=== PATIENT | female | born 1940 | race Caucasian/White ===

== ENCOUNTER 2019-01-08 10:03 | Emergency (ER) | payer OTHER ==
[2019-01-08] MEDS ORDERED: TRAMADOL HCL 50 MG TAB ONE (10:37)
--- NOTE | 2019-01-08 11:33 | RAD REPORT ---
EXAM DESCRIPTION: RAD - Chest Pa And Lat (2 Views) - 01/08/2019 10:46 am CLINICAL HISTORY: PAIN, left-sided back and rib pain COMPARISON: August 2017 TECHNIQUE: PA and lateral views of the chest were obtained. FINDINGS: The lungs are clear of failure, infiltrate or mass. Interstitial pattern is similar to th e comparison. Heart size is normal and central vasculature is within normal limits. No pleural effus ion or pneumothorax seen. Bones appear mildly osteopenic. No gross rib abnormality seen. Rib detail is limited on two view imaging. No acute aortic finding. Trachea is midline. Patient does have very advanced degenerative change and scoliotic curvature in the upper lumbar spine . This is only partially imaged on this study. IMPRESSION: No acute cardiopulmonary process. Rib detail is limited. Advanced degenerative change with left convex scoliotic curvature at the upper lumbar spine, only par tially imaged on this study.
--- NOTE | 2019-01-08 11:52 | ER ---
Nurse's Notes [facility] Name: Nilsa Romero Age: 78 yrs Sex: Female : 1940 Arrival Date: 01/08/2019 Time: 10:07 Bed 18 Private MD: Pio Campbell Diagnosis: Low back pain-chronic Presentation: 01/08 10:08 Presenting complaint: Patient states: Intermittent left low back pain, radiates to left jl7 upper back, began about a year ago and got worse this weekend. Transition of care: patient was not received from another setting of care. Onset of symptoms was 2018. Risk Assessment: Do you want to hurt yourself or someone else? Patient reports no desire to harm self or others. Initial Sepsis Screen: Does the patient meet any 2 criteria? No. Patient's initial sepsis screen is negative. Does the patient have a suspected source of infection? No. Patient's initial sepsis screen is negative. Care prior to arrival: None. 10:08 Method Of Arrival: Ambulatory [facility] 10:08 Acuity: BERNARD 3 jl7 Triage Assessment: 10:15 General: Appears in no apparent distress. comfortable, Behavior is cooperative, bp appropriate for age, anxious. Pain: Complains of pain in back. EENT: No deficits noted. Neuro: No deficits noted. Cardiovascular: No deficits noted. Respiratory: No deficits noted. GI: No signs and/or symptoms were reported involving the gastrointestinal system. : No signs and/or symptoms were reported regarding the genitourinary system. Derm: No deficits noted. Musculoskeletal: Circulation, motion, and sensation intact. Range of motion: intact in all extremities. Historical: - Allergies: 10:13 No Known Allergies; jl7 - Home Meds: 10:13 Atenolol Oral [Active]; pravastatin oral oral [Active]; losartan oral oral [Active]; jl7 Tramadol Oral [Active]; indapamide oral oral [Active]; levothyroxine 150 mcg tab [Active]; - PMHx: 10:13 Hyperlipidemia; Hypertension; Hypothyroidism; jl7 - PSHx: 10:13 Hysterectomy; jl7 - Immunization history:: Adult Immunizations up to date. - Social history:: Smoking status: Patient/guardian denies using tobacco. - Ebola Screening: : No symptoms or risks identified at this time. Screenin:33 Abuse screen: Denies threats or abuse. Denies injuries from another. Nutritional bp screening: No deficits noted. Tuberculosis screening: No symptoms or risk factors identified. Fall Risk None identified. Assessment: 10:15 General: SEE TRIAGE NOTE. Neuro: Level of Consciousness is awake, alert, obeys bp commands, Oriented to person, place, time, situation, Appropriate for age. 10:47 Reassessment: PT RETURNED FROM XRAY. bp 12:00 Reassessment: PT D/C HOME AMBULATORY WITH FAMILY, DX WITH CHRONIC BACK PAIN. bp Vital Signs: 10:13 BP 213 / 81; Pulse 69; Resp 16 S; Temp 97.4(TE); Pulse Ox 96% on R/A; Pain 8/10; jl7 10:48 BP 216 / 89; Pulse 68; Resp 16; Pulse Ox 96% ; bp 11:35 BP 203 / 74; Pulse 65; Resp 17; Temp 97.5; Pulse Ox 96% ; bp ED Course: 10:07 Patient arrived in ED. mr 10:07 Pio Campbell DO is Private Physician. mr 10:10 Triage completed. jl7 10:13 Arm band placed on right wrist. jl7 10:15 Rody Francis FNP-C is [facility]. kb 10:15 Dmitry Delgadillo MD is Attending Physician. kb 10:18 Maged Lazo, LESLIE is Primary Nurse. bp 10:33 Patient has correct armband on for positive identification. Bed in low position. Call bp light in reach. Side rails up X2. 10:40 Chest Pa And Lat (2 Views) XRAY In Process Unspecified. EDMS 11:52 Pio Campbell DO is Referral Physician. kb 12:00 No provider procedures requiring assistance completed. Patient did not have IV access bp during this emergency room visit. Administered Medications: 10:48 Drug: traMADol 50 mg Route: PO; bp 12:01 Follow up: Response: No adverse reaction; Pain is decreased bp Outcome: 11:52 Discharge ordered by . kb 12:00 Discharged to home ambulatory, with family. bp 12:00 Condition: stable 12:00 Discharge instructions given to patient, Instructed on discharge instructions, follow up and referral plans. medication usage, Demonstrated understanding of instructions, follow-up care, medications, Prescriptions given X 2. 12:01 Patient left the ED. bp Signatures: Dispatcher [employer] EDMS Rody Francis, LORI KNOXP-Chintan Mike Laura mr Jose Daniel Driver, RN RN jl7 Maged Lazo RN RN bp Corrections: (The following items were deleted from the chart) 10:15 10:08 Acuity: BERNARD 4 jl7 jl7
--- NOTE | 2019-01-08 11:53 | EDPHYS ---
Physician Documentation [facility] Name: Nilsa Romero Age: 78 yrs Sex: Female : 1940 Arrival Date: 01/08/2019 Time: 10:07 Bed 18 Private MD: Pio Campbell ED Physician Dmitry Delgadlilo HPI: 01/08 11:03 This 78 yrs old Female presents to ER via Ambulatory with complaints of Back kb Pain. 11:03 The patient presents with pain that is chronic, with no known mechanism of injury. The kb symptoms are located in the left subscapular area. Onset: The symptoms/episode began/occurred 1.5 year(s) ago, and became worse 3 day(s) ago. The pain does not radiate. Associated signs and symptoms: The patient has no apparent associated signs or symptoms. The problem was sustained from a chronic condition, without known cause. Modifying factors: The patient symptoms are alleviated by nothing, the patient symptoms are aggravated by nothing. Severity of symptoms: At their worst the symptoms were moderate, in the emergency department the symptoms are unchanged. The patient has experienced similar episodes in the past. The patient has not recently seen a physician. Pt reports chronic back pain that started approx 1.5 years ago. States the pain comes and goes, but it started up again 3 days ago and it has been constant since then. Nothing makes pain better or worse. Has seen Dr Monaco for this in the past and had negative x-rays. Denies injury or trauma. Historical: - Allergies: 10:13 No Known Allergies; jl7 - Home Meds: 10:13 Atenolol Oral [Active]; pravastatin oral oral [Active]; losartan oral oral [Active]; jl7 Tramadol Oral [Active]; indapamide oral oral [Active]; levothyroxine 150 mcg tab [Active]; - PMHx: 10:13 Hyperlipidemia; Hypertension; Hypothyroidism; jl7 - PSHx: 10:13 Hysterectomy; jl7 - Immunization history:: Adult Immunizations up to date. - Social history:: Smoking status: Patient/guardian denies using tobacco. - Ebola Screening: : No symptoms or risks identified at this time. ROS: 11:03 Constitutional: Negative for fever, chills, and weight loss, Neck: Negative for injury, kb pain, and swelling, Cardiovascular: Negative for chest pain, palpitations, and edema, Respiratory: Negative for shortness of breath, cough, wheezing, and pleuritic chest pain, Abdomen/GI: Negative for abdominal pain, nausea, vomiting, diarrhea, and constipation, : Negative for injury, bleeding, discharge, and swelling, MS/Extremity: Negative for injury and deformity, Skin: Negative for injury, rash, and discoloration, Neuro: Negative for headache, weakness, numbness, tingling, and seizure. 11:03 Back: Positive for pain at rest, pain with movement. Exam: 11:02 Constitutional: This is a well developed, well nourished patient who is awake, alert, kb and in no acute distress. Head/Face: Normocephalic, atraumatic. Neck: Trachea midline, no thyromegaly or masses palpated, and no cervical lymphadenopathy. Supple, full range of motion without nuchal rigidity, or vertebral point tenderness. No Meningismus. Chest/axilla: Normal chest wall appearance and motion. Nontender with no deformity. No lesions are appreciated. Cardiovascular: Regular rate and rhythm with a normal S1 and S2. No gallops, murmurs, or rubs. Normal PMI, no JVD. No pulse deficits. Respiratory: Lungs have equal breath sounds bilaterally, clear to auscultation and percussion. No rales, rhonchi or wheezes noted. No increased work of breathing, no retractions or nasal flaring. Abdomen/GI: Soft, non-tender, with normal bowel sounds. No distension or tympany. No guarding or rebound. No evidence of tenderness throughout. Skin: Warm, dry with normal turgor. Normal color with no rashes, no lesions, and no evidence of cellulitis. MS/ Extremity: Pulses equal, no cyanosis. Neurovascular intact. Full, normal range of motion. Neuro: Awake and alert, GCS 15, oriented to person, place, time, and situation. Cranial nerves II-XII grossly intact. Motor strength 5/5 in all extremities. Sensory grossly intact. Cerebellar exam normal. Normal gait. 11:02 Back: pain, that is moderate, of the left subscapular area, ROM is normal, normal spinal alignment noted, CVA tenderness, is absent, vertebral tenderness, is not appreciated. Vital Signs: 10:13 BP 213 / 81; Pulse 69; Resp 16 S; Temp 97.4(TE); Pulse Ox 96% on R/A; Pain 8/10; jl7 10:48 BP 216 / 89; Pulse 68; Resp 16; Pulse Ox 96% ; bp 11:35 BP 203 / 74; Pulse 65; Resp 17; Temp 97.5; Pulse Ox 96% ; bp MDM: 10:16 Patient medically screened. kb 11:02 Data reviewed: vital signs, nurses notes. Data interpreted: Pulse oximetry: on room air kb is 96 %. Interpretation: normal. 11:49 Counseling: I had a detailed discussion with the patient and/or guardian regarding: the kb historical points, exam findings, and any diagnostic results supporting the discharge/admit diagnosis, radiology results, the need for outpatient follow up, a family practitioner, to return to the emergency department if symptoms worsen or persist or if there are any questions or concerns that arise at home. ED course: Pt reports pain is better, but still there. Denies headache or any other symptoms related to elevated blood pressure. Reports she didn't take her blood pressure meds because of the pain in her back so that is probably why it is up, plus she didn't sleep much last night. Has appt with Dr Campbell tomorrow. Educated to discuss blood pressure if it is still elevated after taking her medications and to discuss possible MRI for chronic back pain. 01/08 10:27 Order name: Chest Pa And Lat (2 Views) XRAY; Complete Time: 11:39 kb 01/08 11:31 Order name: Vital Signs; Complete Time: 11:35 kb Administered Medications: 10:48 Drug: traMADol 50 mg Route: PO; bp 12:01 Follow up: Response: No adverse reaction; Pain is decreased bp Disposition: 12:12 Co-signature as Attending Physician, Dmitry Delgadillo MD. rn Disposition: 01/08/19 11:52 Discharged to Home. Impression: Low back pain - chronic. - Condition is Stable. - Discharge Instructions: Back Injury Prevention, [id number], Back Pain, Adult, [id number], Back Exercises, [id number]. - Prescriptions for Skelaxin 800 mg Oral Tablet - take 1 tablet by ORAL route every 8 hours As needed; 30 tablet. Diclofenac Sodium 75 mg Oral Tablet, Delayed Release (E.C.) - take 1 tablet by ORAL route 2 times per day As needed; 30 tablet. - Medication Reconciliation Form, Thank You Letter, Antibiotic Education, Prescription Opioid Use form. - Follow up: Emergency Department; When: As needed; Reason: Worsening of condition. Follow up: Pio Campbell DO; When: Tomorrow; Reason: Recheck today's complaints, Continuance of care, Re-evaluation by your physician. Signatures: Dispatcher [employer] EDMI Rody Francis, WOOL DYER-C WOOL DYER-Ckb Dmitry Delgadillo MD MD rn Jose Daniel Driver RN RN jl7 Maged Lazo RN RN bp Corrections: (The following items were deleted from the chart) 12:01 11:52 01/08/2019 11:52 Discharged to Home. Impression: Low back pain - chronic. bp Condition is Stable. Forms are Medication Reconciliation Form, Thank You Letter, Antibiotic Education, Prescription Opioid Use. Follow up: Emergency Department; When: As needed; Reason: Worsening of condition. Follow up: Pio Campbell; When: Tomorrow; Reason: Recheck today's complaints, Continuance of care, Re-evaluation by your physician. kb
[2019-01-08 12:10] VITALS: O2SAT 96
[2019-01-08 12:12] VITALS: BP 203/74; TEMP 97.5
== END 2019-01-08 12:01 | disposition home or self-care (01) ==
LOC: ER 10:03
DX: M54.5 Low back pain (principal); I10 Essential (primary) hypertension; E03.9 Hypothyroidism, unspecified; E78.5 Hyperlipidemia, unspecified
CPT/HCPCS: 71046; 99283

== ENCOUNTER 2020-05-14 09:17 | Emergency (ER) | payer OTHER ==
--- OUTSIDE RECORDS SUMMARY | 2020-05-14 09:20 | XMS REPORT | Continuity of Care Document ---
:1940 Author Organization [facility] t Address [address] [place] [address] Care Team Providers Name Role Phone Unavailable Unavailable Unavailable Problems Condition Condition Condition Status Onset Resolution Last Treating Co mments Source Name Details Category Date Date Treatment Clinician Date Hypothyroi Hypothyroi Problem Active 0 [facility] dism dism 5-12 Family 00:00: Practic 00 e Chronic Chronic Problem Active 2020-0 [facility] back pain Back Pain 5-12 Fami ly 00:00: Practic 00 e Hyperlipid Hyperlipid Problem Active 2020-0 [facility] emia emia 5-11 Family 00:00: Practic 00 e Essential Essential Problem Active 0 [place] samuel hypertensi Hypertensi 5-11 Fa piper on on 00:00: Practic 00 e Allergies, Adverse Reactions, Alerts This patient has no known allergies or adverse reactions. Social History Smoking Status Start Date Stop Date Source Former Smoker [facility] Family P ractice Medications Ordered Filled Start Stop Current Ordering Indication Dosage Frequency Signature Comments Components Source Medication Medication Date Date Medication? Clinician (SIG) Name Name Levothyroxi Levothyroxi 2019-0 Yes [place] [address] [facility] ne Sodium ne Sodium 3-30 [place] in the [facility]ha kes - 00:00: morning on Mem 00 an empty l stomach Outpati ent Clinics atenolol atenolol No 1 Q1D atenolol [place] samuel 100 mg 100 mg 100 mg Family tablet Take tablet Take tablet Practic 1 tablet 1 tablet Take 1 e every day every day tablet by oral by oral every day route. route. by oral route. ibuprofen ibuprofen No 1 Q6H ibuprofen [place] 200 mg 200 mg 200 mg Family tablet Take tablet Take tablet Practic 1 tablet 1 tablet Take 1 e every 6 every 6 tablet hours by hours by every 6 oral route. oral route. hours by oral route. indapamide indapamide No 1 Q1D indapamide [facility] 2.5 mg 2.5 mg 2.5 mg Family tablet Take tablet Take tablet Practic 1 tablet 1 tablet Take 1 e every day every day tablet by oral by oral every day route. route. by oral route. levothyroxi levothyroxi No 1capsul Q1D levothyrox [facility] ne 112 mcg ne 112 mcg e(s) ine 112 Family capsule capsule mcg Practic Take 1 Take 1 capsule e capsule capsule Take 1 every day every day capsule by oral by oral every day route. route. by oral route. losartan losartan No 1 Q1D losartan [place] samuel 100 mg 100 mg 100 mg Family tablet Take tablet Take tablet Practic 1 tablet 1 tablet Take 1 e every day every day tablet by oral by oral every day route. route. by oral route. potassium potassium No 1mg Q1D potassium [facility] gluconate gluconate gluconate [facility] 550 mg (90 550 mg (90 550 mg (90 Practic mg) tablet mg) tablet mg) tablet e Take 1 mg Take 1 mg Take 1 mg every day every day every day by oral by oral by oral route with route with route with meals. meals. meals. pravastatin pravastatin No 1 Q1D pravastati [facility] 40 mg 40 mg n 40 mg Family tablet Take tablet Take tablet Practic 1 tablet 1 tablet Take 1 e every day every day tablet by oral by oral every day route. route. by oral route. Fish Oil Fish Oil Yes Hector [address] [facility] Clinics Vitamin C Vitamin C Yes [facility] [address] [facility] Atenolol Atenolol Yes [place] [address] [facility] Diclofenac Diclofenac Yes Hector not C [facility] defined kes - [facility] Vitamin B12 Vitamin B12 Yes [facility] [address] [facility] Vitamin E Vitamin E Yes [place]ector [address] [facility] Calcium Calcium Yes [place] [address] [facility] [place] with a [facility] meal [facility] l [facility] Magnesium Magnesium Yes [place] [address] [facility] [place] with a [facility] meal [facility] Potassium Potassium Yes [place] [address] [facility] Indapamide Indapamide Yes [place] [address] [facility] [place] in the [facility] morning [facility] Losartan Losartan Yes Hector TAKE [address] [facility] [address] Potassium Potassium [place] TABLET [facility]ha kes - ONCE DAILY Memoria l [facility] Folic Acid Folic Acid Yes [place]ector [address] [facility] Biotin Biotin Yes [place]ector [address] [facility] Aspir-81 Aspir-81 Yes [place] [address] [facility] Levothyroxi Levothyroxi Yes [place] [address] [facility] ne Sodium ne Sodium [place] on an [place] es - empty Memoria stomach in l the [facility] Clinics Pravastatin Pravastatin Yes [place]ector [address] Sodium Sodium [facility] Immunizations Ordered Immunization Filled Immunization Date Status Commen ts Source Name Name influenza, influenza, 2017-12-[address] [facility] injectable, injectable, 00:00:00 Practice quadrivalent quadrivalent Vital Signs Vital Name Observation Time Observation Value Comments Source Height 2019-07-31 00:00:00 68 [in_i] [facility] BMI (Body Mass 2019-07-31 00:00:00 23.6 kg/m2 [facility] Family Index) Practice Body Weight 2019-07-31 00:00:00 155 [lb_av] [facility] Procedures This patient has no known procedures. Plan of Care Planned Activity Planned Date Details Comments Source Instructions [facility] Encounters Start End Encounter Admission Attending Care Care Encounter Source Date/Time Date/Time Type Type Clinicians Facility Department ID 2020-03-05 2020-03-05 Outpatient [facility] [id number] [facility] 2019-12-17 2019-12-17 Outpatient [facility] [id number] [facility] 2019-12-03 2019-12-03 [facility] [id number] 10:20:00 10:20:00 [place] [facility] - [employer] 2019-08-31 2019-08-31 [facility] [id number] 09:00:00 09:00:00 t DEMANDIT s - [employer] [facility] 2019-08-31 2019-08-31 [facility] [id number] [address] 09:00:00 09:00:00 t DEMANDIT s - [employer] [facility] 2019-07-31 2019-07-31 Isabelle [facility] [place] - [id number] [facility]age 00:00:00 00:00:00 [facility] paula infante 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 2019-06-16 2019-06-16 [facility] [id number] 07:56:00 07:56:00 t [employer] [facility] 2019-05-16 2019-05-16 [facility] [id number] 11:13:00 11:13:00 t DEMANDIT s [employer] [facility] 2019-04-09 2019-04-09 [facility] [id number] 10:30:00 10:30:00 t [employer] [facility] Results This patient has no known results.
--- NOTE | 2020-05-14 10:47 | RAD REPORT ---
EXAM DESCRIPTION: RAD - Ankle Left 3 View -05/14/2020 10:13 am CLINICAL HISTORY: Left ankle pain status post injury FINDINGS: Cortical regularity involves the lateral malleolus which may represent a nondisplaced frac ture. Bones are osteoporotic. No dislocation. Large plantar calcaneal spur
--- NOTE | 2020-05-14 11:13 | ER ---
Nurse's Notes [facility] Name: Nilsa Romero Age: 80 yrs Sex: Female : 1940 Arrival Date: 05/14/2020 Time: 09:19 Bed 11 Private MD: Hector Garnett Diagnosis: Nondisplaced fracture left lateral malleolus Presentation: 05/14 09:34 Chief complaint: Patient states: "I slipped and fell on ice last week and hurt my left aa5 ankle". Pt denies head injury, reports pain to left ankle. Coronavirus screen: At this time, the client does not indicate any symptoms associated with coronavirus-19. Ebola Screen: Patient negative for fever greater than or equal to 101.5 degrees Fahrenheit, and additional compatible Ebola Virus Disease symptoms. Initial Sepsis Screen: Does the patient meet any 2 criteria? No. Patient's initial sepsis screen is negative. Does the patient have a suspected source of infection? No. Patient's initial sepsis screen is negative. Risk Assessment: Do you want to hurt yourself or someone else? Patient reports no desire to harm self or others. Onset of symptoms was April 2020. 09:34 Acuity: BERNARD 4 aa5 09:34 Method Of Arrival: Ambulatory aa5 Historical: - Allergies: 09:35 No Known Allergies; aa5 - PMHx: 09:35 Hyperlipidemia; Hypertension; Hypothyroidism; aa5 - PSHx: 09:35 Hysterectomy; aa5 - Immunization history:: Adult Immunizations unknown. - Social history:: Smoking status: Patient denies any tobacco usage or history of. Screenin:30 Abuse screen: Denies threats or abuse. Nutritional screening: No deficits noted. aa5 Tuberculosis screening: No symptoms or risk factors identified. Fall Risk Fall in past 12 months (25 points). Total Urbina Fall Scale indicates Low Risk Score (25-44 pts). Fall prevention measures have been instituted. Side Rails Up X 2. Assessment: 10:30 General: Appears comfortable, Behavior is calm, cooperative. Pain: Complains of pain in aa5 left ankle. Neuro: Level of Consciousness is awake, alert, obeys commands, Oriented to person, place, time, situation. Cardiovascular: Patient's skin is warm and dry. Respiratory: Airway is patent Respiratory effort is even, unlabored, Respiratory pattern is regular, symmetrical. GI: No signs and/or symptoms were reported involving the gastrointestinal system. : No signs and/or symptoms were reported regarding the genitourinary system. EENT: No signs and/or symptoms were reported regarding the EENT system. Derm: Skin is pink, warm \\T\\ dry. Musculoskeletal: Swelling present in left ankle. 11:30 Reassessment: Patient is alert, oriented x 3, equal unlabored respirations, skin aa5 warm/dry/pink. Vital Signs: 09:35 BP 160 / 73; Pulse 72; Resp 16 S; Temp 98.2(O); Pulse Ox 98% on R/A; Weight 78.47 kg; aa5 Height 5 ft. 8 in. (172.72 cm) (R); 09:35 Body Mass Index 26.30 (78.47 kg, 172.72 cm) aa5 ED Course: 09:19 Patient arrived in ED. ag5 09:19 Hector Garnett DO is Private Physician. ag5 09:34 Arm band placed on. aa5 09:35 Triage completed. aa5 09:48 R[facility] Francis F[facility]-C [facility]. kb 09:48 Dmitry Delgadillo MD is Attending Physician. kb 10:13 Ankle Left 3 View XRAY In Process Unspecified. EDMS 10:30 Patient has correct armband on for positive identification. Bed in low position. aa5 10:36 Isamar Jennings, LESLIE is Primary Nurse. aa5 11:13 Boubacar Floyd MD is Referral Physician. kb 11:30 No provider procedures requiring assistance completed. Patient did not have IV access aa5 during this emergency room visit. Administered Medications: No medications were administered Outcome: 11:13 Discharge ordered by . kb 11:30 Discharged to home via wheelchair, Pt was offered walking boot by [employer] but pt stated she aa5 has one at home. 11:30 Condition: stable 11:30 Discharge instructions given to patient, Instructed on discharge instructions, follow up and referral plans. Demonstrated understanding of instructions, follow-up care. 11:37 Patient left the ED. aa5 Signatures: Dispatcher [employer] EDMS Rody Francis FNP-C FNP-Isamar Humphrey, RN RN aa5 Nicholas, Ajare ag5 Corrections: (The following items were deleted from the chart) 09:37 09:35 BP 160 / 73; Pulse 72bpm; Resp 16bpm; Spontaneous; Pulse Ox 98% RA; 78.47 kg; aa5 Height 5 ft. 8 in. Reported; BMI: 26.3; aa5
--- NOTE | 2020-05-14 11:14 | EDPHYS ---
Physician Documentation [facility] Name: Nilsa Romero Age: 80 yrs Sex: Female : 1940 Arrival Date: 05/14/2020 Time: 09:19 Bed 11 Private MD: [facility] ED Physician Dmitry Delgadillo HPI: 05/14 11:50 This 80 yrs old Female presents to ER via Ambulatory with complaints of Foot kb Pain, Foot Injury. 11:51 The patient presents with an injury, pain. The complaints affect the left ankle. Onset: kb The symptoms/episode began/occurred 1 week(s) ago. Context: The problem was sustained at home, resulted from the patient falling, The patient can fully bear weight on the affected extremity. the patient is able to ambulate. Associated signs and symptoms: The patient has no apparent associated signs or symptoms. Modifying factors: The symptoms are alleviated by nothing, the symptoms are aggravated by nothing. Severity of symptoms: At their worst the symptoms were mild, in the emergency department the symptoms are unchanged. The patient has experienced a previous episode. The patient has not recently seen a physician. Pt reports she slipped in the ice last week and her foot went under her. reports pain to left ankle. Has been walking without difficulty. States she came in to see if it was broken and if she needed an antibiotic. Historical: - Allergies: 09:35 No Known Allergies; aa5 - PMHx: 09:35 Hyperlipidemia; Hypertension; Hypothyroidism; aa5 - PSHx: 09:35 Hysterectomy; aa5 - Immunization history:: Adult Immunizations unknown. - Social history:: Smoking status: Patient denies any tobacco usage or history of. ROS: 11:41 Constitutional: Negative for fever, chills, and weight loss, Cardiovascular: Negative kb for chest pain, palpitations, and edema, Respiratory: Negative for shortness of breath, cough, wheezing, and pleuritic chest pain, Abdomen/GI: Negative for abdominal pain, nausea, vomiting, diarrhea, and constipation, Neuro: Negative for headache, weakness, numbness, tingling, and seizure. 11:41 MS/extremity: Positive for injury or acute deformity, ecchymosis, pain, swelling, tenderness, of the left lateral ankle and dorsum of left foot. 11:48 Skin: Positive for ecchymosis, of the anterior aspect of left ankle and dorsum of left kb foot. Exam: 11:48 Constitutional: This is a well developed, well nourished patient who is awake, alert, kb and in no acute distress. Head/Face: Normocephalic, atraumatic. 11:48 Musculoskeletal/extremity: Extremities: grossly normal except: noted in the dorsum of left foot: ecchymosis, noted in the left lateral ankle: pain, tenderness, ROM: intact in all extremities, Circulation is intact in all extremities. Sensation intact. Weight bearing: able to fully bear weight. 11:48 Skin: Appearance: normal except for affected area, ecchymosis, that are mild, of the dorsum of left foot. Vital Signs: 09:35 BP 160 / 73; Pulse 72; Resp 16 S; Temp 98.2(O); Pulse Ox 98% on R/A; Weight 78.47 kg; aa5 Height 5 ft. 8 in. (172.72 cm) (R); 09:35 Body Mass Index 26.30 (78.47 kg, 172.72 cm) aa5 MDM: 10:30 Patient medically screened. kb 11:41 Data reviewed: vital signs, nurses notes. Data interpreted: Pulse oximetry: on room air kb is 98 %. Interpretation: normal. Counseling: I had a detailed discussion with the patient and/or guardian regarding: the historical points, exam findings, and any diagnostic results supporting the discharge/admit diagnosis, radiology results, the need for outpatient follow up, a orthopedic surgeon, to return to the emergency department if symptoms worsen or persist or if there are any questions or concerns that arise at home. ED course: Pt has a walking boot at home that she will use and has norco for pain. 05/14 09:48 Order name: Ankle Left 3 View XRAY; Complete Time: 10:52 kb Administered Medications: No medications were administered Disposition: 17:54 Co-signature as Attending Physician, Dmitry Delgadillo MD. rn Disposition: 05/14/20 11:13 Discharged to Home. Impression: Nondisplaced fracture left lateral malleolus. - Condition is Stable. - Discharge Instructions: Ankle Fracture, [id number]. - Medication Reconciliation Form, Thank You Letter, Antibiotic Education, Prescription Opioid Use form. - Follow up: Private Physician; When: 2 - 3 days; Reason: Recheck today's complaints, Continuance of care, Re-evaluation by your physician. Follow up: Emergency Department; When: As needed; Reason: Worsening of condition. Follow up: Boubacar Floyd MD; When: 2 - 3 days; Reason: Recheck today's complaints, Continuance of care, Re-evaluation by your physician. Signatures: Dispatcher [employer] EDMS Rody Francis, ASSOCIATE TRAINER-C ASSOCIATE TRAINER-Ckb Dmitry Delgadillo MD MD rn Calderon, Audri, RN RN aa5 Corrections: (The following items were deleted from the chart) 11:37 11:13 05/14/2020 11:13 Discharged to Home. Impression: Nondisplaced fracture left aa5 lateral malleolus. Condition is Stable. Forms are Medication Reconciliation Form, Thank You Letter, Antibiotic Education, Prescription Opioid Use. Follow up: Private Physician; When: 2 - 3 days; Reason: Recheck today's complaints, Continuance of care, Re-evaluation by your physician. Follow up: Emergency Department; When: As needed; Reason: Worsening of condition. Follow up: Boubacar Floyd; When: 2 - 3 days; Reason: Recheck today's complaints, Continuance of care, Re-evaluation by your physician. kb 11:50 11:41 Constitutional: Negative for fever, chills, and weight loss, kb kb 11:51 11:41 Constitutional: Negative for fever, chills, and weight loss, Cardiovascular: kb Negative for chest pain, palpitations, and edema, Respiratory: Negative for shortness of breath, cough, wheezing, and pleuritic chest pain, Abdomen/GI: Negative for abdominal pain, nausea, vomiting, diarrhea, and constipation, kb
[2020-05-14 11:46] VITALS: BP 160/73; TEMP 98.2; O2SAT 98
== END 2020-05-14 11:37 | disposition home or self-care (01) ==
LOC: ER 09:17
DX: S82.65XA Nondisplaced fracture of lateral malleolus of left fibula, initial encounter for closed fracture (principal); W00.0XXA Fall on same level due to ice and snow, initial encounter; Y93.01 Activity, walking, marching and hiking; Y92.9 Unspecified place or not applicable; I10 Essential (primary) hypertension
CPT/HCPCS: 99283

== ENCOUNTER 2020-08-16 08:54 | Emergency (ER) | payer OTHER ==
--- OUTSIDE RECORDS SUMMARY | 2020-08-16 08:57 | XMS REPORT | Continuity of Care Document ---
:1940 Author Organization [facility] t Address [address] [place] [address] Care Team Providers Name Role Phone Unavailable Unavailable Unavailable Problems Condition Condition Condition Status Onset Resolution Last Treating Co mments Source Name Details Category Date Date Treatment Clinician Date Hypothyroi Hypothyroi Problem Active 2019-0 [facility] dism dism 5-12 Family 00:00: Practic 00 e Chronic Chronic Problem Active 2020-0 [place] back pain Back Pain 5-12 Fami ly 00:00: Practic 00 e Hyperlipid Hyperlipid Problem Active 2020-0 [facility] emia emia 5-11 Family 00:00: Practic 00 e Essential Essential Problem Active 2019-0 Payton samuel hypertensi Hypertensi 5-11 Fa piper on on 00:00: Practic 00 e Allergies, Adverse Reactions, Alerts This patient has no known allergies or adverse reactions. Social History Smoking Status Start Date Stop Date Source Former Smoker [facility] Medications Ordered Filled Start Stop Current Ordering Indication Dosage Frequency Signature Comments Components Source Medication Medication Date Date Medication? Clinician (SIG) Name Name Levothyroxi Levothyroxi 0 Yes Hector [address] [facility] ne Sodium ne Sodium 3-30 Garnett in the Kesha kes - 00:00: morning on Mem 00 an empty l stomach Outpati ent Clinics indapamide indapamide No 1 Q1D indapamide [facility] 2.5 mg 2.5 mg 2.5 mg Family tablet Take tablet Take tablet Practic 1 tablet 1 tablet Take 1 e every day every day tablet by oral by oral every day route. route. by oral route. levothyroxi levothyroxi No 1capsul Q1D levothyrox [facility] ne 112 mcg ne 112 mcg [...] route. potassium potassium No 1mg Q1D potassium [facility] gluconate gluconate gluconate [facility] 550 mg (90 550 mg (90 550 mg (90 Practic mg) tablet mg) tablet mg) tablet e Take 1 mg Take 1 mg Take 1 mg every day every day every day by oral by oral by oral route with route with route with meals. meals. meals. pravastatin pravastatin No 1 Q1D pravastati [facility] 40 mg 40 mg n 40 mg Family tablet Take tablet Take tablet Practic 1 tablet 1 tablet Take 1 e every day every day tablet by oral by oral every day route. route. by oral route. atenolol atenolol No 1 Q1D atenolol [place] samuel 100 mg 100 mg 100 mg Family tablet Take tablet Take tablet Practic 1 tablet 1 tablet Take 1 e every day every day tablet by oral by oral every day route. route. by oral route. ibuprofen ibuprofen No 1 Q6H ibuprofen [facility] 200 mg 200 mg 200 mg Family tablet Take tablet Take tablet Practic 1 tablet 1 tablet Take 1 e every 6 every 6 tablet hours by hours by every 6 oral route. oral route. hours by oral route. Fish Oil Fish Oil Yes Hector 1 capsule [facility] Vitamin C Vitamin C Yes Hector 1 tablet [facility] Atenolol Atenolol Yes Hector 1 tablet C [facility] Diclofenac Diclofenac Yes Hector not C [facility] defined [facility] ent Clinics Vitamin B12 Vitamin B12 Yes Hector [address] [facility] ent [facility] Vitamin E Vitamin E Yes Hector 1 capsule [facility] Calcium Calcium Yes Hector [address] [facility] with a [facility] Magnesium Magnesium Yes Hector [address] [facility]ett with a [facility] Potassium Potassium Yes Hector [address] [facility] Indapamide Indapamide Yes Hector [address] [facility] Garnett in the [facility] morning [facility] Losartan Losartan Yes Hector TAKE [address] [facility] Potassium Potassium Garnett TABLET [facility]ha kes - ONCE DAILY [facility] Folic Acid Folic Acid Yes Hector [address] [facility] Biotin Biotin Yes Hector [address] [facility] Aspir-81 Aspir-81 Yes Hector [address] [facility]ics Levothyroxi Levothyroxi Yes Hector [address] [facility] ne Sodium ne Sodium Garnett on an [place] es - empty Memoria stomach in l the Outpati morning ent Clinics Pravastatin Pravastatin Yes Hector [address] Sodium Sodium [facility] Clinics Immunizations Ordered Immunization Filled Immunization Date Status Commen ts Source Name Name influenza, influenza, 2017-12-[address] [facility] injectable, injectable, 00:00:00 Practice quadrivalent quadrivalent Vital Signs Vital Name Observation Time Observation Value Comments Source Height 2019-07-31 00:00:00 68 [in_i] [facility] BMI (Body Mass 2019-07-31 00:00:00 23.6 kg/m2 [facility] Family Index) Practice Body Weight 2019-07-31 00:00:00 155 [lb_av] [facility] Procedures This patient has no known procedures. Plan of Care Planned Activity Planned Date Details Comments Source Future Appointment 2021-02-05 00:00:00 Isabelle chatman [facility] Ricardo, [address]; [address], [place] [address] Instructions [facility] Encounters Start End Encounter Admission Attending Care Care Encounter Source Date/Time Date/Time Type Type Clinicians Facility Department ID 2020-08-05 2020-08-05 Isabelle [facility] [place] - [id number] [facility] illage 00:00:00 00:00:00 Karol [facility] paula infante, RECONCILIATION CLERK: Medical - Practi daisy [email or web address], [address] [address], [place] [address] , Ph. 2020-06-16 2020-06-16 Outpatient [facility] [id number] [facility] 2020-05-22 2020-05-22 Outpatient [facility] [id number] [facility] 2020-03-05 2020-03-05 Outpatient [facility]ML[facility] [id number] [facility] 2019-12-17 2019-12-17 Outpatient [facility]ML[facility] [id number] [facility] 2019-12-03 2019-12-03 [facility] [id number] 10:20:00 10:20:00 [employer] [facility] l Medicine Outpati ent Clinics 2019-08-31 2019-08-31 [facility] [id number] 09:00:00 09:00:00 [employer] [facility] l Medicine Outpati ent Clinics 2019-08-31 2019-08-31 [facility] [id number] 09:00:00 09:00:00 t [employer] [facility] Medicine Outpati ent Clinics 2019-07-31 2019-07-31 Isabelle [facility] [place] - [id number] V illage 00:00:00 00:00:00 [facility] Antonio infante RECONCILIATION CLERK: Medical - Practi daisy [address] [email or web address], [address] [address], [place] [address] , Ph. 2019-06-16 2019-06-16 [facility] [id number] 07:56:00 07:56:00 [employer] [facility] 2019-05-16 2019-05-16 [facility] [id number] [facility] 11:13:00 11:13:00 [employer] [facility] 2019-04-09 2019-04-09 [facility] [id number] 10:30:00 10:30:00 [employer] [facility] ent Clinics Results This patient has no known results.
[2020-08-16 10:01] LABS: Absolute Lymphocytes (CBC) 1.2 K/uL (0.7-4.9); Basophils % 0.4 % (0-1.3); Hematocrit 37.2 % (36.0-45.0); Lymphocytes % 12.9 % (15.3-44.8); MPV 8.4 fL (7.6-11.3); RBC Red Blood Cell Count 3.88 M/uL (3.86-4.86)
[2020-08-16 10:10] LABS: Albumin 3.9 g/dL (3.4-5.0); Bilirubin Total 0.5 mg/dL (0.2-1.0); Potassium 3.4 mmol/L (3.5-5.1); Protein, Total 7.4 g/dL (6.4-8.2)
--- NOTE | 2020-08-16 10:10 | RAD REPORT ---
EXAM DESCRIPTION: CT - Head C Spine Cap Lu Con - 08/16/2020 9:41 am TECHNIQUE: Computed axial tomography of the head and cervical spine was obtained. Coronal and sagitt al reconstruction was performed Computed axial tomography of the chest, abdomen and pelvis was obtained. Contrast was not requested. All CT scans are performed using dose optimization technique as appropriate and may include automated exposure control or mA/KV adjustment according to patient size. CLINICAL HISTORY: Head and neck injury with chest and abdominal pain status post fall COMPARISON: None FINDINGS: An intracranial bleed is not seen. The ventricles are normal in caliber. An extra-axial fluid collection is not noted. . 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 Fluid within the sinuses/mastoids is not seen. A cervical fracture is not seen. No dislocation is noted. The evaluation of mediastinum, reji, vessels, solid organs and bowel are limited secondary to the lac k of contrast administration. A mediastinal hematoma is not noted. A pleural effusion is not seen. A lung contusion is not present. Moderately displaced fracture left fourth posterior rib. Mildly displaced fracture left fifth carbonizer ior rib. Moderately displaced fracture left posterior 6 rib. No pneumothorax. Old fractures involve l eft second and third anterior ribs. The liver,spleen, pancreas, adrenals,kidneys and bladder do not demonstrate a traumatic injury. Infrarenal abdominal aortic aneurysm has an AP diameter of 3.2 centimeters. The descending thoracic a laurent is ectatic IMPRESSION: 1. No acute intracranial abnormality is seen. 2. A cervical fracture is not visualized. If the patient continues have symptoms to suggest intracran ial/spinal cord pathology MRI be recommended 3. Acute fractures involving the left fourth, fifth and six posterior ribs.
[2020-08-16] MEDS ORDERED: ONDANSETRON 4 MG/2 ML VIAL ONE (10:11)
[2020-08-16] MEDS ORDERED: MORPHINE 2 MG/ML SYR ONE (10:11)
[2020-08-16] MEDS ORDERED: NA CHLORIDE 0.9% 500 ML ONE (10:11)
--- NOTE | 2020-08-16 10:11 | RAD REPORT ---
EXAM DESCRIPTION: RAD - Shoulder Left 2 View - 08/16/2020 9:54 am CLINICAL HISTORY: Left shoulder pain status post fall FINDINGS: No fracture or dislocation is seen involving the left shoulder.
--- NOTE | 2020-08-16 10:30 | EDPHYS ---
Physician Documentation [facility] Name: Nilsa Romero Age: 80 yrs Sex: Female : 1940 Arrival Date: 08/16/2020 Time: 08:59 Bed 3 Private MD: ED Physician Butch Hess HPI: 08/16 09:16 This 80 yrs old Female presents to ER via Wheelchair with complaints of Fall yudy Injury. 09:16 Details of fall: The patient fell from a height, off furniture, approximately 3 feet. yudy Onset: The symptoms/episode began/occurred just prior to arrival. Associated injuries: The patient sustained injury to the head, neck injury, upper back injury, decreased range of motion, pain, pain with movement. Severity of symptoms: At their worst the symptoms were mild, moderate, in the emergency department the symptoms are unchanged. The patient has not experienced similar symptoms in the past. Historical: - Allergies: 09:13 No Known Allergies; ll1 - PMHx: 09:13 Hyperlipidemia; Hypertension; Hypothyroidism; ll1 - PSHx: 09:13 Hysterectomy; ll1 - Immunization history:: Client reports receiving the 2nd dose of the Covid vaccine, Flu vaccine is up to date. - Social history:: Smoking status: Patient denies any tobacco usage or history of. ROS: 09:17 Constitutional: Negative for fever, chills, and weight loss, Eyes: Negative for injury, yudy pain, redness, and discharge, ENT: Negative for injury, pain, and discharge, Neck: Negative for injury, pain, and swelling, Cardiovascular: Negative for chest pain, palpitations, and edema, Respiratory: Negative for shortness of breath, cough, wheezing, and pleuritic chest pain, Abdomen/GI: Negative for abdominal pain, nausea, vomiting, diarrhea, and constipation, : Negative for injury, bleeding, discharge, and swelling, Skin: Negative for injury, rash, and discoloration, Neuro: Negative for headache, weakness, numbness, tingling, and seizure, Psych: Negative for depression, anxiety, suicide ideation, homicidal ideation, and hallucinations, Allergy/Immunology: Negative for hives, rash, and allergies, Endocrine: Negative for neck swelling, polydipsia, polyuria, polyphagia, and marked weight changes, Hematologic/Lymphatic: Negative for swollen nodes, abnormal bleeding, and unusual bruising. 09:17 Back: Positive for decreased range of motion, pain at rest, pain with movement. 09:17 MS/extremity: Positive for decreased range of motion, pain, tenderness, of the anterior aspect of left shoulder and posterior aspect of left shoulder. Exam: 09:17 Constitutional: This is a well developed, well nourished patient who is awake, alert, yudy and in no acute distress. Head/Face: Normocephalic, atraumatic. Eyes: Pupils equal round and reactive to light, extra-ocular motions intact. Lids and lashes normal. Conjunctiva and sclera are non-icteric and not injected. Cornea within normal limits. Periorbital areas with no swelling, redness, or edema. ENT: Nares patent. No nasal discharge, no septal abnormalities noted. Tympanic membranes are normal and external auditory canals are clear. Oropharynx with no redness, swelling, or masses, exudates, or evidence of obstruction, uvula midline. Mucous membranes moist. Neck: Trachea midline, no thyromegaly or masses palpated, and no cervical lymphadenopathy. Supple, full range of motion without nuchal rigidity, or vertebral point tenderness. No Meningismus. Chest/axilla: Normal chest wall appearance and motion. Nontender with no deformity. No lesions are appreciated. Cardiovascular: Regular rate and rhythm with a normal S1 and S2. No gallops, murmurs, or rubs. Normal PMI, no JVD. No pulse deficits. Respiratory: Lungs have equal breath sounds bilaterally, clear to auscultation and percussion. No rales, rhonchi or wheezes noted. No increased work of breathing, no retractions or nasal flaring. Abdomen/GI: Soft, non-tender, with normal bowel sounds. No distension or tympany. No guarding or rebound. No evidence of tenderness throughout. Female : Normal external genitalia. Skin: Warm, dry with normal turgor. Normal color with no rashes, no lesions, and no evidence of cellulitis. Neuro: Awake and alert, GCS 15, oriented to person, place, time, and situation. Cranial nerves II-XII grossly intact. Motor strength 5/5 in all extremities. Sensory grossly intact. Cerebellar exam normal. Normal gait. Psych: Awake, alert, with orientation to person, place and time. Behavior, mood, and affect are within normal limits. 09:17 Back: pain, that is mild, ROM is normal spinal alignment noted, CVA tenderness, is absent, vertebral tenderness, is not appreciated, muscle spasm, is appreciated in the left low back, left mid back, right mid back and right low back. Vital Signs: 09:11 BP 212 / 83; Pulse 80; Resp 17; Temp 98.3; Pulse Ox 97% ; Weight 77.11 kg; Height 5 ft. ll1 8 in. (172.72 cm); Pain 5/10; 11:10 BP 221 / 90; Pulse 75; Resp 17 S; Pulse Ox 98% on R/A; jd3 09:11 Body Mass Index 25.85 (77.11 kg, 172.72 cm) ll1 MDM: 09:06 Patient medically screened. [facility] 09:18 Differential diagnosis: humeral head fracture, glenoid fracture, DJD, chronic back yudy pain, Fracture. Differential diagnosis: closed head injury, contusion, fracture, multiple trauma, sprain, strain. Data reviewed: vital signs, nurses notes, lab test result(s), EKG, radiologic studies, CT scan, plain films. Data interpreted: court monitor: rate is 80 beats/min, rhythm is regular, Pulse oximetry: on room air is 97 %. Test interpretation: by ED physician or midlevel provider: ECG, plain radiologic studies. Counseling: I had a detailed discussion with the patient and/or guardian regarding: the historical points, exam findings, and any diagnostic results supporting the discharge/admit diagnosis, lab results, radiology results. 08/16 09:15 Order name: CBC with Diff [facility] 08/16 09:15 Order name: Comprehensive Metabolic Panel [facility] 08/16 09:16 Order name: CBC with Automated Diff; Complete Time: 10:20 [facility] 08/16 09:16 Order name: Comprehensive Metabolic Panel; Complete Time: 10:20 [facility] 08/16 09:15 Order name: CT Traumagram (Head C Spine CAP wo con); Complete Time: 10:20 [facility] 08/16 09:15 Order name: Shoulder Left (2 View) XRAY; Complete Time: 10:20 [facility] 08/16 10:24 Order name: INCENTIVE SPIROMETRY [facility] Administered Medications: 10:05 Drug: morphine 2 mg Route: IVP; Site: right antecubital; jd3 11:00 Follow up: Response: No adverse reaction; RASS: Alert and Calm (0) jd3 10:05 Drug: Zofran (Ondansetron) 4 mg Route: IVP; Site: right antecubital; jd3 11:00 Follow up: Response: No adverse reaction jd3 10:06 Drug: NS 0.9% 500 ml Route: IV; Rate: bolus; Site: right antecubital; jd3 11:00 Follow up: Response: No adverse reaction; IV Status: Completed infusion; IV Intake: jd3 500ml 11:32 Drug: Losartan 100 mg Route: PO; jd3 1133 Follow up: Response: Medication administered at discharge. jd3 :33 Drug: Atenolol 25 mg Route: PO; jd3 11:33 Follow up: Response: Medication administered at discharge. jd3 Disposition: 08/16/20 10:29 Discharged to Home. Impression: Fall due to bumping against object, Multiple fractures of ribs, right side. - Condition is Stable. - Discharge Instructions: Fall Prevention in the Home, Rib Fracture, Incentive Spirometer, Fall Prevention in the Home, [id number], Rib Fracture, [id number], Managing Your Hypertension. - Prescriptions for Tylenol- Codeine #3 300-30 mg Oral Tablet - take 1 tablet by ORAL route every 4 hours As needed; 26 tablet. Motrin IB 200 mg Oral Tablet - take 1 tablet by ORAL route every 6 hours As needed as needed with food; 20 tablet. - Medication Reconciliation Form, Thank You Letter, Antibiotic Education, Prescription Opioid Use form. - Follow up: Hector Garnett DO; When: 2 - 3 days; Reason: Recheck today's complaints, Re-evaluation by your physician. Follow up: Felix Snowden MD; When: 2 - 3 days; Reason: Recheck today's complaints, Re-evaluation by your physician. - Problem is new. - Symptoms have improved. Signatures: Dispatcher [employer] Butch Davis MD MD cha Davies, Jonathon RN RN Jhonathan Amanda RN RN ll1 Corrections: (The following items were deleted from the chart) 09:16 09:16 CBC with Automated Diff ordered. EDMS EDMS 09:16 09:16 Comprehensive Metabolic Panel ordered. EDMS EDMS 11:36 10:29 08/16/2020 10:29 Discharged to Home. Impression: Fall due to bumping against jd3 object; Multiple fractures of ribs, right side. Condition is Stable. Forms are Medication Reconciliation Form, Thank You Letter, Antibiotic Education, Prescription Opioid Use. Follow up: Hector Garnett; When: 2 - 3 days; Reason: Recheck today's complaints, Re-evaluation by your physician. Follow up: Felix Snowden; When: 2 - 3 days; Reason: Recheck today's complaints, Re-evaluation by your physician. Problem is new. Symptoms have improved. yudy
--- NOTE | 2020-08-16 10:30 | ER ---
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 L shoulder pain ll1 since. No head injury or LOC, no blood thinners. Coronavirus screen: Client denies travel out of the [place] in the last 14 days. At this time, the client does not indicate any symptoms associated with coronavirus-19. Ebola Screen: Patient denies travel to an Ebola-affected area in the 21 days before illness onset. Initial Sepsis Screen: Does the patient meet any 2 criteria? No. Patient's initial sepsis screen is negative. Does the patient have a suspected source of infection? Yes: Bone or joint infection. Risk Assessment: Do you want to hurt yourself or someone else? Patient reports no desire to harm self or others. Onset of symptoms was August 16, 2020. 09:11 Method Of Arrival: Wheelchair ll1 09:11 Acuity: BERNARD 3 ll1 Historical: - Allergies: 09:13 No Known Allergies; ll1 - PMHx: 09:13 Hyperlipidemia; Hypertension; Hypothyroidism; ll1 - PSHx: 09:13 Hysterectomy; ll1 - Immunization history:: Client reports receiving the 2nd dose of the Covid vaccine, Flu vaccine is up to date. - Social history:: Smoking status: Patient denies any tobacco usage or history of. Screenin:14 Abuse screen: Denies threats or abuse. Nutritional screening: No deficits noted. jd3 Tuberculosis screening: No symptoms or risk factors identified. Fall Risk Ambulatory Aid- None/Bed Rest/Nurse Assist (0 pts). Gait- Normal/Bed Rest/Wheelchair (0 pts) Mental Status- Oriented to own ability (0 pts). Total [place] Fall Scale indicates No Risk (0-24 pts). Assessment: 10:00 General: Appears in no apparent distress. uncomfortable, Behavior is calm, cooperative, jd3 appropriate for age. Pain: Complains of pain in left lateral anterior chest and left shoulder Quality of pain is described as aching, tender. Neuro: Level of Consciousness is awake, alert, obeys commands, Oriented to person, place, time, situation. Cardiovascular: Capillary refill < 3 seconds Patient's skin is warm and dry. Respiratory: Reports pain with respiration Airway is patent Respiratory effort is even, unlabored, Respiratory pattern is regular, symmetrical. GI: No signs and/or symptoms were reported involving the gastrointestinal system. : No signs and/or symptoms were reported regarding the genitourinary system. EENT: No signs and/or symptoms were reported regarding the EENT system. Derm: Skin is intact, Skin is dry, Skin is normal, Skin temperature is warm. Musculoskeletal: Circulation, motion, and sensation intact. Range of motion: intact in all extremities. 11:12 Reassessment: Patient appears in no apparent distress at this time. Patient and/or jd3 family updated on plan of care and expected duration. Pain level reassessed. Patient is alert, oriented x 3, equal unlabored respirations, skin warm/dry/pink. discharge pending medications from pharmacy. Vital Signs: 09:11 BP 212 / 83; Pulse 80; Resp 17; Temp 98.3; Pulse Ox 97% ; Weight 77.11 kg; Height 5 ft. ll1 8 in. (172.72 cm); Pain 5/10; 11:10 BP 221 / 90; Pulse 75; Resp 17 S; Pulse Ox 98% on R/A; jd3 09:11 Body Mass Index 25.85 (77.11 kg, 172.72 cm) ll1 ED Course: 08:59 Patient arrived in ED. ds1 09:05 Arm band placed on Patient placed in an exam room, on a stretcher. ll1 09:06 Butch Hess MD is Attending Physician. yudy 09:11 Ian Gonzales PA is PHCP. jr8 09:12 Triage completed. ll1 09:40 CT Traumagram (Head C Spine CAP wo con) In Process Unspecified. EDMS 09:46 Leonides Tyson, RN is Primary Nurse. jd3 09:54 Shoulder Left (2 View) XRAY In Process Unspecified. EDMS 10:00 Patient has correct armband on for positive identification. Bed in low position. Call jd3 light in reach. Side rails up X2. Adult w/ patient. playground monitor on. Pulse ox on. NIBP on. 10:05 Inserted saline lock: 20 gauge in right antecubital area, using aseptic technique. jd3 10:25 Hector Garnett DO is Referral Physician. yudy 10:26 Felix Snowden MD is Referral Physician. yudy 11:14 No provider procedures requiring assistance completed. IV discontinued, intact, jd3 bleeding controlled, No redness/swelling at site. Pressure dressing applied. Administered Medications: 10:05 Drug: morphine 2 mg Route: IVP; Site: right antecubital; jd3 11:00 Follow up: Response: No adverse reaction; RASS: Alert and Calm (0) jd3 10:05 Drug: Zofran (Ondansetron) 4 mg Route: IVP; Site: right antecubital; jd3 11:00 Follow up: Response: No adverse reaction jd3 10:06 Drug: NS 0.9% 500 ml Route: IV; Rate: bolus; Site: right antecubital; jd3 11:00 Follow up: Response: No adverse reaction; IV Status: Completed infusion; IV Intake: jd3 500ml 11:32 Drug: Losartan 100 mg Route: PO; jd3 11:33 Follow up: Response: Medication administered at discharge. jd3 11:33 Drug: Atenolol 25 mg Route: PO; jd3 11:33 Follow up: Response: Medication administered at discharge. jd3 Intake: 11:00 IV: 500ml; Total: 500ml. jd3 Outcome: 10:29 Discharge ordered by . yudy 11:15 Condition: stable jd3 11:15 Discharge instructions given to patient, family, Instructed on discharge instructions, follow up and referral plans. medication usage, Demonstrated understanding of instructions, follow-up care, medications, Prescriptions given X 2. 11:32 Discharged to home via wheelchair, with family. jd3 11:36 Patient left the ED. jd3 Signatures: Dispatcher [employer] EDButch Nascimento MD MD cha Sanford, Demi ds1 Ian Gonzales PA PA jr8 Leonides Tyson RN RN jd3 Jhonathan Pierre RN RN ll1 Corrections: (The following items were deleted from the chart) 11:12 11:12 Reassessment: discharge pending medications from pharmacy jd3 jd3
[2020-08-16] MEDS ORDERED: atenoloL 25 MG TAB PO ONE (12:00)
[2020-08-16] MEDS ORDERED: LOSARTAN POTASSIUM 50 MG TABLET PO ONE (12:00)
== END 2020-08-16 11:36 | disposition home or self-care (01) ==
LOC: ER 08:54
DX: S22.41XA Multiple fractures of ribs, right side, initial encounter for closed fracture (principal); M54.5 Low back pain; M54.6 Pain in thoracic spine; W08.XXXA Fall from other furniture, initial encounter; E78.5 Hyperlipidemia, unspecified; E03.9 Hypothyroidism, unspecified; I10 Essential (primary) hypertension
CPT/HCPCS: 96361; 85025; 36415; 80053; 70450; 71250; 72125; 73030; 96375; 96374; 99284; J2270; J7040; J2405

== ENCOUNTER 2022-03-05 10:24 | Emergency (ER) | payer OTHER ==
--- OUTSIDE RECORDS SUMMARY | 2022-03-05 10:29 | XMS REPORT | Continuity of Care Document ---
:1940 Author Organization [facility] t Address [address] [place] [address] Care Team Providers Name Role Phone PCP, PATIENT DOES NOT HAVE A Primary Care Physician Unavaila EPHRAIM Bass Attending Clinician Unavailable Hector Garnett Attending Clinician Unavailable Ephraim Wilkins MD Attending Clinician Portillo Carter MD Attending Clinician Doctor Unassigned, [place] Attending Clinician Unavailable PORTILLO CARTER Attending Clinician Unavailable Fabrice Cobian MD Attending Clinician Miller_S_AH Attending Clinician Unavailable Teodoro-Mbayo_A_AH Attending Clinician Unavailable IVAN CHRISTINE Attending Clinician Unavailable EPHRAIM WILKINS Admitting Clinician Unavailable Miller_S_AH Admitting Clinician Unavailable Teodoro-Mbayo_A_AH Admitting Clinician Unavailable Payers Payer Name Policy Type Policy Number Effective Date Expiration Date S leti [facility] [id number] 2021 HMO 00:00:00 [facility] C1 [id number] [facility] C1 [id number] [facility] C1 [id number] [facility] C1 [id number] [facility] - [id number] 2019 2020 [employer] 00:00:00 00:00:00 (MEDICARE REPLACEMENT/ADVAN TAGE - HMO) DEVOTED HEALTH DRG9AY 2020 (MEDICARE 00:00:00 REPLACEMENT HMO) Problems Condition Condition Condition Status Onset Resolution Last Treating Co mments Source Name Details Category Date Date Treatment Clinician Date PAD PAD Disease Active 2021-03 Overview: Univer s (periphera (periphera 04-17 Formattin ity of l artery l artery 00:00: g of this [place] as disease) disease) 00 note Medica l might be Branch different from the original. Added automatic ally from request for surgery [id number] Abnormal Abnormal Disease Active 2021-03 Overview: Un neil ultrasound ultrasound 04-17 Formattin ity of of lower of lower 00:00: g of this [place] as extremity extremity 00 note Medi tana might be Branch different from the original. Added automatic ally from request for surgery [id number] Abnormal Abnormal Disease Active 2021-03 Overview: Un neil ankle ankle 04-17 Formattin ity of brachial brachial 00:00: g of this [place] as index index 00 note Medical ([place]) ([place]) might be Branch different from the original. Added automatic ally from request for surgery [id number] Varicose Varicose Disease Active 2020-03 [place] veins of veins of 0-27 Health left lower left lower 00:00: extremity extremity 00 with pain with pain Hypothyroi Hypothyroi Problem Active V ill[place] dism dism 5-12 Family 00:00: Practic 00 e Chronic Chronic Problem Active [place] back pain Back Pain 5-12 Fami ly 00:00: Practic 00 e Hyperlipid Hyperlipid Problem Active V illage emia emia 5-11 Family 00:00: Practic 00 e No known No known Disease Unive rs active active ity of problems problems [facility] [id number] +5th digit Problem Co mmon eff Spirit 12/20/19*Ch - [facility]I ronic kidney 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 [facility], Medical lumbar Center region [id number] Peripheral Problem Com mon polyneurop Spirit athy [facility] [id number] History of Problem Co mmon cerebral Spirit hemorrhage - [facility] [id number] Acquired Problem Comm on hypothyroi Spirit dism [facility] Essential Benign Problem Common hypertensi essential Spi rit on HTN - [facility] [id number] At high Problem Comm on [id number] risk for Spirit falls - [facility] [id number] Mixed Problem Common hyperlipid Spirit emia [facility] [id number] Other Problem Common chronic Spirit pain - [facility] [id number] Stage 3a Problem Comm on chronic Spirit kidney - CHI disease [facility] [id number] Peripheral Problem Co mmon vascular [facility]ffic[facility] [id number] 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 disease, Medical stage 3 Center (moderate) [id number] Scoliosis, Problem Co mmon unspecifie Spirit d - [facility] scoliosis [facility] unspecifie Medica l d spinal Center region [id number] Cardiac Problem Common murmur [facility] Allergies, Adverse Reactions, Alerts Allergy Allergy Status Severity Reaction(s) Onset Inactive Treating Comm ents Source Name Type Date Date Clinician NO KNOWN Drug Active Univers ALLERGIE Class ity of S [facility] Social History Social Habit Start Date Stop Date Quantity Comments Source History of [facility] - Tobacco Use [facility] Sex Assigned At [facility] terrie - [facility] Exposure to 2022-01-25 2022-02-04 Not sure [facility] SARS-CoV-2 00:00:00 13:45:00 [place] Medical (event) Branch Alcohol intake 2022-02-04 2022-02-04 Current University of 00:00:00 00:00:00 non-drinker of [facility] alcohol (finding) Branch Tobacco use and 2021-10-15 2021-10-15 Smokeless tobacco Un iversity of exposure 00:00:00 00:00:00 non-user [facility] Smoking Status Start Date Stop Date Source Ex-smoker 2021-10-15 00:00:00 2021-10-15 00:00:00 [facility] [place] Never smoked tobacco [facility] Medications Ordered Filled Start Stop Current Ordering Indication Dosage Frequency Signature Comments Components Source Medication Medication Date Date Medication? Clinician (SIG) Name Name losartan Yes 100mg Take 100 Univ ers 100 mg 7-28 mg by ity of tablet 09:40: mouth in [place] [address] the Medical morning. Branch pravastatin 2021-0 Yes 80mg Take 80 mg Univers 80 mg 7-28 by mouth ity of tablet 09:40: at [place] [address] bedtime. Medical Branch indapamide 2021-0 Yes 2.5mg Take 2.5 Un neil 2.5 mg 7-28 mg by ity of tablet 09:40: mouth [place] [address] every Medical morning. Branch atenoloL 2021-0 Yes 100mg Take 100 Univ ers 100 mg 7-28 mg by ity of tablet 09:40: mouth in [place] [address] the Medical morning. Branch losartan 2021-0 Yes 100mg Take 100 Univ ers 100 mg 7-28 mg by ity of tablet 09:40: mouth in [place] [address] the Medical morning. Branch pravastatin 2021-0 Yes 80mg Take 80 mg Univers 80 mg 7-28 by mouth ity of tablet 09:40: at [place] [address] bedtime. Medical Branch indapamide 2021-0 Yes 2.5mg Take 2.5 Un neil 2.5 mg 7-28 mg by ity of tablet 09:40: mouth [place] [address] every Medical morning. Branch atenoloL 2021-0 Yes 100mg Take 100 Univ ers 100 mg 7-28 mg by ity of tablet 09:40: mouth in [place] [address] the Medical morning. Branch losartan 2021-0 Yes 100mg Take 100 Univ ers 100 mg 7-28 mg by ity of tablet 09:40: mouth in [place] [address] the Medical morning. Branch pravastatin 2021-0 Yes 80mg Take 80 mg Univers 80 mg 7-28 by mouth ity of tablet 09:40: at [place] [address] bedtime. Medical Branch indapamide 2021-0 Yes 2.5mg Take 2.5 Un neil 2.5 mg 7-28 mg by ity of tablet 09:40: mouth [place] [address] every Medical morning. Branch atenoloL 2022-0 Yes 100mg Take 100 Univ ers 100 mg 7-28 mg by ity of tablet 09:40: mouth in [place] [address] the Medical morning. Branch losartan 2022-0 Yes 100mg Take 100 Univ ers 100 mg 7-28 mg by ity of tablet 09:40: mouth in [place] [address] the Medical morning. Branch pravastatin 2-0 Yes 80mg Take 80 mg Univers 80 mg 7-28 by mouth ity of tablet 09:40: at [place] [address] bedtime. Medical Branch indapamide 2022-0 Yes 2.5mg Take 2.5 Un neil 2.5 mg 7-28 mg by ity of tablet 09:40: mouth [place] [address] every Medical morning. Branch atenoloL 2022-0 Yes 100mg Take 100 Univ ers 100 mg 7-28 mg by ity of tablet 09:40: mouth in [place] [address] the Medical morning. Branch losartan 2-0 Yes 100mg Take 100 Univ ers 100 mg 7-28 mg by ity of tablet 09:40: mouth in [place] [address] the Medical morning. Branch pravastatin 2-0 Yes 80mg Take 80 mg Univers 80 mg 7-28 by mouth ity of tablet 09:40: at [place] [address] bedtime. Medical Branch indapamide 2-0 Yes 2.5mg Take 2.5 Un neil 2.5 mg 7-28 mg by ity of tablet 09:40: mouth [place] [address] every Medical morning. Branch atenoloL 2-0 Yes 100mg Take 100 Univ ers 100 mg 7-28 mg by ity of tablet 09:40: mouth in [place] [address] the Medical morning. Branch losartan 2-0 Yes 100mg Take 100 Univ ers 100 mg 7-28 mg by ity of tablet 09:40: mouth in [place] [address] the Medical morning. Branch pravastatin 2022-0 Yes 80mg Take 80 mg Univers 80 mg 7-28 by mouth ity of tablet 09:40: at [place] [address] bedtime. Medical Branch indapamide 2022-0 Yes 2.5mg Take 2.5 Un neil 2.5 mg 7-28 mg by ity of tablet 09:40: mouth [place] [address] every Medical morning. Branch atenoloL 2022-0 Yes 100mg Take 100 Univ ers 100 mg 7-28 mg by ity of tablet 09:40: mouth in [place] [address] the Medical morning. Branch Gabapentin Gabapentin No 1{capsu QD Gabapentin 300 MG 300 MG 04-21 le} 300 MG 00:00: 00 Gabapentin Gabapentin No 1{capsu QD Gabapentin 300 MG 300 MG 04-21 le} 300 MG 00:00: 00 Gabapentin Gabapentin No 1{capsu QD Gabapentin 300 MG 300 MG 04-21 le} 300 MG 00:00: 00 Potassium 2020-03 Yes 1 (one) UT 99 MG 03-21 time each Health tablet 12:22: day at the 50 same time. pravastatin 2020-03 Yes 1 tablet UT (Pravachol) 03-21 Health 80 MG 12:22: tablet 50 Magnesium 2020-03 Yes Take by UT 500 MG 03-21 mouth. Health tablet 12:22: 50 omega-3 2020-03 Yes 1 (one) UT (Fish Oil) 03-21 time each Heal th 1200 MG 12:22: day at the capsule 50 same time. atenolol 2020-03 Yes atenolol UT (Tenormin) 03-21 100 mg Health 100 MG 12:22: tablet tablet 49 Calcium 280 2020-03 Yes 1 tablet UT MG tablet 03-21 with a Health 12:22: meal 49 cyanocobala 2020-03 Yes 1000ug Take 1,000 UT min 03-21 mcg by Health (Vitamin 12:22: mouth. B-12) 1000 49 MCG tablet folic acid 2020-03 Yes 1 tablet UT (Folvite) 03-21 Health 400 MCG 12:22: tablet 49 levothyroxi 2020-03 Yes 1{capsu QD 1 capsule UT ne 03-21 le} 1 (one) Health (Tirosint) 12:22: time each 112 MCG 49 day. capsule losartan 2020-03 Yes losartan UT (Cozaar) 03-21 100 mg Health 100 MG 12:22: tablet tablet 49 aspirin 2020-03 Yes 1 tablet UT (ASPIR) 81 03-21 Health MG EC 12:22: tablet 48 Ascorbic 2020-03 Yes 1 tablet UT Acid 03-21 Health (vitamin C) 12:22: 1000 MG 48 tablet Levothyroxi Levothyroxi Yes Hector 1 tablet Common ne Sodium ne Sodium 3-30 [place] in the Sp terrie 00:00: morning on [facility] an empty [facility] Levothyroxi Levothyroxi 2020-0 No QD Levothyrox ne Sodium ne Sodium 3-30 ine Sodium 150 MCG 150 MCG 00:00: 150 MCG 00 Levothyroxi Levothyroxi 2020-0 No QD Levothyrox ne Sodium ne Sodium 3-30 ine Sodium 150 MCG 150 MCG 00:00: 150 MCG 00 Levothyroxi Levothyroxi 2019-0 No QD Levothyrox ne Sodium ne Sodium 3-30 ine Sodium 150 MCG 150 MCG 00:00: 150 MCG 00 Levothyroxi Levothyroxi 2019-0 No QD Levothyrox ne Sodium ne Sodium 3-30 ine Sodium 150 MCG 150 MCG 00:00: 150 MCG 00 Levothyroxi Levothyroxi 2019-0 No QD Levothyrox ne Sodium ne Sodium 3-30 ine Sodium 150 MCG 150 MCG 00:00: 150 MCG 00 Levothyroxi Levothyroxi 2019-0 No QD Levothyrox ne Sodium ne Sodium 3-30 ine Sodium 150 MCG 150 MCG 00:00: 150 MCG 00 Levothyroxi Levothyroxi 2019-0 No QD Levothyrox ne Sodium ne Sodium 3-30 ine Sodium 150 MCG 150 MCG 00:00: 150 MCG 00 Levothyroxi Levothyroxi 2019-0 No QD Levothyrox ne Sodium ne Sodium 3-30 ine Sodium 150 MCG 150 MCG 00:00: 150 MCG 00 Levothyroxi Levothyroxi 2019-0 No QD Levothyrox ne Sodium ne Sodium 3-30 ine Sodium 150 MCG 150 MCG 00:00: 150 MCG 00 Levothyroxi Levothyroxi 2019-0 No QD Levothyrox ne Sodium ne Sodium 3-30 ine Sodium 150 MCG 150 MCG 00:00: 150 MCG 00 Levothyroxi Levothyroxi 2019-0 No QD Levothyrox ne Sodium ne Sodium 3-30 ine Sodium 150 MCG 150 MCG 00:00: 150 MCG 00 Levothyroxi Levothyroxi 2019-0 No QD Levothyrox ne Sodium ne Sodium 3-30 ine Sodium 150 MCG 150 MCG 00:00: 150 MCG 00 Levothyroxi Levothyroxi 2019-0 No QD Levothyrox ne Sodium ne Sodium 3-30 ine Sodium 150 MCG 150 MCG 00:00: 150 MCG 00 flu vaccine 0 Yes ADM 0.5ML U nivers 63 yrs and 9-22 IM UTD ity of up 180mcg/ 00:00: [place] 0.5 mL 00 Medical Branch flu vaccine Yes ADM 0.5ML U nivers 63 yrs and 9-22 IM UTD ity of up 180mcg/ 00:00: [place] 0.5 mL 00 Medical Branch flu vaccine Yes ADM 0.5ML U nivers 63 yrs and 9-22 IM UTD ity of up 180mcg/ 00:00: [place] 0.5 mL 00 Medical Branch flu vaccine Yes ADM 0.5ML U nivers 63 yrs and 9-22 IM UTD ity of up 180mcg/ 00:00: [place] 0.5 mL 00 Medical Branch flu vaccine Yes ADM 0.5ML U nivers 63 yrs and 9-22 IM UTD ity of up 180mcg/ 00:00: [place] 0.5 mL 00 Medical Branch flu vaccine Yes ADM 0.5ML U nivers 63 yrs and 9-22 IM UTD ity of up 180mcg/ 00:00: [place] 0.5 mL 00 [facility] Branch Fish Oil Fish Oil Yes Hector 1 capsule Common [place] [facility] Vitamin C Vitamin C Yes Hector 1 tablet Common Garn[place] [facility] Atenolol Atenolol Yes Hector 1 tablet C ommon [facility] Diclofenac Diclofenac Yes [facility] Vitamin B12 Vitamin B12 Yes Hector 1 tablet Common [facility] Vitamin E Vitamin E Yes Hector 1 capsule Common [place] [facility] Calcium Calcium Yes Hector 1 tablet Com mon Garnett with a [facility] Magnesium Magnesium Yes Hector 1 tablet Common [place] with a [facility] meal [facility] Potassium Potassium Yes Hector 1 tablet Common Garn[place] [facility] Indapamide Indapamide Yes Hector 1 tablet Common [place] in the [facility] morning [facility] Losartan Losartan Yes Hector TAKE 1 Com mon Potassium Potassium Garnett TABLET Sp terrie ONCE DAILY [facility] Folic Acid Folic Acid Yes Hector 1 tablet Common Garn[place] [facility] Biotin Biotin Yes Hector 1 capsule Comm on [place] [facility] Aspir-81 Aspir-81 Yes Hector 1 tablet C ommon [place] [facility] Levothyroxi Levothyroxi Yes Hector 1 tablet Common ne Sodium ne Sodium [place] on an Spi rit empty - CHI stomach in [facility] Pravastatin Pravastatin Yes Hector 1 tablet Common Sodium Sodium [place] [facility] Vitamin C Vitamin C No 1{table QD Vitamin C 1000 MG 1000 MG t} 1000 MG Diclofenac Diclofenac No Diclofenac Losartan Losartan No Losartan Potassium Potassium Potassium 100 MG 100 MG 100 MG Tumersaid Tumersaid No Tumersaid Fish Oil Fish Oil No 1{capsu QD Fish Oil 1200 MG 1200 MG le} 1200 MG Indapamide Indapamide No 1{table QD Indapamide 2.5 MG 2.5 MG t_in_th 2.5 MG e_morni ng} Diclofenac Diclofenac No Diclofenac Levothyroxi Levothyroxi No QD Levothyrox ne Sodium ne Sodium ine Sodium 75 MCG 75 MCG 75 MCG Biotin 5 MG Biotin 5 MG No 1{capsu QD Biotin 5 le} MG Vitamin E Vitamin E No 1{capsu QD Vitamin E 400 UNIT 400 UNIT le} 400 UNIT Pravastatin Pravastatin No 1{table QD Pravastati Sodium 80 Sodium 80 t} n Sodium MG MG 80 MG Vitamin C Vitamin C No 1{table QD Vitamin C 1000 MG 1000 MG t} 1000 MG Vitamin B12 Vitamin B12 No 1{table QD Vitamin 1000 MCG 1000 MCG t} B12 1000 MCG Potassium Potassium No 1{table QD Potassium 99 MG 99 MG t} 99 MG Losartan Losartan No 1{table QD Losartan Potassium Potassium t} Potassium 100 MG 100 MG 100 MG Aspir-81 81 Aspir-81 81 No 1{table QD Aspir-81 MG MG t} 81 MG Atenolol Atenolol No 1{table QD Atenolol 100 MG 100 MG t} 100 MG Tumersaid Tumersaid No Tumersaid Atenolol Atenolol No Atenolol 100 MG 100 MG 100 MG Magnesium Magnesium No 1{table QD Magnesium 500 MG 500 MG t_with_ 500 MG a_meal} Pravastatin Pravastatin No 1{table QD Pravastati Sodium 80 Sodium 80 t} n Sodium MG MG 80 MG Losartan Losartan No Losartan Potassium Potassium Potassium 100 MG 100 MG 100 MG Folic Acid Folic Acid No 1{table QD Folic Acid 400 MCG 400 MCG t} 400 MCG Calcium Calcium No 1{table QD Calcium 5324-9344 8333-6533 t_with_ 3520-0451 MG-UNIT MG-UNIT a_meal} MG-UNIT Fish Oil Fish Oil No 1{capsu QD Fish Oil 1200 MG 1200 MG le} 1200 MG Indapamide Indapamide No 1{table QD Indapamide 2.5 MG 2.5 MG t_in_th 2.5 MG e_morni ng} Diclofenac Diclofenac No Diclofenac Levothyroxi Levothyroxi No QD Levothyrox ne Sodium ne Sodium ine Sodium 75 MCG 75 MCG 75 MCG Biotin 5 MG Biotin 5 MG No 1{capsu QD Biotin 5 le} MG Vitamin E Vitamin E No 1{capsu QD Vitamin E 400 UNIT 400 UNIT le} 400 UNIT Pravastatin Pravastatin No 1{table QD Pravastati Sodium 80 Sodium 80 t} n Sodium MG MG 80 MG Vitamin C Vitamin C No 1{table QD Vitamin C 1000 MG 1000 MG t} 1000 MG Vitamin B12 Vitamin B12 No 1{table QD Vitamin 1000 MCG 1000 MCG t} B12 1000 MCG Potassium Potassium No 1{table QD Potassium 99 MG 99 MG t} 99 MG Losartan Losartan No 1{table QD Losartan Potassium Potassium t} Potassium 100 MG 100 MG 100 MG Aspir-81 81 Aspir-81 81 No 1{table QD Aspir-81 MG MG t} 81 MG Atenolol Atenolol No 1{table QD Atenolol 100 MG 100 MG t} 100 MG Tumersaid Tumersaid No Tumersaid Atenolol Atenolol No Atenolol 100 MG 100 MG 100 MG Magnesium Magnesium No 1{table QD Magnesium 500 MG 500 MG t_with_ 500 MG a_meal} Pravastatin Pravastatin No 1{table QD Pravastati Sodium 80 Sodium 80 t} n Sodium MG MG 80 MG Losartan Losartan No Losartan Potassium Potassium Potassium 100 MG 100 MG 100 MG Folic Acid Folic Acid No 1{table QD Folic Acid 400 MCG 400 MCG t} 400 MCG Calcium Calcium No 1{table QD Calcium 8191-4532 5687-7378 t_with_ 5894-5497 MG-UNIT MG-UNIT a_meal} MG-UNIT Fish Oil Fish Oil No 1{capsu QD Fish Oil 1200 MG 1200 MG le} 1200 MG Calcium Calcium No 1{table QD Calcium 2115-4267 6692-4283 t_with_ 4599-5579 MG-UNIT MG-UNIT a_meal} MG-UNIT Diclofenac Diclofenac No Diclofenac Biotin 5 MG Biotin 5 MG No 1{capsu QD Biotin 5 le} MG Potassium Potassium No 1{table QD Potassium 99 MG 99 MG t} 99 MG Tumersaid Tumersaid No Tumersaid Losartan Losartan No Losartan Potassium Potassium Potassium 100 MG 100 MG 100 MG Levothyroxi Levothyroxi No Levothyrox ne Sodium ne Sodium ine Sodium 75 MCG 75 MCG 75 MCG Pravastatin Pravastatin No Pravastati Sodium 80 Sodium 80 n Sodium MG MG 80 MG Atenolol Atenolol No Atenolol 100 MG 100 MG 100 MG Folic Acid Folic Acid No 1{table QD Folic Acid 400 MCG 400 MCG t} 400 MCG Vitamin C Vitamin C No 1{table QD Vitamin C 1000 MG 1000 MG t} 1000 MG Magnesium Magnesium No 1{table QD Magnesium 500 MG 500 MG t_with_ 500 MG a_meal} Vitamin E Vitamin E No 1{capsu QD Vitamin E 400 UNIT 400 UNIT le} 400 UNIT Aspir-81 81 Aspir-81 81 No 1{table QD Aspir-81 MG MG t} 81 MG Indapamide Indapamide No Indapamide 2.5 MG 2.5 MG 2.5 MG Vitamin B12 Vitamin B12 No 1{table QD Vitamin 1000 MCG 1000 MCG t} B12 1000 MCG Atenolol Atenolol No 1{table QD Atenolol 100 MG 100 MG t} 100 MG Losartan Losartan No 1{table QD Losartan Potassium Potassium t} Potassium 100 MG 100 MG 100 MG Biotin 5 MG Biotin 5 MG No 1{capsu QD Biotin 5 le} MG Folic Acid Folic Acid No 1{table QD Folic Acid 400 MCG 400 MCG t} 400 MCG Vitamin E Vitamin E No 1{capsu QD Vitamin E 400 UNIT 400 UNIT le} 400 UNIT Atenolol Atenolol No Atenolol 100 MG 100 MG 100 MG Magnesium Magnesium No 1{table QD Magnesium 500 MG 500 MG t_with_ 500 MG a_meal} Potassium Potassium No 1{table QD Potassium 99 MG 99 MG t} 99 MG Losartan Losartan No Losartan Potassium Potassium Potassium 100 MG 100 MG 100 MG Indapamide Indapamide No 1{table QD Indapamide 2.5 MG 2.5 MG t_in_th 2.5 MG e_morni ng} Fish Oil Fish Oil No 1{capsu QD Fish Oil 1200 MG 1200 MG le} 1200 MG Calcium Calcium No 1{table QD Calcium 8460-1929 5376-4457 t_with_ 5982-2190 MG-UNIT MG-UNIT a_meal} MG-UNIT Tumersaid Tumersaid No Tumersaid Diclofenac Diclofenac No Diclofenac Vitamin C Vitamin C No 1{table QD Vitamin C 1000 MG 1000 MG t} 1000 MG Levothyroxi Levothyroxi No QD Levothyrox ne Sodium ne Sodium ine Sodium 75 MCG 75 MCG 75 MCG Vitamin B12 Vitamin B12 No 1{table QD Vitamin 1000 MCG 1000 MCG t} B12 1000 MCG Pravastatin Pravastatin No 1{table QD Pravastati Sodium 80 Sodium 80 t} n Sodium MG MG 80 MG Pravastatin Pravastatin No Pravastati Sodium 80 Sodium 80 n Sodium MG MG 80 MG Levothyroxi Levothyroxi No Levothyrox ne Sodium ne Sodium ine Sodium 75 MCG 75 MCG 75 MCG Atenolol Atenolol No 1{table QD Atenolol 100 MG 100 MG t} 100 MG Indapamide Indapamide No Indapamide 2.5 MG 2.5 MG 2.5 MG Aspir-81 81 Aspir-81 81 No 1{table QD Aspir-81 MG MG t} 81 MG Magnesium Magnesium No 1{table QD Magnesium 500 MG 500 MG t_with_ 500 MG a_meal} Biotin 5 MG Biotin 5 MG No 1{capsu QD Biotin 5 le} MG Losartan Losartan No 1{table QD Losartan Potassium Potassium t} Potassium 100 MG 100 MG 100 MG Folic Acid Folic Acid No 1{table QD Folic Acid 400 MCG 400 MCG t} 400 MCG Levothyroxi Levothyroxi No QD Levothyrox ne Sodium ne Sodium ine Sodium 75 MCG 75 MCG 75 MCG Atenolol Atenolol No Atenolol 100 MG 100 MG 100 MG Vitamin E Vitamin E No 1{capsu QD Vitamin E 400 UNIT 400 UNIT le} 400 UNIT Potassium Potassium No 1{table QD Potassium 99 MG 99 MG t} 99 MG Losartan Losartan No Losartan Potassium Potassium Potassium 100 MG 100 MG 100 MG Indapamide Indapamide No 1{table QD Indapamide 2.5 MG 2.5 MG t_in_th 2.5 MG e_morni ng} Fish Oil Fish Oil No 1{capsu QD Fish Oil 1200 MG 1200 MG le} 1200 MG Calcium Calcium No 1{table QD Calcium 9070-4327 8076-6489 t_with_ 6889-8439 MG-UNIT MG-UNIT a_meal} MG-UNIT Tumersaid Tumersaid No Tumersaid Diclofenac Diclofenac No Diclofenac Vitamin C Vitamin C No 1{table QD Vitamin C 1000 MG 1000 MG t} 1000 MG Aspir-81 81 Aspir-81 81 No 1{table QD Aspir-81 MG MG t} 81 MG Vitamin B12 Vitamin B12 No 1{table QD Vitamin 1000 MCG 1000 MCG t} B12 1000 MCG Pravastatin Pravastatin No 1{table QD Pravastati Sodium 80 Sodium 80 t} n Sodium MG MG 80 MG Pravastatin Pravastatin No Pravastati Sodium 80 Sodium 80 n Sodium MG MG 80 MG Levothyroxi Levothyroxi No Levothyrox ne Sodium ne Sodium ine Sodium 75 MCG 75 MCG 75 MCG Atenolol Atenolol No 1{table QD Atenolol 100 MG 100 MG t} 100 MG Indapamide Indapamide No Indapamide 2.5 MG 2.5 MG 2.5 MG Losartan Losartan No Losartan Potassium Potassium Potassium 100 MG 100 MG 100 MG Indapamide Indapamide No 1{table QD Indapamide 2.5 MG 2.5 MG t_in_th 2.5 MG e_morni ng} Vitamin E Vitamin E No 1{capsu QD Vitamin E 400 UNIT 400 UNIT le} 400 UNIT Biotin 5 MG Biotin 5 MG No 1{capsu QD Biotin 5 le} MG Diclofenac Diclofenac No Diclofenac Pravastatin Pravastatin No Pravastati Sodium 80 Sodium 80 n Sodium MG MG 80 MG Vitamin C Vitamin C No 1{table QD Vitamin C 1000 MG 1000 MG t} 1000 MG Levothyroxi Levothyroxi No Levothyrox ne Sodium ne Sodium ine Sodium 75 MCG 75 MCG 75 MCG Fish Oil Fish Oil No 1{capsu QD Fish Oil 1200 MG 1200 MG le} 1200 MG Potassium Potassium No 1{table QD Potassium 99 MG 99 MG t} 99 MG Calcium Calcium No 1{table QD Calcium 2139-9431 2777-1869 t_with_ 2410-3256 MG-UNIT MG-UNIT a_meal} MG-UNIT Aspir-81 81 Aspir-81 81 No 1{table QD Aspir-81 MG MG t} 81 MG Tumersaid Tumersaid No Tumersaid Indapamide Indapamide No Indapamide 2.5 MG 2.5 MG 2.5 MG Losartan Losartan No 1{table QD Losartan Potassium Potassium t} Potassium 100 MG 100 MG 100 MG Folic Acid Folic Acid No 1{table QD Folic Acid 400 MCG 400 MCG t} 400 MCG Atenolol Atenolol No Atenolol 100 MG 100 MG 100 MG Levothyroxi Levothyroxi No QD Levothyrox ne Sodium ne Sodium ine Sodium 75 MCG 75 MCG 75 MCG Pravastatin Pravastatin No 1{table QD Pravastati Sodium 80 Sodium 80 t} n Sodium MG MG 80 MG Atenolol Atenolol No 1{table QD Atenolol 100 MG 100 MG t} 100 MG Vitamin B12 Vitamin B12 No 1{table QD Vitamin 1000 MCG 1000 MCG t} B12 1000 MCG Magnesium Magnesium No 1{table QD Magnesium 500 MG 500 MG t_with_ 500 MG a_meal} Tumersaid Tumersaid No Tumersaid Pravastatin Pravastatin No Pravastati Sodium 80 Sodium 80 n Sodium MG MG 80 MG Calcium Calcium No 1{table QD Calcium 2401-9990 0350-0489 t_with_ 2936-9736 MG-UNIT MG-UNIT a_meal} MG-UNIT Magnesium Magnesium No 1{table QD Magnesium 500 MG 500 MG t_with_ 500 MG a_meal} Biotin 5 MG Biotin 5 MG No 1{capsu QD Biotin 5 le} MG Losartan Losartan No 1{table QD Losartan Potassium Potassium t} Potassium 100 MG 100 MG 100 MG Vitamin C Vitamin C No 1{table QD Vitamin C 1000 MG 1000 MG t} 1000 MG Losartan Losartan No Losartan Potassium Potassium Potassium 100 MG 100 MG 100 MG Vitamin B12 Vitamin B12 No 1{table QD Vitamin 1000 MCG 1000 MCG t} B12 1000 MCG Potassium Potassium No 1{table QD Potassium 99 MG 99 MG t} 99 MG Atenolol Atenolol No Atenolol 100 MG 100 MG 100 MG Aspir-81 81 Aspir-81 81 No 1{table QD Aspir-81 MG MG t} 81 MG Levothyroxi Levothyroxi No QD Levothyrox ne Sodium ne Sodium ine Sodium 75 MCG 75 MCG 75 MCG Folic Acid Folic Acid No 1{table QD Folic Acid 400 MCG 400 MCG t} 400 MCG Gabapentin Gabapentin No 1{capsu QD Gabapentin 300 MG 300 MG le} 300 MG Levothyroxi Levothyroxi No Levothyrox ne Sodium ne Sodium ine Sodium 75 MCG 75 MCG 75 MCG Diclofenac Diclofenac No Diclofenac Pravastatin Pravastatin No 1{table QD Pravastati Sodium 80 Sodium 80 t} n Sodium MG MG 80 MG Fish Oil Fish Oil No 1{capsu QD Fish Oil 1200 MG 1200 MG le} 1200 MG Indapamide Indapamide No Indapamide 2.5 MG 2.5 MG 2.5 MG Indapamide Indapamide No 1{table QD Indapamide 2.5 MG 2.5 MG t_in_th 2.5 MG e_morni ng} Vitamin E Vitamin E No 1{capsu QD Vitamin E 400 UNIT 400 UNIT le} 400 UNIT Atenolol Atenolol No 1{table QD Atenolol 100 MG 100 MG t} 100 MG Losartan Losartan No 1{table QD Losartan Potassium Potassium t} Potassium 100 MG 100 MG 100 MG Tumersaid Tumersaid No Tumersaid Losartan Losartan No Losartan Potassium Potassium Potassium 100 MG 100 MG 100 MG Diclofenac Diclofenac No Diclofenac Magnesium Magnesium No 1{table QD Magnesium 500 MG 500 MG t_with_ 500 MG a_meal} Potassium Potassium No 1{table QD Potassium 99 MG 99 MG t} 99 MG Fish Oil Fish Oil No 1{capsu QD Fish Oil 1200 MG 1200 MG le} 1200 MG Atenolol Atenolol No Atenolol 100 MG 100 MG 100 MG Vitamin B12 Vitamin B12 No 1{table QD Vitamin 1000 MCG 1000 MCG t} B12 1000 MCG Pravastatin Pravastatin No Pravastati Sodium 80 Sodium 80 n Sodium MG MG 80 MG Aspir-81 81 Aspir-81 81 No 1{table QD Aspir-81 MG MG t} 81 MG Biotin 5 MG Biotin 5 MG No 1{capsu QD Biotin 5 le} MG Vitamin C Vitamin C No 1{table QD Vitamin C 1000 MG 1000 MG t} 1000 MG Atenolol Atenolol No 1{table QD Atenolol 100 MG 100 MG t} 100 MG Levothyroxi Levothyroxi No Levothyrox ne Sodium ne Sodium ine Sodium 75 MCG 75 MCG 75 MCG Vitamin E Vitamin E No 1{capsu QD Vitamin E 400 UNIT 400 UNIT le} 400 UNIT Gabapentin Gabapentin No 1{capsu QD Gabapentin 300 MG 300 MG le} 300 MG Indapamide Indapamide No Indapamide 2.5 MG 2.5 MG 2.5 MG Folic Acid Folic Acid No 1{table QD Folic Acid 400 MCG 400 MCG t} 400 MCG Calcium Calcium No 1{table QD Calcium 3592-7976 8065-8325 t_with_ 7960-9479 MG-UNIT MG-UNIT a_meal} MG-UNIT Losartan Losartan No 1{table QD Losartan Potassium Potassium t} Potassium 100 MG 100 MG 100 MG Tumersaid Tumersaid No Tumersaid Losartan Losartan No Losartan Potassium Potassium Potassium 100 MG 100 MG 100 MG Diclofenac Diclofenac No Diclofenac Magnesium Magnesium No 1{table QD Magnesium 500 MG 500 MG t_with_ 500 MG a_meal} Potassium Potassium No 1{table QD Potassium 99 MG 99 MG t} 99 MG Fish Oil Fish Oil No 1{capsu QD Fish Oil 1200 MG 1200 MG le} 1200 MG Atenolol Atenolol No Atenolol 100 MG 100 MG 100 MG Vitamin B12 Vitamin B12 No 1{table QD Vitamin 1000 MCG 1000 MCG t} B12 1000 MCG Pravastatin Pravastatin No Pravastati Sodium 80 Sodium 80 n Sodium MG MG 80 MG Aspir-81 81 Aspir-81 81 No 1{table QD Aspir-81 MG MG t} 81 MG Biotin 5 MG Biotin 5 MG No 1{capsu QD Biotin 5 le} MG Vitamin C Vitamin C No 1{table QD Vitamin C 1000 MG 1000 MG t} 1000 MG Atenolol Atenolol No 1{table QD Atenolol 100 MG 100 MG t} 100 MG Levothyroxi Levothyroxi No Levothyrox ne Sodium ne Sodium ine Sodium 75 MCG 75 MCG 75 MCG Vitamin E Vitamin E No 1{capsu QD Vitamin E 400 UNIT 400 UNIT le} 400 UNIT Gabapentin Gabapentin No 1{capsu QD Gabapentin 300 MG 300 MG le} 300 MG Indapamide Indapamide No Indapamide 2.5 MG 2.5 MG 2.5 MG Folic Acid Folic Acid No 1{table QD Folic Acid 400 MCG 400 MCG t} 400 MCG Calcium Calcium No 1{table QD Calcium 2352-1941 4553-3676 t_with_ 2257-4453 MG-UNIT MG-UNIT a_meal} MG-UNIT Tumersaid Tumersaid No Tumersaid Diclofenac Diclofenac No Diclofenac Calcium Calcium No 1{table QD Calcium 4330-1084 6469-5052 t_with_ 2318-2802 MG-UNIT MG-UNIT a_meal} MG-UNIT Gabapentin Gabapentin No 1{capsu QD Gabapentin 300 MG 300 MG le} 300 MG Vitamin E Vitamin E No 1{capsu QD Vitamin E 400 UNIT 400 UNIT le} 400 UNIT Pravastatin Pravastatin No 1{table QD Pravastati Sodium 80 Sodium 80 t} n Sodium MG MG 80 MG Vitamin C Vitamin C No 1{table QD Vitamin C 1000 MG 1000 MG t} 1000 MG Levothyroxi Levothyroxi No QD Levothyrox ne Sodium ne Sodium ine Sodium 75 MCG 75 MCG 75 MCG Fish Oil Fish Oil No 1{capsu QD Fish Oil 1200 MG 1200 MG le} 1200 MG Potassium Potassium No 1{table QD Potassium 99 MG 99 MG t} 99 MG Indapamide Indapamide No 1{table QD Indapamide 2.5 MG 2.5 MG t_in_th 2.5 MG e_morni ng} Folic Acid Folic Acid No 1{table QD Folic Acid 400 MCG 400 MCG t} 400 MCG Indapamide Indapamide No Indapamide 2.5 MG 2.5 MG 2.5 MG Atenolol Atenolol No Atenolol 100 MG 100 MG 100 MG Biotin 5 MG Biotin 5 MG No 1{capsu QD Biotin 5 le} MG Losartan Losartan No 1{table QD Losartan Potassium Potassium t} Potassium 100 MG 100 MG 100 MG Losartan Losartan No Losartan Potassium Potassium Potassium 100 MG 100 MG 100 MG Pravastatin Pravastatin No Pravastati Sodium 80 Sodium 80 n Sodium MG MG 80 MG Aspir-81 81 Aspir-81 81 No 1{table QD Aspir-81 MG MG t} 81 MG Magnesium Magnesium No 1{table QD Magnesium 500 MG 500 MG t_with_ 500 MG a_meal} Atenolol Atenolol No 1{table QD Atenolol 100 MG 100 MG t} 100 MG Vitamin B12 Vitamin B12 No 1{table QD Vitamin 1000 MCG 1000 MCG t} B12 1000 MCG Levothyroxi Levothyroxi No Levothyrox ne Sodium ne Sodium ine Sodium 75 MCG 75 MCG 75 MCG Tumersaid Tumersaid No Tumersaid Diclofenac Diclofenac No Diclofenac Calcium Calcium No 1{table QD Calcium 9833-5967 1166-2190 t_with_ 2652-8617 MG-UNIT MG-UNIT a_meal} MG-UNIT Gabapentin Gabapentin No 1{capsu QD Gabapentin 300 MG 300 MG le} 300 MG Vitamin E Vitamin E No 1{capsu QD Vitamin E 400 UNIT 400 UNIT le} 400 UNIT Pravastatin Pravastatin No 1{table QD Pravastati Sodium 80 Sodium 80 t} n Sodium MG MG 80 MG Vitamin C Vitamin C No 1{table QD Vitamin C 1000 MG 1000 MG t} 1000 MG Levothyroxi Levothyroxi No QD Levothyrox ne Sodium ne Sodium ine Sodium 75 MCG 75 MCG 75 MCG Fish Oil Fish Oil No 1{capsu QD Fish Oil 1200 MG 1200 MG le} 1200 MG Potassium Potassium No 1{table QD Potassium 99 MG 99 MG t} 99 MG Indapamide Indapamide No 1{table QD Indapamide 2.5 MG 2.5 MG t_in_th 2.5 MG e_morni ng} Folic Acid Folic Acid No 1{table QD Folic Acid 400 MCG 400 MCG t} 400 MCG Indapamide Indapamide No Indapamide 2.5 MG 2.5 MG 2.5 MG Atenolol Atenolol No Atenolol 100 MG 100 MG 100 MG Biotin 5 MG Biotin 5 MG No 1{capsu QD Biotin 5 le} MG Losartan Losartan No 1{table QD Losartan Potassium Potassium t} Potassium 100 MG 100 MG 100 MG Losartan Losartan No Losartan Potassium Potassium Potassium 100 MG 100 MG 100 MG Pravastatin Pravastatin No Pravastati Sodium 80 Sodium 80 n Sodium MG MG 80 MG Aspir-81 81 Aspir-81 81 No 1{table QD Aspir-81 MG MG t} 81 MG Magnesium Magnesium No 1{table QD Magnesium 500 MG 500 MG t_with_ 500 MG a_meal} Atenolol Atenolol No 1{table QD Atenolol 100 MG 100 MG t} 100 MG Vitamin B12 Vitamin B12 No 1{table QD Vitamin 1000 MCG 1000 MCG t} B12 1000 MCG Levothyroxi Levothyroxi No Levothyrox ne Sodium ne Sodium ine Sodium 75 MCG 75 MCG 75 MCG Tumersaid Tumersaid No Tumersaid Diclofenac Diclofenac No Diclofenac Calcium Calcium No 1{table QD Calcium 7239-0762 3319-0454 t_with_ 4308-8444 MG-UNIT MG-UNIT a_meal} MG-UNIT Gabapentin Gabapentin No 1{capsu QD Gabapentin 300 MG 300 MG le} 300 MG Vitamin E Vitamin E No 1{capsu QD Vitamin E 400 UNIT 400 UNIT le} 400 UNIT Pravastatin Pravastatin No 1{table QD Pravastati Sodium 80 Sodium 80 t} n Sodium MG MG 80 MG Vitamin C Vitamin C No 1{table QD Vitamin C 1000 MG 1000 MG t} 1000 MG Levothyroxi Levothyroxi No QD Levothyrox ne Sodium ne Sodium ine Sodium 75 MCG 75 MCG 75 MCG Fish Oil Fish Oil No 1{capsu QD Fish Oil 1200 MG 1200 MG le} 1200 MG Potassium Potassium No 1{table QD Potassium 99 MG 99 MG t} 99 MG Indapamide Indapamide No 1{table QD Indapamide 2.5 MG 2.5 MG t_in_th 2.5 MG e_morni ng} Folic Acid Folic Acid No 1{table QD Folic Acid 400 MCG 400 MCG t} 400 MCG Indapamide Indapamide No Indapamide 2.5 MG 2.5 MG 2.5 MG Atenolol Atenolol No Atenolol 100 MG 100 MG 100 MG Biotin 5 MG Biotin 5 MG No 1{capsu QD Biotin 5 le} MG Losartan Losartan No 1{table QD Losartan Potassium Potassium t} Potassium 100 MG 100 MG 100 MG Losartan Losartan No Losartan Potassium Potassium Potassium 100 MG 100 MG 100 MG Pravastatin Pravastatin No Pravastati Sodium 80 Sodium 80 n Sodium MG MG 80 MG Aspir-81 81 Aspir-81 81 No 1{table QD Aspir-81 MG MG t} 81 MG Magnesium Magnesium No 1{table QD Magnesium 500 MG 500 MG t_with_ 500 MG a_meal} Atenolol Atenolol No 1{table QD Atenolol 100 MG 100 MG t} 100 MG Vitamin B12 Vitamin B12 No 1{table QD Vitamin 1000 MCG 1000 MCG t} B12 1000 MCG Levothyroxi Levothyroxi No Levothyrox ne Sodium ne Sodium ine Sodium 75 MCG 75 MCG 75 MCG Calcium Calcium No 1{table QD Calcium 6381-6935 7320-2931 t_with_ 2619-3991 MG-UNIT MG-UNIT a_meal} MG-UNIT Atenolol Atenolol No 1{table QD Atenolol 100 MG 100 MG t} 100 MG Fish Oil Fish Oil No 1{capsu QD Fish Oil 1200 MG 1200 MG le} 1200 MG Folic Acid Folic Acid No 1{table QD Folic Acid 400 MCG 400 MCG t} 400 MCG Indapamide Indapamide No 1{table QD Indapamide 2.5 MG 2.5 MG t_in_th 2.5 MG e_morni ng} Losartan Losartan No 1{table QD Losartan Potassium Potassium t} Potassium 100 MG 100 MG 100 MG Potassium Potassium No 1{table QD Potassium 99 MG 99 MG t} 99 MG Levothyroxi Levothyroxi No QD Levothyrox ne Sodium ne Sodium ine Sodium 75 MCG 75 MCG 75 MCG Aspir-81 81 Aspir-81 81 No 1{table QD Aspir-81 MG MG t} 81 MG Pravastatin Pravastatin No 1{table QD Pravastati Sodium 80 Sodium 80 t} n Sodium MG MG 80 MG indapamide indapamide No 1 Q1D indapamide [facility] 2.5 mg 2.5 mg 2.5 mg Family tablet Take tablet Take tablet Practic 1 tablet 1 tablet Take 1 e every day every day tablet by oral by oral every day route. route. by oral route. Vitamin E Vitamin E No 1{capsu QD Vitamin E 400 UNIT 400 UNIT le} 400 UNIT Biotin 5 MG Biotin 5 MG No 1{capsu QD Biotin 5 le} MG Magnesium Magnesium No 1{table QD Magnesium 500 MG 500 MG t_with_ 500 MG a_meal} Pravastatin Pravastatin No 1{table QD Pravastati Sodium 80 Sodium 80 t} n Sodium MG MG 80 MG Vitamin B12 Vitamin B12 No 1{table QD Vitamin 1000 MCG 1000 MCG t} B12 1000 MCG Atenolol Atenolol No Atenolol 100 MG 100 MG 100 MG levothyroxi levothyroxi No 1capsul Q1D levothyrox [facility] ne 112 mcg ne 112 mcg e(s) [...] route. potassium potassium No 1mg Q1D potassium [facility] gluconate gluconate gluconate [facility] 550 mg (90 550 mg (90 550 mg (90 Practic mg) tablet mg) tablet mg) tablet e Take 1 mg Take 1 mg Take 1 mg every day every day every day by oral by oral by oral route with route with route with meals. meals. meals. pravastatin pravastatin No 1 Q1D pravastati [facility] 40 mg 40 mg n 40 mg [...] route. ibuprofen ibuprofen No 1 Q6H ibuprofen [facility] 200 mg 200 mg 200 mg Family tablet Take tablet Take tablet Practic 1 tablet 1 tablet Take 1 e every 6 every 6 tablet hours by hours by every 6 oral route. oral route. hours by oral route. Immunizations Ordered Filled Immunization Date Status Comments [facility] e Immunization Name Name FluAD FluAD 2020-12-17 Completed [facility] 10:23:00 [facility] FluAD FluAD 2020-12-17 Com[facility] 10:23:00 [facility] FluAD FluAD 2020-12-17 Com[facility] - 10:23:00 [facility] FluAD FluAD 2020-12-17 Completed [facility] - 10:23:00 [facility] FluAD FluAD 2020-12-17 Completed [facility] - 10:23:00 [facility] FluAD FluAD 2020-12-17 Completed [facility] - 10:23:00 [facility] FluAD FluAD 2020-12-17 Completed [facility] - 10:23:00 [facility] FluAD FluAD 2020-12-17 Completed [facility] - 10:23:00 [facility] FluAD FluAD 2020-12-17 Completed [facility] - 10:23:00 [facility] FluAD FluAD 2020-12-17 Completed [facility] - 10:23:00 [facility] FluAD FluAD 2020-12-17 Completed [facility] - 10:23:00 [facility] FluAD FluAD 2020-12-17 Com[facility] - 10:23:00 [facility] FluAD FluAD 2020-12-17 Com[facility] - 10:23:00 [facility] Moderna COVID-19 Moderna COVID-19 2020-06-15 [facility] 13:52:00 [facility] Moderna COVID-19 Moderna COVID-19 2020-06-15 Completed [facility] Vaccine Vaccine 13:52:00 [facility] Moderna COVID-19 Moderna COVID-19 2020-06-15 Completed [facility] Vaccine Vaccine 13:52:00 [facility] Moderna COVID-19 Moderna COVID-19 2020-06-15 Completed [facility] Vacc[facility] Vaccine 13:52:00 [facility] Moderna COVID-19 Moderna COVID-19 2020-06-15 Completed [facility] Vaccine 13:52:00 [facility] Moderna COVID-19 Moderna COVID-19 2020-06-15 Completed [facility] Vaccine Vaccine 13:52:00 [facility] Moderna COVID-19 Moderna COVID-19 2020-06-15 Completed [facility] Vaccine Vaccine 13:52:00 [facility] Moderna COVID-19 Moderna COVID-19 2020-06-15 Completed [facility] Vaccine Vaccine 13:52:00 [facility] Moderna COVID-19 Moderna COVID-19 2020-06-15 Completed [facility] Vacc[facility] Vaccine 13:52:00 [facility] Moderna COVID-19 Moderna COVID-19 2020-06-15 Completed [facility] Vaccine Vaccine 13:52:00 [facility] Moderna COVID-19 Moderna COVID-19 2020-06-15 Completed [facility] Vaccine Vaccine 13:52:00 [facility] Moderna COVID-19 Moderna COVID-19 2020-06-15 Completed [facility] Vacc[facility] Vaccine 13:52:00 [facility] SARS-COV-2 COVID-19 2020-06-15 Completed [facility] VACCINE 00:00:00 [facility] SARS-COV-2 COVID-19 2020-06-15 Completed [facility] VACCINE 00:00:00 [facility] ical Branch SARS-COV-2 COVID-19 2020-06-15 Completed [facility] rs[facility] of [facility] 12+ YRS 00:00:00 [facility] SARS-COV-2 COVID-19 2020-06-15 Completed [facility] rs[facility] of MODERNA 12+ YRS 00:00:00 [facility] ical VACCINE Branch SARS-COV-2 COVID-19 2020-06-15 Completed [facility] of [facility]ER[facility] 12+ YRS 00:00:00 [facility] ical VACCINE Branch SARS-COV-2 COVID-19 2020-06-15 Completed [facility] rs[facility] of [facility] 12+ YRS 00:00:00 [facility] VACCINE Branch Moderna COVID-19 Moderna COVID-19 2020-05-18 Completed [facility] Vaccine Vaccine 13:51:00 [facility] Moderna COVID-19 Moderna COVID-19 2020-05-18 Completed [facility] - Vaccine Vaccine 13:51:00 [facility] Moderna COVID-19 Moderna COVID-19 2020-05-18 Completed [facility] Vacc[facility] Vaccine 13:51:00 [facility] Moderna COVID-19 Moderna COVID-19 2020-05-18 Completed [facility] Vaccine Vaccine 13:51:00 [facility] Moderna COVID-19 Moderna COVID-19 2020-05-18 Completed [facility] Vaccine 13:51:00 [facility] Moderna COVID-19 Moderna COVID-19 2020-05-18 Completed [facility] Vaccine Vaccine 13:51:00 [facility] Moderna COVID-19 Moderna COVID-19 2020-05-18 Completed [facility] Vacc[facility] Vaccine 13:51:00 [facility] Moderna COVID-19 Moderna COVID-19 2020-05-18 Completed [facility] Vacc[facility] Vaccine 13:51:00 [facility] Moderna COVID-19 Moderna COVID-19 2020-05-18 Completed [facility] Vaccine Vaccine 13:51:00 [facility] Moderna COVID-19 Moderna COVID-19 2020-05-18 Completed [facility] Vacc[facility] Vaccine 13:51:00 [facility] Moderna COVID-19 Moderna COVID-19 2020-05-18 Completed [facility] Vacc[facility] Vaccine 13:51:00 [facility] Moderna COVID-19 Moderna COVID-19 2020-05-18 Completed [facility] Vacc[facility] Vaccine 13:51:00 [facility] SARS-COV-2 COVID-19 2020-05-18 Completed [facility] VACCINE 00:00:00 [facility] ical Branch SARS-COV-2 COVID-19 2020-05-18 Completed [facility] VACCINE 00:00:00 [facility] ical Branch SARS-COV-2 COVID-19 2020-05-18 Completed [facility] of MODERNA 12+ YRS 00:00:00 [facility] ical VACCINE Branch SARS-COV-2 COVID-19 2020-05-18 Completed [facility]ive rs[facility] of MODERNA 12+ YRS 00:00:00 [facility] ical VACCINE Branch SARS-COV-2 COVID-19 2020-05-18 Completed Unive rs[facility] of MODERNA 12+ YRS 00:00:00 [facility] ical VACCINE Branch SARS-COV-2 COVID-19 2020-05-18 Completed [facility] of MODERNA 12+ YRS 00:00:00 [facility] VACCINE Branch FluAD FluAD 2020-01-09 Completed [facility] - 09:36:00 [facility] FluAD FluAD 2020-01-09 Completed [facility] - 09:36:00 [facility] FluAD FluAD 2020-01-09 Completed [facility] - 09:36:00 [facility] FluAD FluAD 2020-01-09 Completed [facility] - 09:36:00 [facility] FluAD FluAD 2020-01-09 Completed [facility] - 09:36:00 [facility] FluAD FluAD 2020-01-09 Completed [facility] - 09:36:00 [facility] FluAD FluAD 2020-01-09 Completed [facility] - 09:36:00 [facility] FluAD FluAD 2020-01-09 Completed [facility] - 09:36:00 [facility] FluAD FluAD 2020-01-09 Completed [facility] - 09:36:00 [facility] FluAD FluAD 2020-01-09 Completed [facility] - 09:36:00 [facility] FluAD FluAD 2020-01-09 Completed [facility] - 09:36:00 [facility] FluAD FluAD 2020-01-09 Completed [facility] - 09:36:00 [facility] FluAD FluAD 2020-01-09 Completed [facility] - 09:36:00 [facility] Fluzone Fluzone 2019-01-09 Completed [facility] - 12:16:00 [facility] Fluzone Fluzone 2019-01-09 Completed [facility] - 12:16:00 [facility] Fluzone Fluzone 2019-01-09 Completed [facility] - 12:16:00 [facility] Fluzone Fluzone 2019-01-09 Completed [facility] - 12:16:00 [facility] Fluzone Fluzone 2019-01-09 Completed [facility] - 12:16:00 [facility] Fluzone Fluzone 2019-01-09 Completed [facility] - 12:16:00 [facility] Fluzone Fluzone 2019-01-09 Completed [facility] - 12:16:00 [facility] Fluzone Fluzone 2019-01-09 Completed [facility] - 12:16:00 [facility] Fluzone Fluzone 2019-01-09 Completed [facility] - 12:16:00 [facility] Fluzone Fluzone 2019-01-09 Completed [facility] - 12:16:00 [facility] Fluzone Fluzone 2019-01-09 Completed [facility] - 12:16:00 [facility] Fluzone Fluzone 2019-01-09 Completed [facility] - 12:16:00 [facility] Fluzone Fluzone 2019-01-09 Completed [facility] - 12:16:00 [facility] influenza, influenza, 2017-12-19 Completed [facility] injectable, injectable, 00:00:00 [facility] quadrivalent quadrivalent Vital Signs Vital Name Observation Time Observation Value Comments Source Systolic blood 2022-02-04 20:21:00 112 mm[Hg] [facility] of pressure [facility] Diastolic blood 2022-02-04 20:21:00 65 mm[Hg] [facility] of pressure [facility] Heart rate 2022-02-04 20:21:00 81 /min [facility] Respiratory rate 2022-02-04 20:21:00 19 /min [facility] Body height 2022-02-04 20:21:00 172.7 cm [facility] Body weight 2022-02-04 20:21:00 76.567 kg [facility] BMI 2022-02-04 20:21:00 25.67 kg/m2 [facility] Oxygen saturation in 2022-02-04 20:21:00 94 /min [facility] Arterial blood by [facility] Pulse oximetry Branch height 2021-11-04 10:00:00 67.5 [in_i] [facility] weight 2021-11-04 10:00:00 168 [lb_av] [facility] temperature 2021-11-04 10:00:00 97.9 [degF] [facility] bmi 2021-11-04 10:00:00 25.92 kg/m2 [facility] oximetry 2021-11-04 10:00:00 96 % [facility] respiratory rate 2021-11-04 10:00:00 18 /min [facility] blood pressure 2021-11-04 10:00:00 127 mm[Hg] [facility] - systolic [facility] blood pressure 2021-11-04 10:00:00 63 mm[Hg] [facility] - diastolic [facility] height 2021-11-04 10:10:00 67.5 [in_i] [facility] weight 2021-11-04 10:10:00 168 [lb_av] [facility] temperature 2021-11-04 10:10:00 97.9 [degF] [facility] bmi 2021-11-04 10:10:00 25.92 kg/m2 [facility] oximetry 2021-11-04 10:10:00 96 % Common [facility] respiratory rate 2021-11-04 10:10:00 18 /min [facility] on [facility] blood pressure 2021-11-04 10:10:00 127 mm[Hg] Common [facility] - systolic [facility] blood pressure 2021-11-04 10:10:00 63 mm[Hg] Common [facility] - diastolic [facility] Systolic blood 2021-10-15 14:45:00 160 mm[Hg] [facility] Diastolic blood 2021-10-15 14:45:00 76 mm[Hg] Unive rsity [facility] Heart rate 2021-10-15 14:45:00 63 /min [facility] Respiratory rate 2021-10-15 14:45:00 16 /min [facility] Oxygen saturation in 2021-10-15 14:45:00 97 /min [facility] Arterial blood by [facility] Pulse oximetry Branch Body temperature 2021-10-15 14:43:00 35.67 [facility] Body height 2021-10-15 14:43:00 172.7 cm [facility] Body weight 2021-10-15 14:43:00 76.658 kg [facility] BMI 2021-10-15 14:43:00 25.70 kg/m2 [facility] height 2021-07-31 11:40:00 67 [in_i] Common [facility] weight 2021-07-31 11:40:00 169.6 [lb_av] Common [facility] temperature 2021-07-31 11:40:00 97.3 [degF] Common [facility] bmi 2021-07-31 11:40:00 26.56 kg/m2 [facility] oximetry 2021-07-31 11:40:00 96 % [facility] respiratory rate 2021-07-31 11:40:00 17 /min [facility] blood pressure 2021-07-31 11:40:00 141 mm[Hg] [facility] blood pressure 2021-07-31 11:40:00 77 mm[Hg] Common [facility] - diastolic [facility] height 2021-04-21 14:10:00 67 [in_i] [facility] 2021-04-21 14:10:00 173.4 [lb_av] Common [facility] temperature 2021-04-21 14:10:00 97.3 [degF] [facility] bmi 2021-04-21 14:10:00 27.16 kg/m2 Common [facility] oximetry 2021-04-21 14:10:00 95 % [facility] respiratory rate 2021-04-21 14:10:00 17 /min [facility] on [facility] blood pressure 2021-04-21 14:10:00 132 mm[Hg] Common [facility] - systolic [facility] blood pressure 2021-04-21 14:10:00 65 mm[Hg] Common [facility] - diastolic [facility] height 2021-01-12 13:40:00 67 [in_i] Common [facility] weight 2021-01-12 13:40:00 167.0 [lb_av] Common [facility] temperature 2021-01-12 13:40:00 96.4 [degF] [facility] bmi 2021-01-12 13:40:00 26.15 kg/m2 [facility] oximetry 2021-01-12 13:40:00 94 % [facility] 2021-01-12 13:40:00 18 /min [facility] on [facility] blood pressure 2021-01-12 13:40:00 120 mm[Hg] [facility] Center - systolic [facility] blood pressure 2021-01-12 13:40:00 62 mm[Hg] Common [facility] - diastolic [facility] height 2020-12-17 09:30:00 67 [in_i] [facility] weight 2020-12-17 09:30:00 163.6 [lb_av] Common [facility] - [facility] temperature 2020-12-17 09:30:00 97.1 [degF] Common [facility] bmi 2020-12-17 09:30:00 25.62 kg/m2 [facility] oximetry 2020-12-17 09:30:00 96 % [facility] respiratory rate 2020-12-17 09:30:00 18 /min Comm on [facility] blood pressure 2020-12-17 09:30:00 138 mm[Hg] Common [facility] - systolic [facility] blood pressure 2020-12-17 09:30:00 68 mm[Hg] Common [facility] diastolic [facility] Height 2019-07-31 00:00:00 68 [in_i] [facility] BMI (Body Mass 2019-07-31 00:00:00 23.6 kg/m2 [facility] Body Weight 2019-07-31 00:00:00 155 [lb_av] [facility] Procedures Procedure Date / Time Performed Performing Clinician [facility] e REFERRAL- 2021-11-17 05:01:00 Doctor Unassigned, No Univer [facility] REQUEST/RESPONSE Name [facility] HB ECG ROUTINE & 2021-10-15 14:48:37 Portillo Carter [facility] RHYTHM STRIP [facility] Plan of Care Planned Activity Planned Date Details Comments Source Instructions [facility] Encounters Start End Encounter Admission Attending Care Care Encounter Source Date/Time Date/Time Type Type Clinicians Facility Department ID 2022-03-04 Outpatient EPHRAIM CAM [facility] [id number] Univers 11:37:15 ity [facility] 2021-10-20 Outpatient GarnettCECILIA joseph [facility] [id number] Common 16:05:01 [facility] 2021-07-31 Outpatient [facility]ett [facility] Common 11:37:00 Hector [facility] 2021-04-21 Outpatient Garnett, STLMLC STLC [id number] Common 13:56:01 Hector [facility] 2021-04-15 Outpatient Garnett, STLMLC STLC Common 14:04:55 Hector [id number] [facility] 2021-04-15 Outpatient Garnett, STLMLC STLC [id number] Common 13:54:14 Hector [facility] 2021-04-15 Outpatient Garnett, STLMLC STLC Common 13:19:41 Hector [facility] 2021-04-15 [facility] Common 12:45:19 Hector [id number] [facility] 2021-04-15 Outpatient Garnett, [facility] Common 12:42:43 Hector [id number] [facility] 2021-04-15 Outpatient Garnett, [facility] Common 11:17:47 Hector [id number] [facility] 2021-04-15 Outpatient Garnett, [facility] Common 11:17:42 Hector [id number] [facility] 2021-04-15 Outpatient Garnett, [facility] Common 11:04:06 Hector [id number] [facility] 2021-04-15 Outpatient Garnett, ST[facility] Common 11:01:43 Hector [id number] [facility] 2022-06-03 2022-06-03 Outpatient R EPHRAIM WILKINS [facility] [id number] Univers 12:30:00 12:30:00 ity of [facility] 2022-02-15 2022-02-15 Ephraim [place] [id number] [id number] Univers 00:00:00 00:00:00 N OSMANI [id number] it y of HOSPITAL 4.2.7.2.686 [place] [id number] [facility] [address] [place] 2022-02-04 2022-02-04 Outpatient R EPHRAIM WILKINS [facility] [id number] Univers 14:00:00 14:54:35 ity of [facility] 2022-02-04 2022-02-04 Office Ephraim Wilkins [facility] [id number] [id number] Univers 14:00:00 14:30:00 Visit N YULISSA [id number] i ty of [place] [id number] Tn dical NAL 9 [facility] 2022-01-04 2022-01-04 (TEL) [facility] [id number] Co mmon 00:00:00 00:00:00 [facility] 2021-11-24 2021-11-24 Telephone [facility] [id number] Univers 00:00:00 00:00:00 Portillo DUENAS [id number] it[id number] [id number] [place] [id number] [facility] 2021-11-17 2021-11-17 Orders Doctor TROY [id number] [id number] Univers 00:00:00 00:00:00 Only Unassigned, OSMANI 350.1.13.10 ity of [place] [facility] 4.2.7.2.686 [place] as [id number] [facility] [address] [place] 2021-11-16 2021-11-16 Outpatient R EMMA [facility] [id number] Univers 07:56:31 07:56:31 PORTILLO landaverde o f [facility] 2021-11-10 2021-11-10 Telephone [facility] [id number] Univers 00:00:00 00:00:00 Portillo DUENAS 350.1.13.10 it[place] [id number] Tn dical NAL 9 [facility] 2021-11-06 2021-11-06 Outpatient R EMMA, [facility] [id number] Univers 09:00:00 09:00:00 PORTILLO landaverde o [facility] 2021-11-06 2021-11-06 Outpatient R EMMA, [facility] [id number] Univers 07:55:55 08:36:00 PORTILLO landaverde o [facility] 2021-11-04 2021-11-04 OFFICE STLMLC STLMLC [id number] Co mmon 00:00:00 00:00:00 VISIT Spirit ESTAB PT - CHI LEVEL 4 [facility] 2021-11-04 2021-11-04 SUB ANNUAL STLMLC STLMLC [id number] Common 00:00:00 00:00:00 MCR Spirit WELLNESS - CHI VISIT [facility] 2021-10-19 2021-10-19 (TEL) STLMLC STLMLC [id number] Co mmon 00:00:00 00:00:00 Spirit - CHI [facility] 2021-10-15 2021-10-15 Outpatient R EMMA, [facility] [id number] Univers 09:40:00 10:07:54 PORTILLO infante [facility] 2021-10-15 2021-10-15 Outpatient R EMMA, [facility] [id number] Univers 09:40:00 10:07:54 PORTILLO landaverde o [facility] 2021-10-15 2021-10-15 Office Emma, [facility] 1.2.840.114 [id number] Univers 09:40:00 10:07:54 Visit Portillo MESSERPAMELA 350.1.13.10 [facility] [id number] [place] COLLIER [id number] Tn dical NAL 9 [facility] 2021-10-15 2021-10-15 Outpatient R EMMA, [facility] [id number] Univers 09:40:00 10:07:54 PORTILLO landaverde o [facility] 2021-10-15 2021-10-15 Outpatient R EMMA, [facility] [id number] Univers 09:40:00 10:07:54 PORTILLO resendizy o [facility] 2021-10-15 2021-10-15 Orders Doctor TROY [id number] [id number] Univers 00:00:00 00:00:00 Only Unassigned, OSMANI 350.1.13.10 ity of [place] [facility] 4.2.7.2.686 [place] [phone] [place] [address] [place] 2021-09-29 2021-09-29 Orders Doctor TROY [id number] [id number] Univers 00:00:00 00:00:00 Only Unassigned, OSMANI 350.1.13.10 ity of [place] [facility] 4.2.7.2.686 [place] [id number] [place] [address] Branch 2021-09-25 2021-09-25 (TEL) STLMLC STLMLC [id number] Co mmon 00:00:00 00:00:00 [facility] 2021-07-31 2021-07-31 OFFICE STLMLC STLMLC [id number] Co mmon 00:00:00 00:00:00 VISIT Spirit ESTAB PT - CHI LEVEL 4 [facility] 2021-06-01 2021-06-01 (TEL) STLMLC STLMLC [id number] Co mmon 00:00:00 00:00:00 [facility] 2021-05-01 2021-05-01 (TEL) STLMLC STLMLC [id number] Co mmon 00:00:00 00:00:00 [facility] 2021-04-21 2021-04-21 OFFICE STLMLC STLMLC [id number] Co mmon 00:00:00 00:00:00 VISIT Spirit ESTAB PT - CHI LEVEL 4 [facility] 2021-02-09 2021-02-09 (TEL) STLMLC STLMLC [id number] Co mmon 00:00:00 00:00:00 [facility] 2021-01-19 2021-01-19 Office PETR Cobian Smith [id number] [id number] [place] 12:16:11 12:19:00 Visit Fabrice ZEPEDA 350.1.13.58 Víctor TAI 9.2.7.2.686 CLINIC [id number] 1 2021-01-12 2021-01-12 OFFICE STLMLC STLMLC [id number] Co mmon 00:00:00 00:00:00 VISIT EST Spir it PT LEVEL 3 - [facility] 2021-01-12 2021-01-12 (TEL) STLMLC STLMLC [id number] Co mmon 00:00:00 00:00:00 [facility] 2020-12-17 2020-12-17 OFFICE STLMLC STLMLC [id number] Co mmon 00:00:00 00:00:00 VISIT Spirit [facility] PT - CHI LEVEL 4 [facility] 2020-09-19 2020-09-19 Outpatient STLMLC STLMLC [id number] Common 00:00:00 00:00:00 [facility] 2020-09-16 2020-09-16 Outpatient STLMLC STLMLC [id number] Common 00:00:00 00:00:00 [facility] 2020-09-16 2020-09-16 Outpatient STLMLC STLMLC [id number] Common 00:00:00 00:00:00 [facility] 2020-09-08 2020-09-08 Outpatient Miller_S_AH VFP VFP [id number] [facility] 05:10:00 05:10:00 [id number] Family Practic e 2020-08-26 2020-08-26 Outpatient DMG DMG [id number] [facility] 08:00:00 08:00:00 [id number] [facility] 2020-08-22 2020-08-22 Outpatient STLMLC STLMLC [id number] Common 00:00:00 00:00:00 [facility] 2020-08-08 2020-08-08 Outpatient Teodoro-Mbayo VFP VFP [id number] [facility] 05:55:00 05:55:00 _A_AH [id number] Family Practic e 2020-08-06 2020-08-06 Outpatient Teodoro-Mbayo VFP VFP [id number] Village 07:51:00 07:51:00 _A_AH [id number] Family Practic e 2020-08-05 2020-08-05 Outpatient Ricardo VFP VFP [id number] [place] 10:46:00 10:46:00 _A_AH [id number] Family Practic e 2020-08-05 2020-08-05 Isabelle VFP [place] - [id number] V illage 00:00:00 00:00:00 Karol Mathias Fam paula infante SIGNAL HELPER: Medical - Practi c [address] [email or web address] e [facility], [address], [place] [address] , Ph. 2020-06-16 2020-06-16 Outpatient STLMLC STLMLC [id number] Common 00:00:00 00:00:00 [facility] 2020-06-15 2020-06-15 Outpatient [facility] [id number] Univers 13:10:00 13:10:00 [facility] 2020-05-22 2020-05-22 Outpatient STLMLC STLMLC [id number] Common 00:00:00 00:00:00 [facility] 2020-05-18 2020-05-18 Outpatient Tony CHRISTINE, [facility] [id number] Univers 12:40:00 12:40:00 IVAN [facility] 2020-03-05 2020-03-05 Outpatient STLMLC STLMLC [id number] Common 00:00:00 00:00:00 [facility] 2019-12-17 2019-12-17 Outpatient STLMLC STLMLC [id number] Common 00:00:00 00:00:00 [facility] 2019-12-03 2019-12-03 Out[facility] [id number] Common 10:20:00 10:20:[address] [facility] 2019-09-12 2019-09-12 Outpatient Ricardo VFP VFP [id number] [place] 08:12:00 08:12:00 _A_AH [id number] Family Practic e 2019-08-31 2019-08-31 Outpatient [facility] [id number] Common 09:00:00 09:00:[address] [facility] 2019-08-31 2019-08-31 Outpatient [facility] [id number] Common 09:00:00 09:00:[address] [facility] 2019-08-17 2019-08-17 Outpatient Teodoro-Mbayo VFP VFP [id number] [facility] 03:24:00 03:24:00 _A_AH [id number] Family Practic e 2019-08-16 2019-08-16 Outpatient Teodoro-Mbayo VFP VFP [id number] [facility] 02:41:00 02:41:00 _A_AH [id number] Family Practic e 2019-08-08 2019-08-08 Outpatient Teodoro-Mbayo VFP VFP [id number] [facility] 11:01:00 11:01:00 _A_AH [id number] Family Practic e 2019-08-06 2019-08-06 Outpatient Teodoro-Mbayo VFP VFP [id number] [facility] 12:54:00 12:54:00 _A_AH [id number] Family Practic e 2019-08-02 2019-08-02 Outpatient Teodoro-Mbayo VFP VFP [id number] [facility] 12:19:00 12:19:00 _A_AH [id number] Family Practic e 2019-07-31 2019-07-31 Isabelle VFP [place] - [id number] V illage 00:00:00 00:00:00 Teodoro-Mbay [facility] Antonio infante SIGNAL HELPER: Medical - Practi c [address] [email or web address] e [facility], [address] [place] [address], [place] [address] , Ph. 2019-06-16 2019-06-16 Outpatient [facility] [id number] Common 07:56:00 07:56:[address] [facility] 2019-05-16 2019-05-16 Outpatient [facility] [id number] Common 11:13:00 11:13:[address] [facility] 2019-05-09 2019-05-09 Outpatient Ricardo VFP VFP [id number] [facility] 07:11:00 07:11:00 _A_ [id number] Family Practic e 2019-04-09 2019-04-09 Outpatient Santi King [id number] Common 10:30:00 10:30:00 Alignable [facility] [employer] [facility] Results This patient has no known results.
--- NOTE | 2022-03-05 11:36 | RAD REPORT ---
EXAM DESCRIPTION: USExtremity Venous Uni Ltd03/05/2022 11:17 am CLINICAL HISTORY: left leg pain COMPARISON: 2020 FINDINGS: Left common femoral, superficial femoral, popliteal and posterior tibial veins are compre ssible and demonstrate augmentation. Doppler demonstrates good flow. Grayscale, color and spectral analysis performed on all vessels IMPRESSION: No evidence of deep venous thrombosis involving the left lower extremity.
--- NOTE | 2022-03-05 11:42 | EDPHYS ---
Physician Documentation [facility] Name: Nilsa Romero Age: 82 yrs Sex: Female : 1940 Arrival Date: 03/05/2022 Time: 10:31 Bed IW2 Private MD: Livia Garnetth ED Physician Derick Lew HPI: 03/05 10:58 This 82 yrs old Female presents to ER via Ambulatory with complaints of possible blood jmm clot. 10:58 This is an 82-year-old female with history of hyperlipidemia, hypertension, jmm hypothyroidism the presents emerged department with complaints of lower leg swelling which she noticed earlier today with pain. Denies fever or chills. Patient is concerned she may have a blood clot. Patient denies chest pain or shortness of breath.. Historical: - Allergies: 11:33 No Known Allergies; jl7 - PMHx: 11:33 Hyperlipidemia; Hypertension; Hypothyroidism; jl7 - Immunization history:: Client reports receiving the 2nd dose of the Covid vaccine. - Social history:: Smoking status: Patient/guardian denies using tobacco. ROS: 10:58 Constitutional: Negative for fever, chills, and weight loss, Cardiovascular: Negative jmm for chest pain, palpitations, and edema, Respiratory: Negative for shortness of breath, cough, wheezing, and pleuritic chest pain. 10:58 MS/extremity: Positive for swelling. 10:58 All other systems are negative. Exam: 10:58 Constitutional: This is a well developed, well nourished patient who is awake, alert, jmm and in no acute distress. Head/Face: atraumatic. Eyes: EOMI, no conjunctival erythema appreciated ENT: Moist Mucus Membranes Neck: Trachea midline, Supple Chest/axilla: Normal chest wall appearance and motion. Cardiovascular: Regular rate and rhythm. No edema appreciated Respiratory: Normal respirations, no respiratory distress appreciated Abdomen/GI: Non distended Back: Normal ROM Skin: General appearance color normal 10:58 Musculoskeletal/extremity: Swelling noted to the left lower extremity, compartments are soft, dorsalis pedis pulse, neurovascular intact.. 10:58 Skin: Appearance: Color: normal in color. 10:58 Neuro: Orientation: is normal, Mentation: is normal, Memory: is normal. 10:58 Psych: Behavior/mood is pleasant, cooperative. Vital Signs: 11:32 BP 153 / 85; Pulse 70; Resp 17; Temp 98.1; Pulse Ox 96% ; Weight 75.3 kg; Height 5 ft. jl7 8 in. (172.72 cm); Pain 0/10; 11:32 Body Mass Index 25.24 (75.30 kg, 172.72 cm) jl7 MDM: 11:31 Patient medically screened. [facility] 11:39 Data reviewed: vital signs, nurses notes. Counseling: I had a detailed discussion with jm the patient and/or guardian regarding: the historical points, exam findings, and any diagnostic results supporting the discharge/admit diagnosis, radiology results, the need for outpatient follow up, to return to the emergency department if symptoms worsen or persist or if there are any questions or concerns that arise at home. 03/05 10:57 Order name: US Extremity Venous Unilateral Ltd; Complete Time: 11:38 jm Administered Medications: No medications were administered Disposition: 17:06 Co-signature as Attending Physician, Derick Lew MD I agree with the assessment and rt plan of care. Disposition Summary: 03/05/22 11:41 Discharge Ordered Location: Home [facility] Condition: Stable [facility] Diagnosis - Lower Extremity Pain [facility] Followup: [facility] - With: Hector Garnett, DO - When: 2 - 3 days - Reason: Recheck today's complaints, Continuance of care, Re-evaluation by your physician Discharge Instructions: - Discharge Summary Sheet [facility] - Peripheral Edema [facility] Forms: - Medication Reconciliation Form [facility] - Thank You Letter [facility] - Antibiotic Education [facility] - Prescription Opioid Use [facility] Signatures: Dispatcher [employer] Jovanny Crump PA PA jmm Leal, Jahala, RN RN jl7 Derick Lew MD MD rt
--- NOTE | 2022-03-05 11:42 | ER ---
Nurse's Notes [facility] Name: Nilsa Romero Age: 82 yrs Sex: Female : 1940 Arrival Date: 03/05/2022 Time: 10:31 Bed IW2 Private MD: Hector Garnett Diagnosis: Lower Extremity Pain Presentation: 03/05 11:32 Chief complaint: Patient states: Woke with left lower extremity pain, denies swelling, jl7 pain has resolved. Coronavirus screen: Vaccine status: Patient reports receiving the 2nd dose of the covid vaccine. At this time, the client does not indicate any symptoms associated with coronavirus-19. Ebola Screen: No symptoms or risks identified at this time. Initial Sepsis Screen: Does the patient meet any 2 criteria? No. Patient's initial sepsis screen is negative. Does the patient have a suspected source of infection? No. Patient's initial sepsis screen is negative. Risk Assessment: Do you want to hurt yourself or someone else? Patient reports no desire to harm self or others. Onset of symptoms was March 05, 2022. 11:32 Method Of Arrival: Ambulatory jl7 11:32 Acuity: BERNARD 3 jl7 Triage Assessment: 11:33 General: Appears in no apparent distress. uncomfortable, Behavior is calm, cooperative, jl7 appropriate for age. Pain: Denies pain. Historical: - Allergies: 11:33 No Known Allergies; jl7 - PMHx: 11:33 Hyperlipidemia; Hypertension; Hypothyroidism; jl7 - Immunization history:: Client reports receiving the 2nd dose of the Covid vaccine. - Social history:: Smoking status: Patient/guardian denies using tobacco. Screenin:16 [facility] ED Fall Risk Assessment (Adult) History of falling in the last 3 months, jl7 including since admission No falls in past 3 months (0 pts). Humpty Dumpty Scale Fall Assessment Tool (age< 18yrs) Gender Female (1 pt). Abuse screen: Denies threats or abuse. Denies injuries from another. Nutritional screening: No deficits noted. Tuberculosis screening: No symptoms or risk factors identified. Fall Risk No fall in past 12 months (0 pts). No secondary diagnosis (0 pts). No IV (0 pts). Ambulatory Aid- None/Bed Rest/Nurse Assist (0 pts). Gait- Normal/Bed Rest/Wheelchair (0 pts) Mental Status- Oriented to own ability (0 pts). Total Urbina Fall Scale indicates High Risk Score (45 or more points). Fall prevention measures have been instituted. Side Rails Up X 2 Placed Close to Nursing Station. Vital Signs: 11:32 BP 153 / 85; Pulse 70; Resp 17; Temp 98.1; Pulse Ox 96% ; Weight 75.3 kg; Height 5 ft. jl7 8 in. (172.72 cm); Pain 0/10; 11:32 Body Mass Index 25.24 (75.30 kg, 172.72 cm) jl7 ED Course: 10:31 Patient arrived in ED. mr 10:32 Hector Garnett DO is Private Physician. mr 10:56 Jovanny Gill PA is PHCP. jmm 10:56 Derick Lew MD is Attending Physician. jmm 11:19 US Extremity Venous Unilateral Ltd In Process Unspecified. EDMS 11:33 Triage completed. jl7 11:33 Arm band placed on right wrist. Patient placed in waiting room, Patient notified of jl7 wait time. 11:39 Hector Garnett DO is Referral Physician. jmm 12:16 Patient has correct armband on for positive identification. jl7 12:16 No provider procedures requiring assistance completed. Patient did not have IV access jl7 during this emergency room visit. Administered Medications: No medications were administered Medication: 12:16 VIS not applicable for this client. jl7 Outcome: 11:41 Discharge ordered by MD. jmm 12:16 Discharged to home ambulatory. jl7 12:16 Condition: stable 12:16 Discharge instructions given to patient, Instructed on discharge instructions, follow up and referral plans. Demonstrated understanding of instructions, follow-up care. 12:17 Patient left the ED. jl7 Signatures: Dispatcher [employer] EDMS Jovanny Gill PA PA jmm Rivera, Mary mr Leal, Jahala, RN RN jl7
[2022-03-05 12:21] VITALS: BP 153/85; TEMP 98.1; O2SAT 96
== END 2022-03-05 12:17 | disposition home or self-care (01) ==
LOC: ER 10:24
DX: M79.662 Pain in left lower leg (principal)
CPT/HCPCS: 93971; 99283

== ENCOUNTER 2022-03-27 12:33 | Emergency (ER) | payer OTHER ==
--- OUTSIDE RECORDS SUMMARY | 2022-03-27 12:42 | XMS REPORT | Continuity of Care Document ---
:1940 Author Organization [facility] t Address [address] [place] [address] Care Team Providers Name Role Phone Hector Garnett Primary Care Physician EPHRAIM WILKINS Attending Clinician Unavailable Hector Garnett Attending Clinician Unavailable Ephraim Wilkins MD Attending Clinician Pob, [facility] Main Attending Clinician Unavailable Portillo Carter MD Attending Clinician Doctor Unassigned, [place] Attending Clinician Unavailable PORTILLO CARTER Attending Clinician Unavailable Fabrice Cobian MD Attending Clinician Miller_S_AH Attending Clinician Unavailable Teodoro-Janayayo_A_AH Attending Clinician Unavailable IVAN CHRISTINE Attending Clinician Unavailable EPHRAIM WILKINS Admitting Clinician Unavailable Francis_S_AH Admitting Clinician Unavailable Teodoro-Mbayo_A_AH Admitting Clinician Unavailable Payers Payer Name Policy Type Policy Number Effective Date Expiration Date Arron RICHARDS PLS [id number] 2021 O 00:00:00 [place] [address] [id number] [facility] C1 [id number] [facility] C1 [id number] [facility] C1 [id number] [facility] - [facility] - [id number] 2019 2020 [employer]US 00:00:00 00:00:00 (MEDICARE REPLACEMENT/ADVAN [...] Added automatic ally from request for surgery [id number] Abnormal Abnormal Disease Active 2021-03 Overview: Un neil ultrasound ultrasound 04-17 Formattin ity of of lower of lower 00:00: g of this [place] as extremity extremity 00 note Medi tana might be Branch different from the original. Added automatic ally from request for surgery [id number] Abnormal Abnormal Disease Active 2021-03 Overview: Un neil ankle ankle 04-17 Formattin ity of brachial brachial 00:00: g of this [place] as index index 00 note Medical (SANT[place]O) ([place]) might be Branch different from the original. 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 or radiculopa [facility] thy, Medical lumbar Center region [id number] Peripheral Problem Com mon polyneurop Spirit athy [facility] [id number] History of Problem Co mmon cerebral Spirit hemorrhage - [facility] [id number] Acquired Problem Comm on hypothyroi Spirit dism [facility] Essential Benign Problem Common hypertensi essential Spi rit on HTN - [facility] [id number] At high Problem Comm on [id number] risk for Spirit falls - [facility] [id number] Mixed Problem Common hyperlipid Spirit emia [facility] [id number] Other Problem Common chronic Spirit pain [facility] [id number] Stage 3a Problem Comm on chronic Spirit kidney - CHI disease [facility] [id number] Peripheral Problem Co mmon vascular Spirit insufficie - [facility] ncy [facility] [id number] Primary Problem Commo n osteoarthr Spirit itis - [facility]I involving [facility] [id number] +5th digit Problem C ommon 60628 eff Spirit 12/20/19*Ch - CHI ronic kidney [facility] disease, Medical stage 3 Center (moderate) [id number] Scoliosis, Problem Co mmon unspecifie [facility] d - [facility] scoliosis [facility] unspecifie Medica l d spinal Center region [id number] Cardiac Problem Common murmur [facility] Allergies, Adverse Reactions, Alerts Allergy Allergy Status Severity Reaction(s) Onset Inactive Treating Comm ents Source Name Type Date Date Clinician NO KNOWN Drug Active Univers ALLERGIE Class ity of S [facility] Social History Social Habit Start Date Stop Date Quantity Comments Source History of Common Spirit - Tobacco Use [facility] Sex Assigned At Common Sp terrie - [facility] Exposure to 2022-01-25 2022-02-04 Not sure [facility]-CoV-2 00:00:00 13:45:00 [facility] (event) Branch Alcohol intake 2022-02-04 2022-02-04 Current University of 00:00:00 00:00:00 non-drinker of [facility] alcohol (finding) Branch Tobacco use and 2021-10-15 2021-10-15 Smokeless tobacco Un iversity of exposure 00:00:00 00:00:00 non-user [facility] Smoking Status Start Date Stop Date Source Ex-smoker 2021-10-15 00:00:00 2021-10-15 00:00:00 [facility] Never smoked tobacco [facility] Medications Ordered Filled Start Stop Current Ordering Indication Dosage Frequency Signature Comments Components Source Medication Medication Date Date Medication? Clinician (SIG) Name Name losartan 2021- Yes 100mg Take 100 Univ ers 100 mg 7-28 mg by ity of tablet 09:40: mouth in [place] [address] the Medical morning. Branch pravastatin 2021-0 Yes 80mg Take 80 mg Univers 80 mg 7-28 by mouth ity of tablet 09:40: at [place] [address] bedtime. Medical Branch indapamide 2021-0 Yes 2.5mg Take 2.5 Un neil 2.5 mg 7-28 mg by ity of tablet 09:40: mouth [place] [address] every Medical morning. Branch atenoloL 2021-0 Yes 100mg Take 100 Univ ers 100 mg 7-28 mg by ity of tablet 09:40: mouth in [place] [address] the Medical morning. Branch losartan 2021-0 Yes 100mg Take 100 Univ ers 100 mg 7-28 mg by ity of tablet 09:40: mouth in [place] [address] the Medical morning. Branch pravastatin 2021-0 Yes 80mg Take 80 mg Univers 80 mg 7-28 by mouth ity of tablet 09:40: at [place] [address] bedtime. Medical Branch indapamide 2021-0 Yes 2.5mg Take 2.5 Un neil 2.5 mg 7-28 mg by ity of tablet 09:40: mouth [place] [address] every Medical morning. Branch atenoloL 2021-0 Yes 100mg Take 100 Univ ers 100 mg 7-28 mg by ity of tablet 09:40: mouth in [place] [address] the Medical morning. Branch losartan 2-0 Yes 100mg Take 100 Univ ers 100 mg 7-28 mg by ity of tablet 09:40: mouth in [place] [address] the Medical morning. Branch pravastatin 2-0 Yes 80mg Take 80 mg Univers 80 mg 7-28 by mouth ity of tablet 09:40: at [place] [address] bedtime. Medical Branch indapamide 2-0 Yes 2.5mg Take 2.5 Un neil 2.5 mg 7-28 mg by ity of tablet 09:40: mouth [place] [address] every Medical morning. Branch atenoloL 2022-0 Yes 100mg Take 100 Univ ers 100 mg 7-28 mg by ity of tablet 09:40: mouth in [place] [address] the Medical morning. Branch losartan 2022-0 Yes 100mg Take 100 Univ ers 100 mg 7-28 mg by ity of tablet 09:40: mouth in [place] [address] the Medical morning. Branch pravastatin 2022-0 Yes 80mg Take 80 mg Univers 80 mg 7-28 by mouth ity of tablet 09:40: at [place] [address] bedtime. Medical Branch indapamide 2022-0 Yes 2.5mg Take 2.5 Un neil 2.5 mg 7-28 mg by ity of tablet 09:40: mouth [place] [address] every Medical morning. Branch atenoloL 2022-0 Yes 100mg Take 100 Univ ers 100 mg 7-28 mg by ity of tablet 09:40: mouth in [place] [address] the Medical morning. Branch losartan 2022-0 Yes 100mg Take 100 Univ ers 100 mg 7-28 mg by ity of tablet 09:40: mouth in [place] [address] the Medical morning. Branch pravastatin 2022-0 Yes 80mg Take 80 mg Univers 80 mg 7-28 by mouth ity of tablet 09:40: at [place] [address] bedtime. Medical Branch indapamide 2022-0 Yes 2.5mg Take 2.5 Un neil 2.5 mg 7-28 mg by ity of tablet 09:40: mouth [place] [address] every Medical morning. Branch atenoloL 2022-0 Yes 100mg Take 100 Univ ers 100 mg 7-28 mg by ity of tablet 09:40: mouth in [place] [address] the Medical morning. Branch losartan 2022-0 Yes 100mg Take 100 Univ ers 100 mg 7-28 mg by ity of tablet 09:40: mouth in [place] [address] the Medical morning. Branch pravastatin 2022-0 Yes 80mg Take 80 mg Univers 80 mg 7-28 by mouth ity of tablet 09:40: at [place] [address] bedtime. Medical Branch indapamide 2022-0 Yes 2.5mg Take 2.5 Un neil 2.5 mg 7-28 mg by ity of tablet 09:40: mouth [place] [address] every Medical morning. Branch atenoloL 2022-0 Yes 100mg Take 100 Univ ers 100 mg 7-28 mg by ity of tablet 09:40: mouth in [place] [address] the Medical morning. Branch losartan 2022-0 Yes 100mg Take 100 Univ ers 100 mg 7-28 mg by ity of tablet 09:40: mouth in [place] [address] the Medical morning. Branch pravastatin 2022-0 Yes 80mg Take 80 mg Univers 80 mg 7-28 by mouth ity of tablet 09:40: at [place] [address] bedtime. Medical Branch indapamide 2022-0 Yes 2.5mg Take 2.5 Un neil 2.5 mg 7-28 mg by ity of tablet 09:40: mouth [place] [address] every Medical morning. Branch atenoloL 2022-0 Yes 100mg Take 100 Univ ers 100 mg 7-28 mg by ity of tablet 09:40: mouth in [place] [address] the Medical morning. Branch losartan 2022-0 Yes 100mg Take 100 Univ ers 100 mg 7-28 mg by ity of tablet 09:40: mouth in [place] [address] the Medical morning. Branch pravastatin 2-0 Yes 80mg Take 80 mg Univers 80 mg 7-28 by mouth ity of tablet 09:40: at [place] [address] bedtime. Medical Branch indapamide 2022-0 Yes 2.5mg Take 2.5 Un neil 2.5 mg 7-28 mg by ity of tablet 09:40: mouth [place] [address] every Medical morning. Branch atenoloL 2-0 Yes 100mg Take 100 Univ ers 100 mg 7-28 mg by ity of tablet 09:40: mouth in [place] [address] the Medical morning. Branch losartan 2-0 Yes 100mg Take 100 Univ ers 100 mg 7-28 mg by ity of tablet 09:40: mouth in [place] [address] the Medical morning. Branch pravastatin 2022-0 Yes 80mg Take 80 mg Univers 80 mg 7-28 by mouth ity of tablet 09:40: at [place] [address] bedtime. Medical Branch indapamide 2022-0 Yes 2.5mg Take 2.5 Un neil 2.5 mg 7-28 mg by ity of tablet 09:40: mouth [place] [address] every Medical morning. Branch atenoloL 2022-0 Yes 100mg Take 100 Univ ers 100 mg 7-28 mg by ity of tablet 09:40: mouth in [place] [address] the Medical morning. Branch Gabapentin Gabapentin 2-0 No 1{capsu QD Gabapentin 300 MG 300 MG 2- le} 300 MG 00:00: 00 Gabapentin Gabapentin No 1{capsu QD Gabapentin 300 MG 300 MG 04-21 le} 300 MG 00:00: 00 Gabapentin Gabapentin No 1{capsu QD Gabapentin 300 MG 300 MG 04-21 le} 300 MG 00:00: 00 Magnesium 2020-03 Yes Take by [place] 500 MG 03-21 mouth. Health tablet 12:22: 50 omega-3 2020-03 Yes 1 (one) [place] (Fish Oil) 03-21 time each Heal th 1200 MG 12:22: day at the capsule 50 same time. Potassium 2020-03 Yes 1 (one) [place] 99 MG 03-21 time each Health tablet 12:22: day at the 50 same time. pravastatin 2020-03 Yes 1 tablet [facility] (Pravachol) 03-21 Health 80 MG 12:22: tablet 50 atenolol 2020-03 Yes atenolol [place] (Tenormin) 03-21 [...] in the Sp terrie 00:00: morning on an empty [facility] Levothyroxi Levothyroxi 2020-0 No QD Levothyrox ne [...] MCG 00:00: 150 MCG 00 Levothyroxi Levothyroxi 0 No QD Levothyrox ne Sodium ne Sodium 3-30 ine Sodium 150 MCG 150 MCG 00:00: 150 MCG 00 Levothyroxi Levothyroxi 0 No QD Levothyrox ne Sodium ne Sodium 3-30 ine Sodium 150 MCG 150 MCG 00:00: 150 MCG 00 flu vaccine Yes ADM 0.5ML U nivers 63 yrs and 9-22 IM UTD ity of up 180mcg/ 00:00: [place] 0.5 mL 00 Medical Branch flu vaccine Yes ADM 0.5ML U nivers 63 yrs and 9-22 IM UTD ity of up 180mcg/ 00:00: [place] 0.5 mL Medical Branch flu vaccine 2017- Yes ADM 0.5ML U nivers 63 yrs and 9-22 IM UTD ity of up 180mcg/ 00:00: [place] 0.5 mL Medical Branch flu vaccine 0 Yes ADM 0.5ML U nivers 63 yrs and 9-22 IM UTD ity of up 180mcg/ 00:00: [place] 0.5 mL 00 Medical Branch flu vaccine 0 Yes ADM 0.5ML U nivers 63 yrs and 9-22 IM UTD ity of up 180mcg/ 00:00: [place] 0.5 mL 00 Medical Branch flu vaccine 2017-0 Yes ADM 0.5ML U nivers 63 yrs and 9-22 IM UTD ity of up 180mcg/ 00:00: [place] 0.5 mL 00 Medical Branch flu vaccine 2018-0 Yes ADM 0.5ML U nivers 63 yrs and 9-22 IM UTD ity of up 180mcg/ 00:00: [place] 0.5 mL 00 Medical Branch flu vaccine 2018-0 Yes ADM 0.5ML U nivers 63 yrs and 9-22 IM UTD ity of up 180mcg/ 00:00: [place] 0.5 mL 00 Medical Branch flu vaccine 2017-0 Yes ADM 0.5ML U nivers 63 yrs and 9-22 IM UTD ity of up 180mcg/ 00:00: [place] 0.5 mL 00 Medical Branch Fish Oil Fish Oil Yes Hector 1 capsule Common Garnett [facility] Vitamin C Vitamin C Yes Hector 1 tablet Common [facility] Atenolol Atenolol Yes Hector 1 tablet C [facility] Diclofenac Diclofenac Yes Hector not C [facility] defined [facility] Vitamin B12 Vitamin B12 Yes Hector 1 tablet Common [facility] Vitamin E Vitamin E Yes Hector 1 capsule Common [facility] Calcium Calcium Yes Hector 1 tablet Com mon Garnett with a [facility] meal [facility] Magnesium Magnesium Yes Hector 1 tablet Common Garnett with a [facility] meal [facility] Potassium Potassium Yes Hector 1 tablet Common [facility] Indapamide Indapamide Yes Hector 1 tablet Common Garnett in the [facility] morning [facility] Losartan Losartan Yes Hector TAKE 1 Com mon Potassium Potassium Garnett TABLET Sp terrie ONCE DAILY [facility] Folic Acid Folic Acid Yes Hector 1 tablet Common [facility] Biotin Biotin Yes Hector 1 capsule Comm on [facility] Aspir-81 Aspir-81 Yes Hector 1 tablet C [facility] Levothyroxi Levothyroxi Yes Hector 1 tablet Common ne Sodium ne Sodium Garnett on an Spi rit empty - CHI stomach in [facility] Pravastatin Pravastatin Yes Hector 1 tablet Common Sodium Sodium Garnett [facility] Vitamin C Vitamin C No 1{table QD [...] MCG Calcium Calcium No 1{table QD Calcium 9984-6985 3520-7348 t_with_ 2388-2279 MG-UNIT MG-UNIT a_meal} MG-UNIT Fish Oil Fish Oil No 1{capsu QD Fish Oil 1200 MG 1200 MG le} 1200 MG Indapamide Indapamide No 1{table QD Indapamide 2.5 MG 2.5 MG t_in_ 2.5 MG e_morni ng} Diclofenac Diclofenac No [...] MCG Calcium Calcium No 1{table QD Calcium 4481-7695 5271-6603 t_with_ 0785-0881 MG-UNIT MG-UNIT a_meal} MG-UNIT Fish Oil Fish Oil No 1{capsu QD Fish Oil 1200 MG 1200 MG le} 1200 MG Calcium Calcium No 1{table QD Calcium 3940-2478 2618-7530 t_with_ 7268-7566 MG-UNIT MG-UNIT a_meal} MG-UNIT Diclofenac Diclofenac No [...] MG Calcium Calcium No 1{table QD Calcium 3045-7718 6750-2804 t_with_ 4460-7409 MG-UNIT MG-UNIT a_meal} MG-UNIT Tumersaid Tumersaid No [...] 1{table QD Indapamide 2.5 MG 2.5 MG t_in_ 2.5 MG e_morni ng} Fish Oil Fish Oil No 1{capsu QD Fish Oil 1200 MG 1200 MG le} 1200 MG Calcium Calcium No 1{table QD Calcium 1050-4433 3697-3820 t_with_ 1490-4162 MG-UNIT MG-UNIT a_meal} MG-UNIT Tumersaid Tumersaid No [...] MG Calcium Calcium No 1{table QD Calcium 1181-2406 1055-8583 t_with_ 2603-9020 MG-UNIT MG-UNIT a_meal} MG-UNIT Aspir-81 81 Aspir-81 [...] MG Calcium Calcium No 1{table QD Calcium 8795-7342 0817-9728 t_with_ 3041-8546 MG-UNIT MG-UNIT a_meal} MG-UNIT Magnesium Magnesium No [...] 1{table QD Indapamide 2.5 MG 2.5 MG t_in_ 2.5 MG e_morni ng} Vitamin E Vitamin [...] MCG Calcium Calcium No 1{table QD Calcium 1333-8585 9758-4240 t_with_ 0106-1719 MG-UNIT MG-UNIT a_meal} MG-UNIT Losartan Losartan No [...] MCG Calcium Calcium No 1{table QD Calcium 7010-0133 2961-1986 t_with_ 9343-0675 MG-UNIT MG-UNIT a_meal} MG-UNIT Tumersaid Tumersaid No Tumersaid Diclofenac Diclofenac No Diclofenac Calcium Calcium No 1{table QD Calcium 3633-6097 5574-5626 t_with_ 4893-2437 MG-UNIT MG-UNIT a_meal} MG-UNIT Gabapentin Gabapentin No [...] 100 MG 100 MG t} 100 MG indapamide indapamide No 1 Q1D indapamide [place] 2.5 mg 2.5 mg 2.5 mg Family tablet Take tablet Take tablet Practic 1 tablet 1 tablet Take 1 e every day every day tablet by oral by oral every day route. route. by oral route. Vitamin B12 Vitamin B12 No 1{table QD Vitamin 1000 MCG 1000 MCG t} B12 1000 MCG Levothyroxi Levothyroxi No Levothyrox ne Sodium ne Sodium ine Sodium 75 MCG 75 MCG 75 MCG Tumersaid Tumersaid No Tumersaid Diclofenac Diclofenac No Diclofenac Calcium Calcium No 1{table QD Calcium 6952-3384 1008-8332 t_with_ 9306-6614 MG-UNIT MG-UNIT a_meal} MG-UNIT Gabapentin Gabapentin No [...] Sodium 75 MCG 75 MCG 75 MCG levothyroxi levothyroxi No 1capsul Q1D levothyrox [place] ne 112 mcg ne 112 mcg e(s) ine 112 Family capsule capsule mcg Practic Take 1 Take 1 capsule e capsule capsule Take 1 every day every day capsule by oral by oral every day route. route. by oral route. Fish Oil Fish Oil No 1{capsu QD Fish Oil 1200 MG 1200 MG le} 1200 MG Potassium Potassium No 1{table QD Potassium 99 MG 99 MG t} 99 MG Indapamide Indapamide No 1{table QD Indapamide 2.5 MG 2.5 MG t_in_ 2.5 MG e_morni ng} Folic Acid Folic [...] 80 n Sodium MG MG 80 MG losartan losartan No 1 Q1D losartan [place] samuel 100 mg 100 mg 100 mg Family tablet Take tablet Take tablet Practic 1 tablet 1 tablet Take 1 e every day every day tablet by oral by oral every day route. route. by oral route. Aspir-81 81 Aspir-81 81 No 1{table QD [...] Diclofenac Calcium Calcium No 1{table QD Calcium 1292-4401 1803-3103 t_with_ 4837-5281 MG-UNIT MG-UNIT a_meal} MG-UNIT Gabapentin Gabapentin No 1{capsu QD Gabapentin 300 MG 300 MG le} 300 MG Vitamin E Vitamin E No 1{capsu QD Vitamin E 400 UNIT 400 UNIT le} 400 UNIT potassium potassium No 1mg Q1D potassium [place] gluconate gluconate gluconate Family 550 mg (90 550 mg (90 550 mg (90 Practic mg) tablet mg) tablet mg) tablet e Take 1 mg Take 1 mg Take 1 mg every day every day every day by oral by oral by oral route with route with route with meals. meals. meals. Pravastatin Pravastatin No 1{table QD Pravastati Sodium [...] No 1{capsu QD Biotin 5 le} MG pravastatin pravastatin No 1 Q1D pravastati [place] 40 mg 40 mg n 40 mg Family tablet Take tablet Take tablet Practic 1 tablet 1 tablet Take 1 e every day every day tablet by oral by oral every day route. route. by oral route. Losartan Losartan No 1{table QD Losartan Potassium [...] Sodium 75 MCG 75 MCG 75 MCG Gabapentin Gabapentin No 1{capsu QD Gabapentin 300 MG 300 MG le} 300 MG Tumersaid Tumersaid No Tumersaid atenolol atenolol No 1 Q1D atenolol [place] samuel 100 mg 100 mg 100 mg Family tablet Take tablet Take tablet Practic 1 tablet 1 tablet Take 1 e every day every day tablet by oral by oral every day route. route. by oral route. Losartan Losartan No 1{table QD Losartan Potassium Potassium t} Potassium 100 MG 100 MG 100 MG Vitamin B12 Vitamin B12 No 1{table QD Vitamin 1000 MCG 1000 MCG t} B12 1000 MCG Aspir-81 81 Aspir-81 81 No 1{table QD Aspir-81 MG MG t} 81 MG Fish Oil Fish Oil No 1{capsu QD Fish Oil 1200 MG 1200 MG le} 1200 MG Magnesium Magnesium No 1{table QD Magnesium 500 MG 500 MG t_with_ 500 MG a_meal} Atenolol Atenolol No 1{table QD Atenolol 100 MG 100 MG t} 100 MG Pravastatin Pravastatin No Pravastati Sodium 80 Sodium 80 n Sodium MG MG 80 MG Indapamide Indapamide No Indapamide 2.5 MG 2.5 MG 2.5 MG Vitamin E Vitamin E No 1{capsu QD Vitamin E 400 UNIT 400 UNIT le} 400 UNIT Losartan Losartan No Losartan Potassium Potassium Potassium 100 MG 100 MG 100 MG ibuprofen ibuprofen No 1 Q6H ibuprofen [place] 200 mg 200 mg 200 mg Family tablet Take tablet Take tablet Practic 1 tablet 1 tablet Take 1 e every 6 every 6 tablet hours by hours by every 6 oral route. oral route. hours by oral route. Potassium Potassium No 1{table QD Potassium 99 MG 99 MG t} 99 MG Biotin 5 MG Biotin 5 MG No 1{capsu QD Biotin 5 le} MG Atenolol Atenolol No Atenolol 100 MG 100 MG 100 MG Folic Acid Folic Acid No 1{table QD Folic Acid 400 MCG 400 MCG t} 400 MCG Calcium Calcium No 1{table QD Calcium 9559-1311 7943-7955 t_with_ 1683-5719 MG-UNIT MG-UNIT a_meal} MG-UNIT Levothyroxi Levothyroxi No Levothyrox ne Sodium ne Sodium ine Sodium 75 MCG 75 MCG 75 MCG Vitamin C Vitamin C No 1{table QD Vitamin C 1000 MG 1000 MG t} 1000 MG Diclofenac Diclofenac No Diclofenac Gabapentin Gabapentin No 1{capsu QD Gabapentin 300 MG 300 MG le} 300 MG Tumersaid Tumersaid No Tumersaid Losartan Losartan No 1{table QD Losartan Potassium Potassium t} Potassium 100 MG 100 MG 100 MG Vitamin B12 Vitamin B12 No 1{table QD Vitamin 1000 MCG 1000 MCG t} B12 1000 MCG Aspir-81 81 Aspir-81 81 No 1{table QD Aspir-81 MG MG t} 81 MG Fish Oil Fish Oil No 1{capsu QD Fish Oil 1200 MG 1200 MG le} 1200 MG Magnesium Magnesium No 1{table QD Magnesium 500 MG 500 MG t_with_ 500 MG a_meal} Atenolol Atenolol No 1{table QD Atenolol 100 MG 100 MG t} 100 MG Pravastatin Pravastatin No Pravastati Sodium 80 Sodium 80 n Sodium MG MG 80 MG Indapamide Indapamide No Indapamide 2.5 MG 2.5 MG 2.5 MG Vitamin E Vitamin E No 1{capsu QD Vitamin E 400 UNIT 400 UNIT le} 400 UNIT Losartan Losartan No Losartan Potassium Potassium Potassium 100 MG 100 MG 100 MG Potassium Potassium No 1{table QD Potassium 99 MG 99 MG t} 99 MG Biotin 5 MG Biotin 5 MG No 1{capsu QD Biotin 5 le} MG Atenolol Atenolol No Atenolol 100 MG 100 MG 100 MG Folic Acid Folic Acid No 1{table QD Folic Acid 400 MCG 400 MCG t} 400 MCG Calcium Calcium No 1{table QD Calcium 5765-2093 0848-1655 t_with_ 2784-9769 MG-UNIT MG-UNIT a_meal} MG-UNIT Levothyroxi Levothyroxi No Levothyrox ne Sodium ne Sodium ine Sodium 75 MCG 75 MCG 75 MCG Vitamin C Vitamin C No 1{table QD Vitamin C 1000 MG 1000 MG t} 1000 MG Diclofenac Diclofenac No Diclofenac Gabapentin Gabapentin No 1{capsu QD Gabapentin 300 MG 300 MG le} 300 MG Tumersaid Tumersaid No Tumersaid Losartan Losartan No 1{table QD Losartan Potassium Potassium t} Potassium 100 MG 100 MG 100 MG Vitamin B12 Vitamin B12 No 1{table QD Vitamin 1000 MCG 1000 MCG t} B12 1000 MCG Aspir-81 81 Aspir-81 81 No 1{table QD Aspir-81 MG MG t} 81 MG Fish Oil Fish Oil No 1{capsu QD Fish Oil 1200 MG 1200 MG le} 1200 MG Magnesium Magnesium No 1{table QD Magnesium 500 MG 500 MG t_with_ 500 MG a_meal} Atenolol Atenolol No 1{table QD Atenolol 100 MG 100 MG t} 100 MG Pravastatin Pravastatin No Pravastati Sodium 80 Sodium 80 n Sodium MG MG 80 MG Indapamide Indapamide No Indapamide 2.5 MG 2.5 MG 2.5 MG Vitamin E Vitamin E No 1{capsu QD Vitamin E 400 UNIT 400 UNIT le} 400 UNIT Losartan Losartan No Losartan Potassium Potassium Potassium 100 MG 100 MG 100 MG Potassium Potassium No 1{table QD Potassium 99 MG 99 MG t} 99 MG Biotin 5 MG Biotin 5 MG No 1{capsu QD Biotin 5 le} MG Atenolol Atenolol No Atenolol 100 MG 100 MG 100 MG Folic Acid Folic Acid No 1{table QD Folic Acid 400 MCG 400 MCG t} 400 MCG Calcium Calcium No 1{table QD Calcium 3855-2759 2740-9962 t_with_ 1469-9245 MG-UNIT MG-UNIT a_meal} MG-UNIT Levothyroxi Levothyroxi No Levothyrox ne Sodium ne Sodium ine Sodium 75 MCG 75 MCG 75 MCG Vitamin C Vitamin C No 1{table QD Vitamin C 1000 MG 1000 MG t} 1000 MG Diclofenac Diclofenac No Diclofenac Gabapentin Gabapentin No 1{capsu QD Gabapentin 300 MG 300 MG le} 300 MG Tumersaid Tumersaid No Tumersaid Losartan Losartan No 1{table QD Losartan Potassium Potassium t} Potassium 100 MG 100 MG 100 MG Vitamin B12 Vitamin B12 No 1{table QD Vitamin 1000 MCG 1000 MCG t} B12 1000 MCG Aspir-81 81 Aspir-81 81 No 1{table QD Aspir-81 MG MG t} 81 MG Fish Oil Fish Oil No 1{capsu QD Fish Oil 1200 MG 1200 MG le} 1200 MG Magnesium Magnesium No 1{table QD Magnesium 500 MG 500 MG t_with_ 500 MG a_meal} Atenolol Atenolol No 1{table QD Atenolol 100 MG 100 MG t} 100 MG Pravastatin Pravastatin No Pravastati Sodium 80 Sodium 80 n Sodium MG MG 80 MG Indapamide Indapamide No Indapamide 2.5 MG 2.5 MG 2.5 MG Vitamin E Vitamin E No 1{capsu QD Vitamin E 400 UNIT 400 UNIT le} 400 UNIT Losartan Losartan No Losartan Potassium Potassium Potassium 100 MG 100 MG 100 MG Potassium Potassium No 1{table QD Potassium 99 MG 99 MG t} 99 MG Biotin 5 MG Biotin 5 MG No 1{capsu QD Biotin 5 le} MG Atenolol Atenolol No Atenolol 100 MG 100 MG 100 MG Folic Acid Folic Acid No 1{table QD Folic Acid 400 MCG 400 MCG t} 400 MCG Calcium Calcium No 1{table QD Calcium 7508-2212 8584-8011 t_with_ 4977-5510 MG-UNIT MG-UNIT a_meal} MG-UNIT Levothyroxi Levothyroxi No Levothyrox ne Sodium ne Sodium ine Sodium 75 MCG 75 MCG 75 MCG Vitamin C Vitamin C No 1{table QD Vitamin C 1000 MG 1000 MG t} 1000 MG Diclofenac Diclofenac No Diclofenac Calcium Calcium No 1{table QD Calcium 7723-1138 5300-9233 t_with_ 2135-4986 MG-UNIT MG-UNIT a_meal} MG-UNIT Atenolol Atenolol No 1{table QD Atenolol 100 MG 100 MG t} 100 MG Fish Oil Fish Oil No 1{capsu QD Fish Oil 1200 MG 1200 MG le} 1200 MG Folic Acid Folic Acid No 1{table QD Folic Acid 400 MCG 400 MCG t} 400 MCG Indapamide Indapamide No 1{table QD Indapamide 2.5 MG 2.5 MG t_in_ 2.5 MG e_morni ng} Losartan Losartan No [...] n Sodium MG MG 80 MG Vitamin E Vitamin E No 1{capsu [...] Atenolol 100 MG 100 MG 100 MG Immunizations Ordered Filled Immunization Date Status Comments Sourc e Immunization Name Name FluAD FluAD 2020-12-17 [facility] FluAD FluAD 2020-12-17 [facility] 10:23:00 [facility] FluAD FluAD 2020-12-17 [facility] 10:23:00 [facility] FluAD FluAD 2020-12-17 Com[facility] 10:23:00 [facility] FluAD FluAD 2020-12-17 Com[facility] 10:23:00 [facility] FluAD FluAD 2020-12-17 Com[facility] 10:23:00 [facility] FluAD FluAD 2020-12-17 Completed [facility] 10:23:00 [facility] FluAD FluAD 2020-12-17 Com[facility] 10:23:00 [facility] FluAD FluAD 2020-12-17 Completed [facility] 10:23:00 [facility] FluAD FluAD 2020-12-17 Com[facility] 10:23:00 [facility] FluAD FluAD 2020-12-17 Com[facility] 10:23:00 [facility] FluAD FluAD 2020-12-17 Completed [facility] 10:23:00 [facility] FluAD FluAD 2020-12-17 Completed [facility] 10:23:00 [facility] FluAD FluAD 2020-12-17 Completed [facility] 10:23:00 [facility] FluAD FluAD 2020-12-17 Completed [facility] 10:23:00 [facility] FluAD FluAD 2020-12-17 Completed [facility] 10:23:00 [facility] FluAD FluAD 2020-12-17 Com[facility] 10:23:00 [facility] Moderna COVID-19 Moderna COVID-19 2020-06-15 Com[facility] Vaccine Vaccine 13:52:00 [facility] Moderna COVID-19 Moderna COVID-19 2020-06-15 Completed [facility] Vaccine Vaccine 13:52:00 [facility] Moderna COVID-19 Moderna COVID-19 2020-06-15 Completed [facility] Vaccine Vaccine 13:52:00 [facility] Moderna COVID-19 Moderna COVID-19 2020-06-15 Completed [facility] Vaccine Vaccine 13:52:00 [facility] Moderna COVID-19 Moderna COVID-19 2020-06-15 Completed [facility] Vaccine Vaccine 13:52:00 [facility] Moderna COVID-19 Moderna COVID-19 2020-06-15 Completed [facility] Vaccine Vaccine 13:52:00 [facility] Moderna COVID-19 Moderna COVID-19 2020-06-15 Completed [facility] Vaccine Vaccine 13:52:00 [facility] Moderna COVID-19 Moderna COVID-19 2020-06-15 Completed [facility] Vaccine Vaccine 13:52:00 [facility] Moderna COVID-19 Moderna COVID-19 2020-06-15 Completed [facility] Vaccine Vaccine 13:52:00 [facility] Moderna COVID-19 Moderna COVID-19 2020-06-15 Completed [facility] Vaccine Vaccine 13:52:00 [facility] Moderna COVID-19 Moderna COVID-19 2020-06-15 Completed [facility] Vaccine Vaccine 13:52:00 [facility] Moderna COVID-19 Moderna COVID-19 2020-06-15 Completed [facility] Vaccine Vaccine 13:52:00 [facility] Moderna COVID-19 Moderna COVID-19 2020-06-15 Completed [facility] Vaccine Vaccine 13:52:00 [facility] Moderna COVID-19 Moderna COVID-19 2020-06-15 Completed [facility] Vaccine Vaccine 13:52:00 [facility] Moderna COVID-19 Moderna COVID-19 2020-06-15 Completed [facility] Vaccine Vaccine 13:52:00 [facility] Moderna COVID-19 Moderna COVID-19 2020-06-15 Completed [facility] Vaccine Vaccine 13:52:00 [facility] SARS-COV-2 COVID-19 2020-06-15 Completed Unive rsity of [place] VACCINE 00:00:00 [facility] SARS-COV-2 COVID-19 2020-06-15 Completed Unive rsity of [place] VACCINE 00:00:00 [place] [facility] SARS-COV-2 COVID-19 2020-06-15 Completed Unive rsity of [place] 12+ YRS 00:00:00 [facility] ical VACCINE Branch SARS-COV-2 COVID-19 2020-06-15 Completed Unive rsity of [place] 12+ YRS 00:00:00 [facility] ical VACCINE Branch SARS-COV-2 COVID-19 2020-06-15 Completed Unive rsity of [place] 12+ YRS 00:00:00 [facility] ical VACCINE Branch SARS-COV-2 COVID-19 2020-06-15 Completed Unive rsity of [place] 12+ YRS 00:00:00 [facility] ical VACCINE Branch SARS-COV-2 COVID-19 2020-06-15 Completed Unive rsity of [place] 12+ YRS 00:00:00 [facility] ical VACCINE Branch SARS-COV-2 COVID-19 2020-06-15 Completed Unive rsity of [place] 12+ YRS 00:00:00 [facility] ical VACCINE Branch SARS-COV-2 COVID-19 2020-06-15 Completed Unive rsity of [place] 12+ YRS 00:00:00 [facility] ical VACCINE Branch Moderna COVID-19 Moderna COVID-19 2020-05-18 Completed [facility] Vaccine Vaccine 13:51:00 [facility] Moderna COVID-19 Moderna COVID-19 2020-05-18 Completed [facility] - Vaccine Vaccine 13:51:00 [facility] Moderna COVID-19 Moderna COVID-19 2020-05-18 Completed [facility] Vaccine Vaccine 13:51:00 [facility] Moderna COVID-19 Moderna COVID-19 2020-05-18 Completed [facility] Vaccine Vaccine 13:51:00 [facility] Moderna COVID-19 Moderna COVID-19 2020-05-18 Completed [facility] Vaccine Vaccine 13:51:00 [facility] Moderna COVID-19 Moderna COVID-19 2020-05-18 Completed [facility] Vaccine Vaccine 13:51:00 [facility] Moderna COVID-19 Moderna COVID-19 2020-05-18 Completed [facility] Vaccine Vaccine 13:51:00 [facility] Moderna COVID-19 Moderna COVID-19 2020-05-18 Completed [facility] Vaccine Vaccine 13:51:00 [facility] Moderna COVID-19 Moderna COVID-19 2020-05-18 Completed [facility] Vaccine Vaccine 13:51:00 [facility] Moderna COVID-19 Moderna COVID-19 2020-05-18 Completed [facility] Vaccine Vaccine 13:51:00 [facility] Moderna COVID-19 Moderna COVID-19 2020-05-18 Completed [facility] Vaccine Vaccine 13:51:00 [facility] Moderna COVID-19 Moderna COVID-19 2020-05-18 Completed [facility] Vaccine Vaccine 13:51:00 [facility] Moderna COVID-19 Moderna COVID-19 2020-05-18 Completed [facility] - Vaccine Vaccine 13:51:00 [facility] Moderna COVID-19 Moderna COVID-19 2020-05-18 Completed [facility] Vaccine Vaccine 13:51:00 [facility] Moderna COVID-19 Moderna COVID-19 2020-05-18 Completed [facility] Vaccine Vaccine 13:51:00 [facility] Moderna COVID-19 Moderna COVID-19 2020-05-18 Completed [facility] Vaccine Vaccine 13:51:00 [facility] SARS-COV-2 COVID-19 2020-05-18 Completed Unive rsity of [place] VACCINE 00:00:00 [facility] ical Branch SARS-COV-2 COVID-19 2020-05-18 Completed Unive rsity of [place] VACCINE 00:00:00 [facility] ical Branch SARS-COV-2 COVID-19 2020-05-18 Completed Unive rsity of [place] 12+ YRS 00:00:00 [facility] ical VACCINE Branch SARS-COV-2 COVID-19 2020-05-18 Completed Unive rsity of [place] 12+ YRS 00:00:00 [facility] ical VACCINE Branch SARS-COV-2 COVID-19 2020-05-18 Completed Unive rsity of [place] 12+ YRS 00:00:00 [facility] ical VACCINE Branch SARS-COV-2 COVID-19 2020-05-18 Completed Unive rsity of [place] 12+ YRS 00:00:00 [facility] ical VACCINE Branch SARS-COV-2 COVID-19 2020-05-18 Completed Unive rsity of [place] 12+ YRS 00:00:00 [facility] ical VACCINE Branch SARS-COV-2 COVID-19 2020-05-18 Completed Unive rsity of [place] 12+ YRS 00:00:00 [facility] ical VACCINE Branch SARS-COV-2 COVID-19 2020-05-18 Completed Unive rsity of [place] 12+ YRS 00:00:00 [facility] VACCINE Branch FluAD FluAD 2020-01-09 Completed [facility] - 09:36:00 [facility] FluAD FluAD 2020-01-09 Completed [facility] - 09:36:00 [facility] FluAD FluAD 2020-01-09 Completed [facility] - 09:36:00 [facility] FluAD FluAD 2020-01-09 Completed [facility] - 09:36:00 [facility] FluAD FluAD 2020-01-09 Completed [facility] - 09:36:00 [facility] FluAD FluAD 2020-01-09 Completed [facility] - 09:36:00 [facility] FluAD FluAD 2020-01-09 Completed [facility] - 09:36:00 [facility] FluAD FluAD 2020-01-09 Completed [facility] - 09:36:00 [facility] FluAD FluAD 2020-01-09 Completed [facility] - 09:36:00 [facility] FluAD FluAD 2020-01-09 Completed [facility] - 09:36:00 [facility] FluAD FluAD 2020-01-09 Completed [facility] - 09:36:00 [facility] FluAD FluAD 2020-01-09 Completed [facility] - 09:36:00 [facility] FluAD FluAD 2020-01-09 Completed [facility] - 09:36:00 [facility] FluAD FluAD 2020-01-09 Completed [facility] - 09:36:00 [facility] FluAD FluAD 2020-01-09 Completed [facility] - 09:36:00 [facility] FluAD FluAD 2020-01-09 Completed [facility] - 09:36:00 [facility] FluAD FluAD 2020-01-09 Completed [facility] - 09:36:00 [facility] Fluzone Fluzone 2019-01-09 Completed [facility] - 12:16:00 [facility] Fluzone Fluzone 2019-01-09 Completed [facility] - 12:16:00 [facility] Fluzone Fluzone 2019-01-09 Completed [facility] - 12:16:00 [facility] Fluzone Fluzone 2019-01-09 Completed [facility] - 12:16:00 [facility] Fluzone Fluzone 2019-01-09 Completed [facility] - 12:16:00 [facility] Fluzone Fluzone 2019-01-09 Completed [facility] - 12:16:00 [facility] Fluzone Fluzone 2019-01-09 Completed [facility] - 12:16:00 [facility] Fluzone Fluzone 2019-01-09 Completed [facility] - 12:16:00 [facility] Fluzone Fluzone 2019-01-09 Completed [facility] - 12:16:00 [facility] Fluzone Fluzone 2019-01-09 Completed [facility] - 12:16:00 [facility] Fluzone Fluzone 2019-01-09 Completed [facility] - 12:16:00 [facility] Fluzone Fluzone 2019-01-09 Completed [facility] - 12:16:00 [facility] Fluzone Fluzone 2019-01-09 Completed [facility] - 12:16:00 [facility] Fluzone Fluzone 2019-01-09 Completed [facility] - 12:16:00 [facility] Fluzone Fluzone 2019-01-09 Completed [facility] - 12:16:00 [facility] Fluzone Fluzone 2019-01-09 Completed [facility] - 12:16:00 [facility] Fluzone Fluzone 2019-01-09 Completed [facility] - 12:16:00 [facility] influenza, influenza, 2017-12-19 Completed [facility] injectable, injectable, 00:00:00 Practice quadrivalent quadrivalent Vital Signs Vital Name Observation Time Observation Value Comments Source Systolic blood 2022-02-04 20:21:00 112 mm[Hg] Univer sity of pressure [facility] Diastolic blood 2022-02-04 20:21:00 65 mm[Hg] Unive [facility]ity of [facility] Heart rate 2022-02-04 20:21:00 81 /min [facility] Respiratory rate 2022-02-04 20:21:00 19 /min Univ [facility] Body height 2022-02-04 20:21:00 172.7 cm [facility] Body weight 2022-02-04 20:21:00 76.567 kg [facility] BMI 2022-02-04 20:21:00 25.67 kg/m2 [facility] Oxygen saturation in 2022-02-04 20:21:00 94 /min [facility] Arterial blood by [facility] Pulse oximetry Branch height 2021-11-04 10:00:00 67.5 [in_i] [facility] weight 2021-11-04 10:00:00 168 [lb_av] [facility] temperature 2021-11-04 10:00:00 97.9 [degF] [facility] bmi 2021-11-04 10:00:00 25.92 kg/m2 [facility] oximetry 2021-11-04 10:00:00 96 % [facility] respiratory rate 2021-11-04 10:00:00 18 /min [facility] blood pressure 2021-11-04 10:00:00 127 mm[Hg] [facility] - systolic [facility] blood pressure 2021-11-04 10:00:00 63 mm[Hg] [facility] - diastolic [facility] height 2021-11-04 10:10:00 67.5 [in_i] [facility] weight 2021-11-04 10:10:00 168 [lb_av] [facility] temperature 2021-11-04 10:10:00 97.9 [degF] [facility] bmi 2021-11-04 10:10:00 25.92 kg/m2 [facility] oximetry 2021-11-04 10:10:00 96 % [facility] respiratory rate 2021-11-04 10:10:00 18 /min [facility] blood pressure 2021-11-04 10:10:00 127 mm[Hg] [facility] - systolic [facility] blood pressure 2021-11-04 10:10:00 63 mm[Hg] [facility] diastolic [facility] Systolic blood 2021-10-15 14:45:00 160 mm[Hg] Univer sity of [facility] Diastolic blood 2021-10-15 14:45:00 76 mm[Hg] [facility]ive [facility]ity of [facility] Heart rate 2021-10-15 14:45:00 63 /min [facility] Respiratory rate 2021-10-15 14:45:00 16 /min [facility] Oxygen saturation in 2021-10-15 14:45:00 97 /min [facility] Arterial blood by [facility] Pulse oximetry Branch Body temperature 2021-10-15 14:43:00 35.67 [facility]ly [facility] Body height 2021-10-15 14:43:00 172.7 cm [facility] Body weight 2021-10-15 14:43:00 76.658 kg [facility] BMI 2021-10-15 14:43:00 25.70 kg/m2 [facility] height 2021-07-31 11:40:00 67 [in_i] [facility] weight 2021-07-31 11:40:00 169.6 [lb_av] [facility] temperature 2021-07-31 11:40:00 97.3 [degF] [facility] bmi 2021-07-31 11:40:00 26.56 kg/m2 [facility] oximetry 2021-07-31 11:40:00 96 % [facility] respiratory rate 2021-07-31 11:40:00 17 /min [facility] blood pressure 2021-07-31 11:40:00 141 mm[Hg] [facility] systolic [facility] blood pressure 2021-07-31 11:40:00 77 mm[Hg] [facility] diastolic [facility] height 2021-04-21 14:10:00 67 [in_i] [facility] weight 2021-04-21 14:10:00 173.4 [lb_av] [facility] temperature 2021-04-21 14:10:00 97.3 [degF] [facility] bmi 2021-04-21 14:10:00 27.16 kg/m2 [facility] oximetry 2021-04-21 14:10:00 95 % [facility] respiratory rate 2021-04-21 14:10:00 17 /min [facility] blood pressure 2021-04-21 14:10:00 132 mm[Hg] [facility] - systolic [facility] blood pressure 2021-04-21 14:10:00 65 mm[Hg] [facility] diastolic [facility] height 2021-01-12 13:40:00 67 [in_i] [facility] weight 2021-01-12 13:40:00 167.0 [lb_av] [facility] temperature 2021-01-12 13:40:00 96.4 [degF] [facility] bmi 2021-01-12 13:40:00 26.15 kg/m2 [facility] oximetry 2021-01-12 13:40:00 94 % [facility] respiratory rate 2021-01-12 13:40:00 18 /min [facility] blood pressure 2021-01-12 13:40:00 120 mm[Hg] [facility] - systolic [facility] blood pressure 2021-01-12 13:40:00 62 mm[Hg] [facility] - diastolic [facility] height 2020-12-17 09:30:00 67 [in_i] [facility] weight 2020-12-17 09:30:00 163.6 [lb_av] [facility] temperature 2020-12-17 09:30:00 97.1 [degF] [facility] bmi 2020-12-17 09:30:00 25.62 kg/m2 [facility] oximetry 2020-12-17 09:30:00 96 % [facility] respiratory rate 2020-12-17 09:30:00 18 /min [facility] blood pressure 2020-12-17 09:30:00 138 mm[Hg] [facility] systolic [facility] blood pressure 2020-12-17 09:30:00 68 mm[Hg] [facility] diastolic [facility] Height 2019-07-31 00:00:00 68 [in_i] [facility] BMI (Body Mass 2019-07-31 00:00:00 23.6 kg/m2 [facility] Body Weight 2019-07-31 00:00:00 155 [lb_av] [facility] Procedures Procedure Date / Time Performing Clinician Source Performed MAGNESIUM 2022-03-08 15:42:00 Ephraim Wilkins [place] [facility] [place] [facility] BASIC METABOLIC PANEL 2022-03-08 15:42:00 Ephraim Wilkins [facility] (NA, K, CL, CO2, Medical Branch GLUCOSE, BUN, CREATININE, CA) CBC WITH DIFF 2022-03-08 15:42:00 Ephraim Wilkins [place] [facility] PROTHROMBIN TIME / INR 2022-03-08 15:42:00 [facility]- 2021-11-17 05:01:00 Doctor Unassigned, Iliana Ryan [facility] REQUEST/RESPONSE Name [facility] HB ECG ROUTINE & RHYTHM 2021-10-15 14:48:37 [facility] Plan of Care Planned Activity Planned Date Details Comments Source Instructions [facility] Practice Encounters Start End Encounter Admission Attending Care Care Encounter Source Date/Time Date/Time Type Type Clinicians Facility Department ID 2022-03-04 Outpatient R EPHRAIM WILKINS [facility] [id number] Univers 11:37:15 [facility] 2021-10-20 Outpatient [place], STLMLC [facility] [id number] Common 16:05:01 [facility] 2021-07-31 Outpatient [place], STLMLC [facility] [id number] Common 11:37:00 [facility] 2021-04-21 Outpatient [place], STLMLC [facility] [id number] Common 13:56:01 [facility] [facility] 2021-04-15 Outpatient [place], STLMLC ST[facility] [id number] Common 14:04:55 [facility] [address] [facility] 2021-04-15 Outpatient Garn[place], STLMLC [facility] [id number] Common 13:54:14 [place] [address] [facility] 2021-04-15 Outpatient Garnett, STLMLC [facility] [id number] Common 13:19:41 [place] [address] [facility] 2021-04-15 Outpatient [place], STLMLC [facility] [id number] Common 12:45:19 [place] [address] [facility] 2021-04-15 Outpatient Garnett, STLMLC [facility] [id number] Common 12:42:43 [place] [address] [facility] 2021-04-15 Outpatient Garnett, STLMLC [facility] [id number] Common 11:17:47 [place] [address] [facility] 2021-04-15 Outpatient [place], STLMLC [facility] [id number] Common 11:17:42 [place] [address] [facility] 2021-04-15 Outpatient Garnett, STLMLC [facility] [id number] Common 11:04:06 [place] [address] [facility] 2021-04-15 Outpatient [place], STLMLC ST[facility] [id number] Common 11:01:43 [place] [address] [facility] 2022-06-03 2022-06-03 Outpatient R EPHRAIM WILKINS [facility] [id number] Univers 12:30:00 12:30:00 ity of [facility] 2022-03-19 2022-03-19 (TEL) [facility] [id number] Co mmon 00:00:00 00:00:00 [facility] 2022-03-19 2022-03-19 (TEL) [facility] [id number] Co mmon 00:00:00 00:00:00 [facility] 2022-03-16 2022-03-16 Telephone Ephraim Wilkins [facility] [id number] Univers 00:00:00 00:00:00 N HEALTH [id number] [id number] [phone] [place] [id number] Branch OFFICE BUILDING 2022-03-09 2022-03-09 Telephone Ephraim Wilkins [id number] Univers 00:00:00 00:00:00 N OSMANI [id number] it y of HOSPITAL [id number] [place] [id number] [place] [address] Branch 2022-03-08 2022-03-08 Arabic Translator Yasmani, Ad[facility] Lab Main [facility] [id number] Univers 09:30:00 09:45:00 Visit Ephraim Wilkins [id number] [id number] [id number] Tn dical NAL 353 [facility] 2022-03-08 2022-03-08 Outpatient R EPHRAIM WILKINS [facility] [id number] Univers 09:30:00 09:30:00 ity of [facility] 2022-03-05 2022-03-05 (TEL) STLMLC STLMLC [id number] Co mmon 00:00:00 00:00:00 [facility] 2022-03-05 2022-03-05 (TEL) STLMLC STLMLC [id number] Co mmon 00:00:00 00:00:00 [facility] 2022-02-15 2022-02-15 Telephone Ephraim Wilkins [id number] Univers 00:00:00 00:00:00 N OSMANI [id number] it y [facility] [id number] [place] [phone] [address] 2022-02-04 2022-02-04 Outpatient R E[facility]RAIM WILKINS [facility] [id number] Univers 14:00:00 14:54:35 ity [facility] 2022-02-04 2022-02-04 Office Ephraim Wilkins [facility] [id number] Univers 14:00:00 14:30:00 Visit N YULISSA [id number] i ty [id number] [phone] Tn dical NAL 059 [facility] 2022-01-04 2022-01-04 (TEL) STLMLC STLMLC [id number] Co mmon 00:00:00 00:00:00 [facility] 2021-11-24 2021-11-24 Telephone Emma [facility] [id number] Univers 00:00:00 00:00:00 Portillo DUENAS 350.1.13.10 it[place] [phone] Tn dical NAL 059 [facility] 2021-11-17 2021-11-17 Orders Doctor TROY [id number] Univers 00:00:00 00:00:00 Only Unassigned, OSMANI 350.1.13.10 ity of [facility] 4.2.7.2.686 [place] as [phone] [address] 2021-11-16 2021-11-16 [facility] [id number] Univers 07:56:31 07:56:31 PORTILLO infante [facility] 2021-11-10 2021-11-10 [facility]phone [facility] [id number] Univers 00:00:00 00:00:00 Portillo DUENAS [id number] ity [facility] 4.2.7.2.686 [place] joya [facility] [phone] [place] [id number] [facility] 2021-11-06 2021-11-06 Outpatient [facility] [id number] Univers 09:00:00 09:00:00 PORTILLO infante [facility] 2021-11-06 2021-11-06 Outpatient [facility] [id number] Univers 07:55:55 08:36:[address] [facility] 2021-11-04 2021-11-04 [facility] [id number] Co mmon 00:00:00 00:00:00 VISIT Spirit ESTAB PT - CHI LEVEL 4 [facility] 2021-11-04 2021-11-04 SUB ANNUAL [facility] [id number] Common 00:00:00 00:00:00 MCR Spirit WELLNESS - CHI VISIT [facility] 2021-10-19 2021-10-19 (TEL) [facility] [id number] Co mmon 00:00:00 00:00:00 Spirit - CHI [facility] 2021-10-15 2021-10-15 Outpatient [facility] [id number] Univers 09:40:00 10:07:54 PORTILLO infante [facility] 2021-10-15 2021-10-15 Office [facility] [id number] Univers 09:40:00 10:07:54 Visit Portillo DUENAS 350.1.13.10 ity [id number] [phone] [place] [id number] [facility] 2021-10-15 2021-10-15 Outpatient R EMMA, [facility] [id number] Univers 09:40:00 10:07:54 PORTILLO resendizy o [facility] 2021-10-15 2021-10-15 Outpatient R EMMA, [facility] [id number] Univers 09:40:00 10:07:54 PORTILLO landaverde o [facility] 2021-10-15 2021-10-15 Outpatient R EMMA, [facility] [id number] Univers 09:40:00 10:07:54 PORTILLO resendizsonny o [facility] 2021-10-15 2021-10-15 Orders Doctor TROY [id number] Univers 00:00:00 00:00:00 Only Unassigned, OSMANI [id number] ity of [place] [facility] 4.2.7.2.686 [place] as [phone] [address] 2021-09-29 2021-09-29 Orders Doctor TROY [id number] Univers 00:00:00 00:00:00 Only Unassigned, OSMANI 350.1.13.10 ity of [place] [facility] 4.2.7.2.686 [place] as [phone] [address] 2021-09-25 2021-09-25 (TEL) STLC STLMLC [id number] Co mmon 00:00:00 00:00:00 Spirit - CHI [facility] 2021-07-31 2021-07-31 OFFICE STLMLC STLMLC [id number] Co mmon 00:00:00 00:00:00 VISIT Spirit [facility] PT - CHI LEVEL 4 [facility] 2021-06-01 2021-06-01 (TEL) STLMLC STLMLC [id number] Co mmon 00:00:00 00:00:00 Spirit - CHI [facility] 2021-05-01 2021-05-01 (TEL) STLMLC STLMLC [id number] Co mmon 00:00:00 00:00:00 [facility] 2021-04-21 2021-04-21 OFFICE STLMLC STLMLC [id number] Co mmon 00:00:00 00:00:00 VISIT Spirit ESTAB PT - CHI LEVEL 4 [facility] 2021-02-09 2021-02-09 (TEL) STLMLC STLMLC [id number] Co mmon 00:00:00 00:00:00 [facility] 2021-01-19 2021-01-19 Office MangoPETR [facility] [id number] [id number] 12:16:11 12:19:00 Visit Fabrice ZEPEDA 350.1.13.58 Víctor TAI 9.2.7.2.686 [facility] [phone] [id number] 2021-01-12 2021-01-12 OFFICE STLMLC STLMLC [id number] Co mmon 00:00:00 00:00:00 VISIT EST Spir it PT LEVEL 3 - [facility] 2021-01-12 2021-01-12 (TEL) STLMLC STLMLC [id number] Co mmon 00:00:00 00:00:00 [facility] 2020-12-17 2020-12-17 OFFICE STLMLC STLMLC [id number] Co mmon 00:00:00 00:00:[address] [facility] ESTAB PT - CHI LEVEL 4 [facility] 2020-09-19 2020-09-19 Outpatient STLMLC STLMLC [id number] Common 00:00:00 00:00:00 [facility] 2020-09-16 2020-09-16 Outpatient STLMLC STLMLC [id number] Common 00:00:00 00:00:00 [facility] 2020-09-16 2020-09-16 Outpatient STLMLC STLMLC [id number] Common 00:00:00 00:00:00 [facility] 2020-09-08 2020-09-08 Outpatient Miller_S_ VFP VFP [id number] [facility] 05:10:00 05:10:00 [id number] Family Practic e 2020-08-26 2020-08-26 Outpatient DMG DMG [id number] [facility] 08:00:00 08:00:00 [id number] [facility] 2020-08-22 2020-08-22 Outpatient STLMLC STLMLC [id number] Common 00:00:00 00:00:00 [facility] 2020-08-08 2020-08-08 Outpatient Teodoro-Mbayo VFP VFP [id number] [facility] 05:55:00 05:55:00 _A_AH 65493 Family Practic e 2020-08-06 2020-08-06 Outpatient Teodoro-Mbayo VFP VFP [id number] [facility] 07:51:00 07:51:00 _A_AH 87201 Family Practic e 2020-08-05 2020-08-05 Outpatient Teodoro-Mbayo VFP VFP [id number] [facility] 10:46:00 10:46:00 _A_AH 26758 Family Practic e 2020-08-05 2020-08-05 Isabelle VFP [place] - [id number] V illage 00:00:00 00:00:00 [facility] Fam paula infante PATENT ATTORNEY: Medical - Practi c [address] [email or web address] [address], [place] [address] , Ph. 2020-06-16 2020-06-16 Outpatient STLMLC STLMLC [id number] Common 00:00:00 00:00:00 [facility] 2020-06-15 2020-06-15 Outpatient [facility] [id number] Univers 13:10:00 13:10:00 [facility] 2020-05-22 2020-05-22 Outpatient STLMLC STLMLC [id number] Common 00:00:00 00:00:00 [facility] 2020-05-18 2020-05-18 Outpatient Tony CHRISTINE, [facility] [id number] Univers 12:40:00 12:40:00 IVAN [facility] 2020-03-05 2020-03-05 Outpatient STLMLC STLMLC [id number] Common 00:00:00 00:00:00 [facility] 2019-12-17 2019-12-17 Outpatient STLMLC STLMLC [id number] Common 00:00:00 00:00:00 [facility] 2019-12-03 2019-12-03 Out[facility] [id number] Common 10:20:00 10:20:[address] [facility] 2019-09-12 2019-09-12 Outpatient Teodoro-Mbayo VFP VFP [id number] [place] 08:12:00 08:12:00 _A_AH 88182 Family Practic e 2019-08-31 2019-08-31 Outpatient [facility] [id number] Common 09:00:00 09:00:[address] [facility] 2019-08-31 2019-08-31 Outpatient [facility] [id number] Common 09:00:00 09:00:[address] [facility] 2019-08-17 2019-08-17 Outpatient Teodoro-Mbayo VFP VFP [id number] [facility] 03:24:00 03:24:00 _A_AH 40779 Family Practic e 2019-08-16 2019-08-16 Outpatient Teodoro-Mbayo VFP VFP [id number] [facility] 02:41:00 02:41:00 _A_AH 47097 Family Practic e 2019-08-08 2019-08-08 Outpatient Teodoro-Mbayo VFP VFP [id number] [place] 11:01:00 11:01:00 _A_AH 53741 Family Practic e 2019-08-06 2019-08-06 Outpatient Teodoro-Mbayo VFP VFP [id number] [facility] 12:54:00 12:54:00 _A_AH 17697 Family Practic e 2019-08-02 2019-08-02 Outpatient Teodoro-Mbayo VFP VFP [id number] [facility] 12:19:00 12:19:00 _A_AH 51611 Family Practic e 2019-07-31 2019-07-31 Isabelle VFP [place] - [id number] V illage 00:00:00 00:00:00 Karol [facility] Fam paula infante PATENT ATTORNEY: Medical - Practi c [address] [email or web address] [facility], [address] [place] [address], [place] [address] , Ph. 2019-06-16 2019-06-16 Outpatient [facility] [id number] Common 07:56:00 07:56:00 t [employer] ([place] Co Drive Spir it Drive [facility] 2019-05-16 2019-05-16 Outpatient [facility] [id number] Common 11:13:00 11:13:[address] [facility] 2019-05-09 2019-05-09 Outpatient [facility] [id number] [facility] 07:11:00 07:11:00 _A_ 83277 Family Practic e 2019-04-09 2019-04-09 Outpatient [facility] [id number] Common 10:30:00 10:30:00 t [employer] ([place] Co Drive Spir it Drive [facility] Results Test Description Test Time Test Comments Results Result Comments Source BASIC METABOLIC PANEL (NA, K, CL, CO2, GLUCOSE, BUN, 2022-02 16:36:50 CREATININE, CA) Test Item Value Reference Range Interpretation Comme nts NA (test code = 5328047757) 136 mmol/L 135-145 K (test code = 1152149418) 4.4 mmol/L 3.5-5.0 CL (test code = 8269230896) 99 mmol/L 98-108 CO2 TOTAL (test code = 2408652721) 33 mmol/L 23-31 H AGAP (test code = 8555471396) 2-16 BUN (test code = 9439272700) 22 mg/dL 7-23 GLUCOSE (test code = 3268384251) 101 mg/dL 70-110 CREATININE (test code = 0.83 mg/dL 0.50-1.04 5756004520) CALCIUM (test code = 3024848616) 9.2 mg/dL 8.6-10.6 eGFR (test code = 6610278244) mL/min/1.73m2 AUNG (test code = AUNG) Association of Glomerular Filtration Rate (GFR) and Staging of Kidney Disease* + +-------- + ------+| GFR (mL/min/1.73 m2) ?| With Kidney Damage ?| ?Without Kidney Damage+ +-- + +| ?>90 ?| ?Stage one ?| ? Normal ?+ +------- + -------+| ?60-89 ?| ?Stage two ?| ? Decreased GFR ? + +-------- + ------+| ?30-59 ?| ?Stage three ?| ? Stage three ? + +-------- + ------+| ?15-29 ?| ?Stage four ? | ? Stage four ?+ +------- + -------+| ?<15 (or dialysis) ? ?| ?Stage five ? | ? Stage five ?+ +------- + -------+ *Each stage assumes the associated GFR level has been in effect for at least three months. ?Stages 1 to 5, with or without kidney disease, indicate chronic kidney disease. Notes: Determination of stages one and two (with eGFR >59mL/min/1.73 m2) requires estimation of kidney damage for at least three months as defined by structural or functional abnormalities of the kidney, manifested by either:Pathological abnormalities or Markers of kidney damage (including abnormalities in the composition of the blood or urine or abnormalities in imaging tests). Lab Interpretation (test code = Abnormal 36283-2) [facility] 16:36:50 Test Item Value Reference Range Interpretation Comments MAGNESIUM (test code = 1120632720) 1.8 mg/dL 1.7-2.4 Lab Interpretation (test code = Normal 67640-4) [facility] / [id number] 16:02:30 Test Item Value Reference Range Interpretation Comments PROTIME PATIENT (test See_Comment [Auto mated message] code = 5964-2) The system [employer] generated this result transmitted ref erence range: 12.0 - 1 4.7 Seconds. The re ference range was not u sed to interpret this result as normal/abnor mal. INR (test code = 6301-6) Nor mal INR <1.1; Warfarin Therap eutic range 2.0 to 3. 0 or 2.5 to 3.5, dep ending upon the indica tions. Lab Interpretation (test Normal code = 15362-8) [facility] [id number] 15:50:09 Test Item Value Reference Range Interpretation Comments WBC (test code = See_Comment [Automated 6690-2) message] The sy stem which generated this result transmitted reference range : 4.30 - 11.10 10*3/?L. The reference range was not used to interpret this result as normal/abnormal . RBC (test code = See_Comment L [Automated 789-8) message] The sy stem which generated this result transmitted reference range : 3.93 - 5.25 10*6/?L. The reference range was not used to interpret this result as normal/abnormal . HGB (test code = 11.5 g/dL 11.6-15.0 L 718-7) HCT (test code = 34.7 % 35.7-45.2 L 4544-3) MCV (test code = 99.7 fL 80.6-95.5 H 787-2) MCH (test code = 33.0 pg 25.9-32.8 H 785-6) MCHC (test code = 33.1 g/dL 31.6-35.1 786-4) RDW-SD (test code = 47.4 fL 39.0-49.9 16437-7) RDW-CV (test code = 13.0 % 12.0-15.5 788-0) PLT (test code = See_Comment [Automated 777-3) message] The sy stem which generated this result transmitted reference range : 166 - 358 10*3/ ?L. The reference r leopoldo was not used to interpret this result as normal/abnormal . MPV (test code = 9.3 fL 9.5-12.9 L 19547-0) NRBC/100 WBC (test See_Comment [Automat ed code = 5882645377) message] The system which generated this result transmitted reference range : 0.0 - 10.0 /100 WBCs. The refer ence range was not u sed to interpret th is result as normal/abnormal . NRBC x10^3 (test code See_Comment [Auto mated = 6645919749) message] The s ystem which generated this result transmitted reference range : 10*3/?L. The reference range was not used to interpret this result as normal/abnormal . GRAN MAT (NEUT) % 57.1 % (test code = 770-8) IMM GRAN % (test code 0.30 % = 9941694537) LYMPH % (test code = 28.6 % 736-9) MONO % (test code = 8.7 % 5905-5) EOS % (test code = 4.6 % 713-8) BASO % (test code = 0.7 % 706-2) GRAN MAT x10^3(ANC) 3.49 10*3/uL 1.88-7.09 (test code = 4925640689) IMM GRAN x10^3 (test 0.00-0.06 code = 1562142378) LYMPH x10^3 (test code 1.75 10*3/uL 1.32-3.29 = 731-0) MONO x10^3 (test code 0.53 10*3/uL 0.33-0.92 = 742-7) EOS x10^3 (test code = 0.28 10*3/uL 0.03-0.39 711-2) BASO x10^3 (test code 0.04 10*3/uL 0.01-0.07 = 704-7) Lab Interpretation Abnormal (test code = 99527-0) [facility]"
[2022-03-27] MEDS ORDERED: DIAZEPAM 10 MG/2 ML INJ SYRINGE ONE (13:44)
[2022-03-27] MEDS ORDERED: MORPHINE 2 MG/ML SYR ONE (13:45)
[2022-03-27] MEDS ORDERED: ONDANSETRON 4 MG/2 ML VIAL ONE (13:45)
[2022-03-27 14:14] LABS: Urine Blood 2+ (Negative); Urine Glucose Negative (Negative); Urine Protein Negative (Negative); Urine Specific Gravity 1.015 (1.005-1.030)
[2022-03-27 14:16] LABS: Hematocrit 31.8 % (36.0-45.0); Lymphocytes % 15.4 % (15.3-44.8); MCV 99.3 fL (80-100); MPV 7.8 fL (7.6-11.3); RBC Red Blood Cell Count 3.21 M/uL (3.86-4.86)
[2022-03-27 14:26] LABS: Potassium 3.8 mmol/L (3.5-5.1)
--- NOTE | 2022-03-27 15:14 | RAD REPORT ---
EXAM DESCRIPTION: CT - Chest For Pe Angio - 03/27/2022 2:55 pm CLINICAL HISTORY: left thoracic back pain COMPARISON: No comparisons TECHNIQUE: Dynamically enhanced axial 3 mm thick images of the chest were obtained during administra tion of <100> mL Isovue 370 IV contrast. Coronal and oblique reconstruction images were generated and reviewed. Exam utilizes a protocol for optimal evaluation of pulmonary arterial tree. Maximum intensity projections 3D imaging was utilized All CT scans are performed using dose optimization technique as appropriate and may include automated exposure control or mA/KV adjustment according to patient size. FINDINGS: Chest Wall: No suspicious thyroid nodules or pathologic lymphadenopathy. Lungs: Limited by motion. Mosaic lung attenuation. Question mild interlobular septal thickening. Cent rilobular emphysema. Pleura: Small left pleural effusion. Mediastinum/reji: No pathologic lymphadenopathy. Small hiatal hernia. Pulmonary arteries/Aorta: No filling defect identified. Short-segment descending thoracic aortic diss ection measuring up to 3.8 cm at the level of the left atrium. A second short-segment dissection is p resent near the esophageal hiatus. The aorta measures up to 3.2 cm at this location. . Aortic atheros clerosis. Aortic valve calcifications. Heart: No significant pericardial effusion. Mild cardiomegaly. Multi-vessel coronary artery disease. Upper abdomen: Reference same-day CT of the abdomen pelvis Bones: Age indeterminate T2 compression fracture less than 20% loss of height. No bony retropulsion. Remote left-sided rib fractures. IMPRESSION: Negative for pulmonary embolism. Nonspecific mosaic lung attenuation which could reflect hypoventilation or small airways disease. Question mild interstitial edema. 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 The d escending thoracic aorta is ectatic at these locations. Slight compression deformity at T2 could reflect an age-indeterminate compression fracture. Correlate with site of pain.
--- NOTE | 2022-03-27 15:16 | RAD REPORT ---
EXAM DESCRIPTION: CTAbdomen Pelvis W Contrast - 03/27/2022 2:57 pm CLINICAL HISTORY: back pain, flank pain COMPARISON: Chest For Pe Angio dated 03/27/2022 TECHNIQUE: CT of the abdomen and pelvis was performed. All CT scans are performed using dose optimization technique as appropriate and may include automated exposure control or mA/KV adjustment according to patient size. FINDINGS: Lower chest: Aortic valve calcifications. Coronary artery calcifications. Moderate hiatal hernia. Liver: No acute abnormality or suspicious lesions. Biliary: No biliary ductal dilatation. Stomach: No significant focal abnormality. Duodenum: No significant focal abnormality. Pancreas: No significant abnormality. Spleen: No significant abnormality. Adrenal: No suspicious lesions. Kidney/ureter: No hydronephrosis. Too small to characterize and/or benign appearing renal lesions are noted. Retroperitoneum: No retroperitoneal adenopathy. Vascular: Infrarenal abdominal aortic aneurysm measuring 3.2 cm. Atherosclerosis. Bowel: No significant focal abnormality. Peritoneum: No ascites or free air. Bladder: Grossly unremarkable. Reproductive: No adnexal masses. Bones: No acute fracture. Mild superior endplate compression deformity at L4 is favored chronic. Mult ilevel degenerative changes are present in the spine. Other: n/a IMPRESSION: No acute intra-abdominal or pelvic finding. Infrarenal aortic aneurysm measuring 3.2 cm. Other incidental findings as noted above.
--- NOTE | 2022-03-27 15:52 | ER ---
Nurse's Notes [facility] Name: Nilsa Romero Age: 82 yrs Sex: Female : 1940 Arrival Date: 03/27/2022 Time: 12:34 Bed 11 Private MD: Hector Garnett Diagnosis: Thoracic aortic aneurysm, chronic;Infrarenal abdominal aortic aneurysm Presentation: 03/27 13:03 Chief complaint: Patient states: left upper back pain x3 years. Currently under kb3 evaluation with spinal specialist who diagnosed her with scoliosis and sent her to PT. Unable to tolerate PT due to pain and is was suggested to her that pain could be related to kidneys. Coronavirus screen: Vaccine status: Patient reports receiving the 2nd dose of the covid vaccine. Client denies travel out of the [place] in the last 14 days. Ebola Screen: Patient negative for fever greater than or equal to 101.5 degrees Fahrenheit, and additional compatible Ebola Virus Disease symptoms Patient denies exposure to infectious person. Patient denies travel to an Ebola-affected area in the 21 days before illness onset. Initial Sepsis Screen: Does the patient meet any 2 criteria? No. Patient's initial sepsis screen is negative. Does the patient have a suspected source of infection? No. Patient's initial sepsis screen is negative. Risk Assessment: Do you want to hurt yourself or someone else? Patient reports no desire to harm self or others. Onset of symptoms is unknown. 13:03 Method Of Arrival: Ambulatory kb3 13:03 Acuity: BERNARD 3 kb3 Triage Assessment: 13:06 General: Appears in no apparent distress. Behavior is calm, cooperative. Pain: kb3 Complains of pain in left subscapular area Pain does not radiate. Pain currently is 8 out of 10 on a pain scale. Quality of pain is described as burning, sharp. Musculoskeletal: Capillary refill < 3 seconds, Tenderness present in left subscapular area. Historical: - Allergies: 13:06 No Known Allergies; kb3 - Home Meds: 13:06 Unable to obtain [Active]; kb3 - PMHx: 13:06 Hyperlipidemia; Hypertension; Hypothyroidism; kb3 - PSHx: 13:06 None; kb3 - Immunization history:: Adult Immunizations up to date, Client reports receiving the 2nd dose of the Covid vaccine, Last tetanus immunization: up to date. - Social history:: Smoking status: Patient denies any tobacco usage or history of. Screenin:07 [facility] ED Fall Risk Assessment (Adult) History of falling in the last 3 months, kb3 including since admission No falls in past 3 months (0 pts) Confusion or Disorientation No (0 pts) Intoxicated or Sedated No (0 pts) Impaired Gait No (0 pts) Mobility Assist Device Used No (0 pt) Altered Elimination No (0 pt) Score/Fall Risk Level 0 - 2 = Low Risk Oriented to surroundings, Maintained a safe environment, Educated pt \T\ family on fall prevention, incl call for assistance when getting out of bed, Assessed \T\ reinforced patient's understanding of fall precautions, Provided non-skid footwear, Hourly rounding (assess needs \T\ fall precautionary measures) done, Used ambulatory aids as needed (educated on \T\ assisted with), Used gait belt as appropriate. Abuse screen: Denies threats or abuse. Denies injuries from another. Nutritional screening: No deficits noted. Tuberculosis screening: No symptoms or risk factors identified. Assessment: 13:07 General: see triage note. Neuro: No deficits noted. Musculoskeletal: Reports pain in kb3 left subscapular area. Vital Signs: 13:03 BP 148 / 87; Pulse 71; Resp 20; Temp 98; Pulse Ox 99% ; Weight 74.84 kg; Height 5 ft. 8 kb3 in. (172.72 cm); Pain 8/10; 15:55 BP 183 / 83; Pulse 74; Resp 20; Pulse Ox 99% ; Pain 0/10; kb3 13:03 Body Mass Index 25.09 (74.84 kg, 172.72 cm) kb3 ED Course: 12:34 Patient arrived in ED. am2 12:34 Hector Garnett DO is Private Physician. am2 12:55 Jovanny Gill PA is PHCP. [facility] 12:55 Dmitry Delgadillo MD is Attending Physician. [facility] 13:03 Melissa Elena, LESLIE is Primary Nurse. kb3 13:05 Triage completed. kb3 13:06 Arm band placed on right wrist. kb3 13:07 Patient has correct armband on for positive identification. kb3 13:07 No provider procedures requiring assistance completed. kb3 13:55 Inserted saline lock: 22 gauge in left antecubital area, using aseptic technique. Blood kb3 collected. 14:08 BMP Sent. kb3 14:08 CBC with Diff Sent. kb3 14:57 Chest For Pe Angio In Process Unspecified. EDMS 14:59 CT Abd/Pelvis - IV Contrast Only In Process Unspecified. EDMS 16:10 IV discontinued, intact, bleeding controlled, No redness/swelling at site. Pressure kb3 dressing applied. Administered Medications: 14:00 Drug: morphine 2 mg Route: IVP; Infused Over: 4 mins; Site: left antecubital; kb3 15:00 Follow up: Response: No adverse reaction; Pain is decreased kb3 14:00 Drug: Zofran (Ondansetron) 4 mg Route: IVP; Site: left antecubital; kb3 15:56 Follow up: Response: No adverse reaction kb3 14:00 Drug: Valium (diazepam) 2 mg Route: IVP; Site: left antecubital; kb3 15:00 Follow up: Response: No adverse reaction; Pain is decreased kb3 Medication: 13:07 VIS not applicable for this client. kb3 Outcome: 15:52 Discharge ordered by . bev 16:10 Discharged to home ambulatory. kb3 16:10 Condition: stable 16:10 Discharge instructions given to patient, family, Instructed on discharge instructions, follow up and referral plans. medication usage, Demonstrated understanding of instructions, follow-up care, medications, Prescriptions given X 1. 16:10 Patient left the ED. kb3 Signatures: Dispatcher [employer] EDMS Jovanny Gill PA PA jmm Moreno, Amanda am2 Melissa Elena, RN RN kb3
--- NOTE | 2022-03-27 15:52 | EDPHYS ---
Physician Documentation [facility] Name: Nilsa Romero Age: 82 yrs Sex: Female : 1940 Arrival Date: 03/27/2022 Time: 12:34 Bed 11 Private MD: Tamir [facility] ED Physician Dmitry Delgadillo HPI: 03/27 13:06 This 82 yrs old Female presents to ER via Ambulatory with complaints of Back Pain - jmm left upper side. 13:06 The patient presents with pain that is acute, that is chronic. The symptoms are located jmm in the left subscapular area and right subscapular area. Onset: The symptoms/episode began/occurred last night. Is an 82-year-old female with history of hyperlipidemia, hypertension, hypothyroidism that presents emerged department with complaints of upper back pain which worsened last night. Patient states she has been experiencing similar episodes of pain for the past 3 years but last night was worse than previous episodes. Denies vomiting, fever. Patient was told by physical therapy that it may be her kidneys. Denies any dysuria vomiting fever.. Historical: - Allergies: 13:06 No Known Allergies; kb3 - Home Meds: 13:06 Unable to obtain [Active]; kb3 - PMHx: 13:06 Hyperlipidemia; Hypertension; Hypothyroidism; kb3 - PSHx: 13:06 None; kb3 - Immunization history:: Adult Immunizations up to date, Client reports receiving the 2nd dose of the Covid vaccine, Last tetanus immunization: up to date. - Social history:: Smoking status: Patient denies any tobacco usage or history of. ROS: 13:06 Constitutional: Negative for fever, chills, and weight loss, Cardiovascular: Negative jmm for chest pain, palpitations, and edema, Respiratory: Negative for shortness of breath, cough, wheezing, and pleuritic chest pain. 13:06 Back: Positive for pain with movement. 13:06 All other systems are negative. Exam: 13:06 Constitutional: This is a well developed, well nourished patient who is awake, alert, jmm and in no acute distress. Head/Face: atraumatic. Eyes: EOMI, no conjunctival erythema appreciated ENT: Moist Mucus Membranes Neck: Trachea midline, Supple Chest/axilla: Normal chest wall appearance and motion. Cardiovascular: Regular rate and rhythm. No edema appreciated Respiratory: Normal respirations, no respiratory distress appreciated Abdomen/GI: Non distended 13:06 Back: pain, that is mild, of the left subscapular area, ROM is normal. 13:06 Musculoskeletal/extremity: ROM: intact in all extremities. 13:06 Skin: Appearance: Color: normal in color. 13:06 Neuro: Orientation: is normal, Mentation: is normal, Memory: is normal. 13:06 Psych: Behavior/mood is pleasant, cooperative. Vital Signs: 13:03 BP 148 / 87; Pulse 71; Resp 20; Temp 98; Pulse Ox 99% ; Weight 74.84 kg; Height 5 ft. 8 kb3 in. (172.72 cm); Pain 8/10; 15:55 BP 183 / 83; Pulse 74; Resp 20; Pulse Ox 99% ; Pain 0/10; kb3 13:03 Body Mass Index 25.09 (74.84 kg, 172.72 cm) kb3 MDM: 13:06 Patient medically screened. [facility] 15:49 Data reviewed: vital signs, nurses notes. Counseling: I had a detailed discussion with [facility] the patient and/or guardian regarding: the historical points, exam findings, and any diagnostic results supporting the discharge/admit diagnosis, radiology results, the need for outpatient follow up, to return to the emergency department if symptoms worsen or persist or if there are any questions or concerns that arise at home. 19:14 ED course: CT findings were discussed with the patient. Patient states that she was [facility] aware that she has aortic aneurysms. Is currently being watched by cardiology. I did offer due to onset of worsening pain transfer for evaluation from CV surgery/vascular surgery. Patient declined and is aware that this may lead to a worsening condition. Patient was otherwise given strict return precautions. Patient understood and agrees plan of care.. 03/27 13:07 Order name: CBC with Diff; Complete Time: 14:17 [facility] 03/27 13:07 Order name: BMP; Complete Time: 14:40 [facility] 03/27 13:07 Order name: CT Chest For PE Angio [facility] 03/27 13:11 Order name: Chest For Pe Angio; Complete Time: 15:16 [facility] 03/27 14:11 Order name: CT Abd/Pelvis - IV Contrast Only; Complete Time: 15:46 [facility] 03/27 14:15 Order name: Urine Dipstick-Ancillary; Complete Time: 14:17 [facility] 03/27 13:07 Order name: Saline Lock; Complete Time: 14:08 jmm 03/27 14:09 Order name: Urine Dipstick-Ancillary (obtain specimen); Complete Time: 14:09 kb3 Administered Medications: 14:00 Drug: morphine 2 mg Route: IVP; Infused Over: 4 mins; Site: left antecubital; kb3 15:00 Follow up: Response: No adverse reaction; Pain is decreased kb3 14:00 Drug: Zofran (Ondansetron) 4 mg Route: IVP; Site: left antecubital; kb3 15:56 Follow up: Response: No adverse reaction kb3 14:00 Drug: Valium (diazepam) 2 mg Route: IVP; Site: left antecubital; kb3 15:00 Follow up: Response: No adverse reaction; Pain is decreased kb3 Disposition: 03/28 15:06 Co-signature as Attending Physician, Dmitry Delgadillo MD. rn Disposition Summary: 03/27/22 15:52 Discharge Ordered Location: Home [facility] Condition: Stable jm Diagnosis - Thoracic aortic aneurysm, chronic jmm - Infrarenal abdominal aortic aneurysm [facility] Followup: [facility] - With: Private Physician - When: 1 - 2 days - Reason: Recheck today's complaints, Continuance of care, Re-evaluation by your physician Discharge Instructions: - Discharge Summary Sheet jm - Abdominal Aortic Aneurysm jm - Thoracic Aortic Aneurysm [facility] Forms: - Medication Reconciliation Form [facility] - Thank You Letter [facility] - Antibiotic Education [facility] - Prescription Opioid Use [facility] Prescriptions: - Zanaflex 4 mg Oral Tablet - take 1 tablet by ORAL route every 8 hours As needed; 20 tablet; Refills: 0, [facility] Product Selection Permitted Signatures: Dispatcher [employer] EDTN Jovanny Gill PA PA jmm Nieto, Roman, MD MD rn Bradberry, Kelly, RN RN kb3
[2022-03-27 16:39] VITALS: TEMP 98; O2SAT 99
[2022-03-27 16:45] VITALS: BP 183/83
== END 2022-03-27 16:10 | disposition home or self-care (01) ==
LOC: ER 12:33
DX: I71.43 Infrarenal abdominal aortic aneurysm, without rupture (principal); I71.20 Thoracic aortic aneurysm, without rupture, unspecified; I10 Essential (primary) hypertension
CPT/HCPCS: 85025; 80048; 36415; 81003; 71275; 74177; 96375; 96374; 99284; Q9967; J3360; J2270; J2405